=== PATIENT | female | born 1965 | race Two or more races ===

== ENCOUNTER 2023-12-12 13:18 | Outpatient (REF) | payer MEDICAID, SELFPAY ==
--- NOTE | ~2023-12-12 | CT_ITS ---
EXAMINATION: CT head/brain wo IV con CLINICAL INFORMATION: Reason for Exam tension headaches COMPARISON: None. TECHNIQUE: Contiguous axial imaging was performed from the skull base to vertex without intravenous contrast. Sagittal and coronal reformatted images were obtained. This CT examination was performed using dose optimization techniques as appropriate, variously including the following: * Automated exposure control * Adjustment of mA and/or kV according to patient size (this includes techniques or standardized protocols for targeted exams where dose is matched to indication/reason for exam; i.e. extremities or head) Use of iterative reconstruction technique DLP: 651.88 mGy-cm FINDINGS: No acute osseous or soft tissue abnormality. The mastoid air cells and visualized portions of the paranasal sinuses are well aerated. There is no evidence of acute intracranial hemorrhage or territorial infarction. No abnormal mass effect or midline shift is seen. Sandoval to white matter differentiation is well preserved. No extra-axial fluid collections are identified. No hydrocephalus. No significant volume loss. There is no abnormal attenuation within the brain parenchyma. CT/CT head/brain wo IV con IMPRESSION: Normal exam.
== END 2023-12-12 13:19 | disposition home or self-care (01) ==
LOC: HO.CT 13:18
PROVIDERS: Visit Provider Registered Nurse
DX: G44.209 Tension-type headache, unspecified, not intractable (principal)
CPT/HCPCS: 70450

== ENCOUNTER 2024-03-29 15:00 | Outpatient (AMB) | payer MEDICAID, SELFPAY ==
--- NOTE | 2024-03-29 15:05 | MHC.OFFVIS ---
Vital Signs 03/29/24 15:26 Height 5 ft 0.3 in Weight 185 lb 8 oz BMI 35.9 BP 128/70 Blood Pressure Location Lt brachial Position Sitting Respiration 16 Pulse 87 Pulse Source Pulse Oximeter Pulse Oximetry (%) 96 Oxygen Delivery Method Room Air Intake Visit Reasons: Bilateral cervical radiculopathy Intake Note: Yoana was accompanied by spouse Cisco. She comes in for initial visit was referred by primary care referred. Reports pain 7/10 Allergies No Known Allergies Allergy (Verified 03/29/24 15:11) HPI Comments Details: Leann is very pleasant 58 years old female who presents in my office with complains on pain in the cervical spine with radiation into bilateral upper extremities all the way to her wrists and fingers. She reports that this pain started 1 year ago the pain onset was gradual however now the pain is severe. She reports pain 7/10. She reports flexing had forward aggravates her pain. She reports that because of her pain she can not sleep normally can not do activities of daily living can not take care of herself can not function normally. She is on permanent disability. She needs walker or cane for ambulation. She reports today that she was placed on gabapentin 100 mg 1 tablets 3 times a day she takes medications as needed. She denies side effects of gabapentin. She was referred to MRI and MRI was done at [facility].(however when the patient was here she left me under impression when her MRI was done at [place] and I requested them to bring me the images and the copy of the report.) She never had physical therapy for her pain. She never had chiropractic manipulations. She never had any injections. Her past medical history significant for headaches history of epilepsy fatigue, diabetes, arthritis, anemia, asthma. Her past surgical history significant for right total knee replacement, breast reduction, liposuction, abdominoplasty, bariatric surgery, carpal tunnel surgery and wrist fracture surgery. Social history she is disabled individual she denies smoking cigarettes she stopped 2 years ago she denies drinking alcohol she drinks coffee but not soda she admits cannabis it helps her pain. [facility] Social History (Updated 03/29/24 @ 15:24 by Nohemi Church) Substance Use Type: Marijuana Review of Systems Const All systems reviewed & are unremarkable except as noted in HPI and below Reports no additional complaints Eyes Reports no additional complaints ENT Reports no additional complaints and Reports Normal hearing present Card Reports no additional complaints Resp Reports no additional complaints GI Reports no additional complaints Reports no additional complaints Musc Reports as per HPI Neuro Reports no additional complaints, Reports Normal hearing present, Denies Abnormal speech present, Denies confusion and Denies Sensory deficit (Neuro) Psych Reports no additional complaints and Denies confusion Physical Exam Vital Signs: Last Vital Signs Pulse 87 03/29/24 15:26 Resp 16 03/29/24 15:26 BP 128/70 03/29/24 15:26 Pulse Ox 96 03/29/24 15:26 Oxygen Delivery Method Room Air 03/29/24 15:26 BMI result Body Mass Index 35.9 Const General: no acute distress; No confusion Orientation/consciousness: patient oriented x3 and No confusion Eyes General: appearance normal, both eyes and all related structures Pupils: Equal, round and reactive pupils present EOM: EOMs intact bilaterally Neck Other: Limited range of motion cervical spine. Denies incontinence with urine and/or stool. Denies urinary retention. Denies weakness of bilateral lower extremities. Admits pain in bilateral knees and general fatigue. Tenderness on palpation in paraspinal spinal region of cervical spine. Bicep tendon reflexes and triceps tendon reflexes are brisk +2 however no clonus is observed. Neck: No full ROM and No supple Chest Chest palpation & inspection: normal inspection of the chest Resp Effort & Inspection: normal respiratory effort, able to speak in complete sentences, normal respiratory pattern, no audible wheezes and no cough Cardio Jugular venous distension: no JVD GI Inspection: Yes normal to inspection Neuro General: patient oriented x3, gait normal and No confusion Cranial nerves: Yes CN's II-XII intact bilaterally, Yes Equal, round and reactive pupils present, Yes Normal hearing present and Yes Ability to bilaterally elevate shoulders present Speech: No Abnormal speech present Gait exam (Neuro): Normal gait present Motor exam (neuro): 5/5 motor strength present throughout Sensory Exam: No Sensory deficit (Neuro) Extrem General: No pedal edema Psych Speech and movement: Normal speech and movement present Affect: normal affect Attitude: cooperative Thought process: Normal thought process present Thought content: Normal thought content present Insight: Good insight present (Psych) Judgement: Good judgement present (Psych) Results Reviewed Results Reviewed: ?MR SPINE CERVICAL without CONTRAST INDICATION: Foraminal stenosis of cervical region, pain. TECHNIQUE: Unenhanced multiplanar, multisequence MR imaging of the cervical spine. COMPARISON: None Available. FINDINGS: There is straightening of the normal cervical lordosis. Vertebral heights are well maintained. Craniocervical junction is unremarkable. There is a T2 and T1 hyperintense vertebral body lesion at the T2 vertebral level which could represent a hemangioma. Prevertebral and paraspinal soft tissues are within normal limits. Visualized portions of the posterior fossa are unremarkable. Cervical cord demonstrates normal course, caliber, and signal characteristics. No epidural fluid collection or hematoma is identified. At C2-3 there is no significant disc herniation or protrusion. No central canal or neural foraminal stenosis is demonstrated. At C3-4 there is no significant disc herniation or protrusion. Uncovertebral hypertrophy seen throughout the cervical spine. There is mild bilateral neural foraminal narrowing appreciated. No central canal stenosis is seen. At C4-5 there is slight disc bulge with uncovertebral hypertrophy. There is mild left neural foraminal narrowing and effacement of the ventral thecal sac. No central canal stenosis is seen At C5-6 there is broad-based central disc herniation with mild to moderate bilateral neural foraminal narrowing, left greater than right. Uncovertebral hypertrophy is identified. There is effacement of the ventral thecal sac. No central canal stenosis is seen. At C6-7 there is left subarticular disc protrusion is identified. There is moderate to severe left neural foraminal narrowing. Uncovertebral hypertrophy is appreciated. There is effacement of the ventral thecal sac. At C7-T1 there is central disc bulge with mild left neural foraminal narrowing. Uncovertebral hypertrophy is identified with effacement of the ventral thecal sac. IMPRESSION: Multilevel degenerative changes of the cervical spine are identified, most pronounced at C5-6 and C6-7. Uncovertebral hypertrophy is seen throughout the cervical spine. Heather Vance MD Assessment & Plan Assessment & Plan (1) Other cervical disc degeneration at C6-C7 level: Code(s): M50.323 - Other cervical disc degeneration at C6-C7 level Category: Medical (2) Radiculopathy, cervical: Code(s): M54.12 - Radiculopathy, cervical region Category: Medical (3) Chronic pain syndrome: Code(s): G89.4 - Chronic pain syndrome Category: Medical Plan When patient was in the examination room she and her boyfriend have left me with impression that she had an MRI at [facility]. However just in case I went into website of [facility] and found out that she had an MRI on 03/13/2024 results of which are dictated as above. I invited her to see me in 1 week. I may be offering her if she agrees with me interlaminar epidural steroid injection at C6-C7 interlaminar epidural steroid injection. Alternatively I can offer her neurosurgical consult because she has radiculopathic type of pain with moderate to severe left foraminal narrowing. Coding Level of Care Code New Pt Level 3 (38113) Diagnoses Other cervical disc degeneration at C6-C7 level M50.323 Radiculopathy, cervical M54.12 Chronic pain syndrome G89.4
[2024-03-29 15:26] VITALS: BP 128/70; PULSE 87; RESP 16; O2SAT 96; BMI 35.9
== END 2024-03-29 15:34 | disposition home or self-care (01) ==
PROVIDERS: PCP Physician Assistant; Referring Provider Physician Assistant; Visit Provider Anesthesiology
DX: M50.323 Other cervical disc degeneration at C6-C7 level (principal); M54.12 Radiculopathy, cervical region; G89.4 Chronic pain syndrome
CPT/HCPCS: 99203

== ENCOUNTER → 2024-03-29 15:00 | Outpatient (BNVA) | payer MEDICAID, SELFPAY | PROVIDERS: PCP Physician Assistant; Visit Provider Anesthesiology | DX: M50.323 Other cervical disc degeneration at C6-C7 level (principal); M54.12 Radiculopathy, cervical region; G89.4 Chronic pain syndrome | CPT/HCPCS: 99202 ==

== ENCOUNTER 2024-04-05 14:16 | Outpatient (AMB) | payer MEDICAID, SELFPAY ==
--- NOTE | 2024-04-05 14:24 | A.OFFVIS_ITS ---
Vital Signs 04/05/24 14:31 Height 5 ft 0.3 in Weight 185 lb 8 oz BMI 35.9 BP 130/72 Blood Pressure Location Lt brachial Position Sitting Respiration 16 Pulse 61 Pulse Source Pulse Oximeter Pulse Oximetry (%) 99 Oxygen Delivery Method Room Air Intake Visit Reasons: 1 week follow up Intake Note: Yoana was accompanied by spouse Cisco, she comes in for 1 week follow up. Reports pain 06/06. Allergies No Known Allergies Allergy (Verified 04/05/24 14:30) HPI Comments Details: Yoana is very pleasant 58 years old female who presents in my office with complains on pain in the cervical spine with radiation into bilateral upper extremities all the way to her mid forearms bilaterally. She denies radiation of the pain into wrists fingers or hands. She reports the pain mostly axial and radiation of the pain is on the background. She admits pain aggravation with flexing had backwards. She admits tenderness on palpation in paraspinal regions in the cervical spine. Therefore the pain of the patient is most likely face togenic in nature. I offered the patient diagnostic medial branch block C4-C5 C6 bilateral to help her pain. I explained the nature of diagnostic block to the patient. She had extensive physical therapy which alleviated her pain minimally. She has not satisfied with results of physical therapy. She tried OTC NSAIDs to help her pain however those medications do not help her pain. On the MRI of the cervical spine there are some changes dictated as below. All of those changes could be possible pain generators for this patient. If medial branch block diagnostic will not result in appropriate pain relief interlaminar epidural steroid injection can be offered to the patient in the attempt to alleviate her pain. Neurosurgical consult may be considered if neither diagnostic medial branch block nor epidural steroid injections will help her pain. [facility] Social History (Updated 03/29/24 @ 15:24 by Nohemi Church) Substance Use Type: Marijuana Review of Systems Const All systems reviewed & are unremarkable except as noted in HPI and below ENT Reports Normal hearing present Neuro Reports Normal hearing present, Denies Abnormal speech present, Denies confusion and Denies Sensory deficit (Neuro) Psych Denies confusion Physical Exam Vital Signs: Last Vital Signs Pulse 61 04/05/24 14:31 Resp 16 04/05/24 14:31 BP 130/72 04/05/24 14:31 Pulse Ox 99 04/05/24 14:31 Oxygen Delivery Method Room Air 04/05/24 14:31 BMI result Body Mass Index 35.9 Const General: no acute distress; No confusion Orientation/consciousness: patient oriented x3 and No confusion Eyes General: appearance normal, both eyes and all related structures Pupils: Equal, round and reactive pupils present EOM: EOMs intact bilaterally Neck Other: Limited range of motion cervical spine. Denies incontinence with urine and/or stool. Denies urinary retention. Denies weakness of bilateral lower e xtremities. Admits pain in bilateral knees and general fatigue. Tenderness on palpation in paraspinal spinal region of cervical spine. Bicep tendon reflexes and triceps tendon reflexes are brisk +2 however no clonus is observed. Neck: No full ROM and No supple Chest Chest palpation & inspection: normal inspection of the chest Resp Effort & Inspection: normal respiratory effort, able to speak in complete sentences, normal respiratory pattern, no audible wheezes and no cough Cardio Jugular venous distension: no JVD GI Inspection: Yes normal to inspection Neuro General: patient oriented x3, gait normal and No confusion Cranial nerves: Yes CN's II-XII intact bilaterally, Yes Equal, round and reactive pupils present, Yes Normal hearing present and Yes Ability to bilaterally elevate shoulders present Speech: No Abnormal speech present Gait exam (Neuro): Normal gait present Motor exam (neuro): 5/5 motor strength present throughout Sensory Exam: No Sensory deficit (Neuro) Extrem General: No pedal edema Psych Speech and movement: Normal speech and movement present Affect: normal affect Attitude: cooperative Thought process: Normal thought process present Thought content: Normal thought content present Insight: Good insight present (Psych) Judgement: Good judgement present (Psych) Results Reviewed Results Reviewed: MR SPINE CERVICAL without CONTRAST INDICATION: Foraminal stenosis of cervical region, pain. TECHNIQUE: Unenhanced multiplanar, multisequence MR imaging of the cervical spine. COMPARISON: None Available. FINDINGS: There is straightening of the normal cervical lordosis. Vertebral heights are well maintained. Craniocervical junction is unremarkable. There is a T2 and T1 hyperintense vertebral body lesion at the T2 vertebral level which could represent a hemangioma. Prevertebral and paraspinal soft tissues are within normal limits. Visualized portions of the posterior fossa are unremarkable. Cervical cord demonstrates normal course, caliber, and signal characteristics. No epidural fluid collection or hematoma is identified. At C2-3 there is no significant disc herniation or protrusion. No central canal or neural foraminal stenosis is demonstrated. At C3-4 there is no significant disc herniation or protrusion. Uncovertebral hypertrophy seen throughout the cervical spine. There is mild bilateral neural foraminal narrowing appreciated. No central canal stenosis is seen. At C4-5 there is slight disc bulge with uncovertebral hypertrophy. There is mild left neural foraminal narrowing and effacement of the ventral thecal sac. No central canal stenosis is seen At C5-6 there is broad-based central disc herniation with mild to moderate bilateral neural foraminal narrowing, left greater than right. Uncovertebral hypertrophy is identified. There is effacement of the ventral thecal sac. No central canal stenosis is seen. At C6-7 there is left subarticular disc protrusion is identified. There is moderate to severe left neural foraminal narrowing. Uncovertebral hypertrophy is appreciated. There is effacement of the ventral thecal sac. At C7-T1 there is central disc bulge with mild left neural foraminal narrowing. Uncovertebral hypertrophy is identified with effacement of the ventral thecal sac. IMPRESSION: Multilevel degenerative changes of the cervical spine are identified, most pronounced at C5-6 and C6-7. Uncovertebral hypertrophy is seen throughout the cervical spine Assessment & Plan Assessment & Plan (1) Other cervical disc degeneration at C6-C7 level: Code(s): M50.323 - Other cervical disc degeneration at C6-C7 level Category: Medical (2) Radiculopathy, cervical: Code(s): M54.12 - Radiculopathy, cervical region Category: Medical (3) Chronic pain syndrome: Code(s): G89.4 - Chronic pain syndrome Category: Medical (4) Spondylosis of cervical region without myelopathy or radiculopathy: Code(s): M47.812 - Spondylosis without myelopathy or radiculopathy, cervical region Category: Medical Plan MRI dictation as above. Spondylosis of cervical spine as well as possible radiculopathic pain could be considered. I offered this patient 1st medial branch block C4-C5 C6 bilateral diagnostic. If this will not help the patient I will offer her C5-C6 epidural steroid injection interlaminar cervical. If all of those maneuvers will not be helpful for the patient I will send her for neurosurgical consult. Patient Instructions: I here by testify that I spent 35 minutes in conversation with this patient as well as planning her care, evaluating her diagnostic studies and organizing this note. Coding Level of Care Code Est Pt Level 4 (31742) Diagnoses Other cervical disc degeneration at C6-C7 level M50.323 Radiculopathy, cervical M54.12 Chronic pain syndrome G89.4 Spondylosis of cervical region without myelopathy or radiculopathy M47.812
[2024-04-05 14:31] VITALS: BP 130/72; PULSE 61; RESP 16; O2SAT 99; BMI 35.9
== END 2024-04-05 14:58 | disposition home or self-care (01) ==
PROVIDERS: PCP Physician Assistant; Referring Provider Physician Assistant; Visit Provider Anesthesiology
DX: M50.323 Other cervical disc degeneration at C6-C7 level (principal); G89.4 Chronic pain syndrome; M47.22 Other spondylosis with radiculopathy, cervical region
CPT/HCPCS: 99214

== ENCOUNTER → 2024-04-05 14:16 | Outpatient (BNVA) | payer MEDICAID, SELFPAY | PROVIDERS: PCP Physician Assistant; Visit Provider Anesthesiology | DX: M47.812 Spondylosis without myelopathy or radiculopathy, cervical region (principal); M54.12 Radiculopathy, cervical region; M50.323 Other cervical disc degeneration at C6-C7 level; G89.4 Chronic pain syndrome | CPT/HCPCS: 99212 ==

== ENCOUNTER 2024-05-29 06:15 | Outpatient (REF) | payer MEDICAID, SELFPAY | END 2024-05-29 06:16 | disposition home or self-care (01) | LOC: CF 06:15 | PROVIDERS: Visit Provider Anesthesiology | DX: Z13.89 Encounter for screening for other disorder (principal) ==

== ENCOUNTER 2024-10-02 06:15 | Outpatient (REF) | payer MEDICAID, SELFPAY | END 2024-10-02 06:16 | disposition home or self-care (01) | LOC: CF 06:15 | PROVIDERS: Visit Provider Anesthesiology | DX: M47.812 Spondylosis without myelopathy or radiculopathy, cervical region (principal) | CPT/HCPCS: 64490; 64491; J2003; J2795; Q9967 ==

== ENCOUNTER 2024-10-02 09:26 | Outpatient (AMB) | payer MEDICAID, SELFPAY ==
--- NOTE | 2024-10-02 09:40 | MHC.OFFVIS ---
Vital Signs 10/02/24 09:46 10/02/24 11:31 Height 5 ft 0.3 in 5 ft 0.3 in Weight 185 lb 185 lb BMI 35.8 35.8 BP 138/90 H 147/83 H Blood Pressure Location Lt brachial Lt brachial Position Sitting Sitting Respiration 14 14 Pulse 84 71 Pulse Source Pulse Oximeter Pulse Oximeter Pulse Oximetry (%) 99 100 Oxygen Delivery Method Room Air Room Air Comment pre-op post-op Intake Visit Reasons: BILATERAL DIAGNOSTIC C4, C5, C6 MBB Allergies No Known Allergies Allergy (Verified 10/02/24 11:32) PFSH Social History (Updated 03/29/24 @ 15:24 by Nohemi Church) Substance Use Type: Marijuana Physical Exam Vital Signs: Last Vital Signs Pulse 71 10/02/24 11:31 Resp 14 10/02/24 11:31 BP 147/83 H 10/02/24 11:31 Pulse Ox 100 10/02/24 11:31 Oxygen Delivery Method Room Air 10/02/24 11:31 BMI result Body Mass Index 35.8 Assessment & Plan Assessment & Plan (1) Spondylosis of cervical region without myelopathy or radiculopathy: Code(s): M47.812 - Spondylosis without myelopathy or radiculopathy, cervical region Category: Medical Plan Diagnostic bilateral C4-C5 C6 MBB. Informed consent was obtained before the procedure were risks benefits and alternatives were carefully explained to the patient. All questions were answered to patient's satisfaction. Patient came to the operating room and positioned prone on the operating table. The posterior neck and upper back were prepped with ChloraPrep and draped with sterile utility towels. C-arm was brought over the operating field and sq picture of patient's cervical spine was demonstrated on the screen. Lateral masses of C4-C5 and C6 vertebras bilateral were chosen as the target of the injections. The waistline of all the lateral masses were chosen as the end point of the needle advancement. After that projection of the point of interest to the skin was injected with small amount of lidocaine 2% mixed with ropivacaine 0.5% one-to-one. After that 3 22 gauge 3 and 1/2 inch long spinal needles were driven to were the points of interest in tunnel vision fashion 1st on the right and 2nd on the left. When needle gently contacted the bones injection of the contrast was performed. . At the rest of the positions there were no intravascular spread. After that injection of the diagnostic medication comprising of ropivacaine 0.5% no more than 1 mL was injected into each needle positioned. Upon completion of the injections the needles were withdrawn and sterile band that was applied. The patient tolerated procedure well although she was slightly dizzy in the recovery room. Orders: Orders FL guidance in treatment room Today M47.812 - Spondylosis without myelopathy or radiculopathy, cervical region Coding Level of Care Code Procedure Only Diagnoses Spondylosis of cervical region without myelopathy or radiculopathy M47.812
[2024-10-02 09:46] VITALS: BP 138/90; PULSE 84; RESP 14; O2SAT 99; BMI 35.8
[2024-10-02 11:31] VITALS: BP 147/83; PULSE 71; RESP 14; O2SAT 100; BMI 35.8
== END 2024-10-02 11:57 | disposition home or self-care (01) ==
LOC: HO.PMCPRC 09:26
PROVIDERS: PCP Physician Assistant; Visit Provider Anesthesiology
DX: M47.812 Spondylosis without myelopathy or radiculopathy, cervical region (principal)
CPT/HCPCS: 64490; 64491

== ENCOUNTER 2024-10-10 10:30 | Outpatient (AMB) | payer MEDICAID, SELFPAY ==
[2024-10-10 10:55] VITALS: BP 138/88; PULSE 77; RESP 16; O2SAT 97; BMI 34.7
--- NOTE | 2024-10-10 10:55 | MHC.OFFVIS ---
Vital Signs 10/10/24 10:55 Height 5 ft 0.3 in Weight 179 lb 4 oz BMI 34.7 BP 138/88 Blood Pressure Location Lt brachial Position Sitting Respiration 16 Pulse 77 Pulse Source Pulse Oximeter Pulse Oximetry (%) 97 Oxygen Delivery Method Room Air Intake Visit Reasons: BILATERAL DIAGNOSTIC C4, C5, C6 MBB Intake Note: Patient comes in for post-op. Reports pain 3/10. Certified Nurse Aide Required: Yes Certified Nurse Aide Services: Certified Nurse Aide Offered & Declined Certified Nurse Aide Name: Spouse Cisco Accompanied by: Spouse Allergies No Known Allergies Allergy (Verified 10/10/24 10:58) HPI Comments Details: Yoana is back in my office after diagnostic medial branch block C4-C5 C6 bilateral which was performed on 10/02/2024. She reports that why she has significant discomfort from the needle stick injections she had immediate and almost complete pain relief from the discomfort of her chronic pain. She reported very good mobility restored to her neck. She record excellent activities of daily living. She is able to demonstrate improved range of motion of her cervical spine. She reports today her pain is 3/10. Her chronic pain immediately after the injection disappeared was 0/10 while she is still was experiencing some irritation and discomfort from needle injections. I offered to the patient and explained to her that I prefer to do sprint PNS for her. I explained for her details of the procedure. I will schedule her for this procedure in the injection area without sedation. Prior: very pleasant 58 years old female who presents in my office with complains on pain in the cervical spine with radiation into bilateral upper extremities all the way to her mid forearms bilaterally. She denies radiation of the pain into wrists fingers or hands. She reports the pain mostly axial and radiation of the pain is on the background. She admits pain aggravation with flexing had backwards. She admits tenderness on palpation in paraspinal regions in the cervical spine. Therefore the pain of the patient is most likely facetogenic in nature. I offered the patient diagnostic medial branch block C4-C5 C6 bilateral to help her pain. I explained the nature of diagnostic block to the patient. She had extensive physical therapy which alleviated her pain minimally. She has not satisfied with results of physical therapy. She tried OTC NSAIDs to help her pain however those medications do not help her pain. On the MRI of the cervical spine there are some changes dictated as below. All of those changes could be possible pain generators for this patient. If medial branch block diagnostic will not result in appropriate pain relief interlaminar epidural steroid injection can be offered to the patient in the attempt to alleviate her pain. Neurosurgical consult may be considered if neither diagnostic medial branch block nor epidural steroid injections will help her pain. [facility] Social History (Updated 03/29/24 @ 15:24 by Nohemi Church) Substance Use Type: Marijuana Review of Systems Const All systems reviewed & are unremarkable except as noted in HPI and below ENT Reports Normal hearing present Neuro Reports Normal hearing present, Denies Abnormal speech present, Denies confusion and Denies Sensory deficit (Neuro) Psych Denies confusion Physical Exam Vital Signs: Last Vital Signs Pulse 77 10/10/24 10:55 Resp 16 10/10/24 10:55 BP 138/88 10/10/24 10:55 Pulse Ox 97 10/10/24 10:55 Oxygen Delivery Method Room Air 10/10/24 10:55 BMI result Body Mass Index 34.7 Const General: no acute distress; No confusion Orientation/consciousness: patient oriented x3 and No confusion Eyes General: appearance normal, both eyes and all related structures Pupils: Equal, round and reactive pupils present EOM: EOMs intact bilaterally Neck Other: Limited range of motion cervical spine however with improvement today. Denies incontinence with urine and/or stool. Denies urinary retention. Denies weakness of bilateral lower extremities. Admits pain in bilateral knees and general fatigue. Tenderness on palpation in paraspinal spinal region of cervical spine. Bicep tendon reflexes and triceps tendon reflexes are brisk +2 however no clonus is observed. Neck: No full ROM and No supple Chest Chest palpation & inspection: normal inspection of the chest Resp Effort & Inspection: normal respiratory effort, able to speak in complete sentences, normal respiratory pattern, no audible wheezes and no cough Cardio Jugular venous distension: no JVD GI Inspection: Yes normal to inspection Neuro General: patient oriented x3, gait normal and No confusion Cranial nerves: Yes CN's II-XII intact bilaterally, Yes Equal, round and reactive pupils present, Yes Normal hearing present and Yes Ability to bilaterally elevate shoulders present Speech: No Abnormal speech present Gait exam (Neuro): Normal gait present Motor exam (neuro): 5/5 motor strength present throughout Sensory Exam: No Sensory deficit (Neuro) Extrem General: No pedal edema Psych Speech and movement: Normal speech and movement present Affect: normal affect Attitude: cooperative Thought process: Normal thought process present Thought content: Normal thought content present Insight: Good insight present (Psych) Judgement: Good judgement present (Psych) Results Reviewed Results Reviewed: MR SPINE CERVICAL without CONTRAST INDICATION: Foraminal stenosis of cervical region, pain. TECHNIQUE: Unenhanced multiplanar, multisequence MR imaging of the cervical spine. COMPARISON: None Available. FINDINGS: There is straightening of the normal cervical lordosis. Vertebral heights are well maintained. Craniocervical junction is unremarkable. There is a T2 and T1 hyperintense vertebral body lesion at the T2 vertebral level which could represent a hemangioma. Prevertebral and paraspinal soft tissues are within normal limits. Visualized portions of the posterior fossa are unremarkable. Cervical cord demonstrates normal course, caliber, and signal characteristics. No epidural fluid collection or hematoma is identified. At C2-3 there is no significant disc herniation or protrusion. No central canal or neural foraminal stenosis is demonstrated. At C3-4 there is no significant disc herniation or protrusion. Uncovertebral hypertrophy seen throughout the cervical spine. There is mild bilateral neural foraminal narrowing appreciated. No central canal stenosis is seen. At C4-5 there is slight disc bulge with uncovertebral hypertrophy. There is mild left neural foraminal narrowing and effacement of the ventral thecal sac. No central canal stenosis is seen At C5-6 there is broad-based central disc herniation with mild to moderate bilateral neural foraminal narrowing, left greater than right. Uncovertebral hypertrophy is identified. There is effacement of the ventral thecal sac. No central canal stenosis is seen. At C6-7 there is left subarticular disc protrusion is identified. There is moderate to severe left neural foraminal narrowing. Uncovertebral hypertrophy is appreciated. There is effacement of the ventral thecal sac. At C7-T1 there is central disc bulge with mild left neural foraminal narrowing. Uncovertebral hypertrophy is identified with effacement of the ventral thecal sac. IMPRESSION: Multilevel degenerative changes of the cervical spine are identified, most pronounced at C5-6 and C6-7. Uncovertebral hypertrophy is seen throughout the cervical spine Assessment & Plan Assessment & Plan (1) Other cervical disc degeneration at C6-C7 level: Code(s): M50.323 - Other cervical disc degeneration at C6-C7 level Category: Medical (2) Radiculopathy, cervical: Code(s): M54.12 - Radiculopathy, cervical region Category: Medical (3) Chronic pain syndrome: Code(s): G89.4 - Chronic pain syndrome Category: Medical (4) Spondylosis of cervical region without myelopathy or radiculopathy: Code(s): M47.812 - Spondylosis without myelopathy or radiculopathy, cervical region Category: Medical Plan I will schedule this patient for sprint PNS bilateral. The results of the diagnostic injection are very prominent see as above. I will see this patient in the office after the implantation of sprint PNS. With negative results of sprint PNS I will send her for neurosurgical consult. Patient Instructions: I here by testify that I spent 32 minutes in conversation with this patient as well as planning her care and organizing this note. The patient insisted on her friend interpreting today during the office visit. Coding Level of Care Code Est Pt Level 4 (60748) Diagnoses Other cervical disc degeneration at C6-C7 level M50.323 Radiculopathy, cervical M54.12 Chronic pain syndrome G89.4 Spondylosis of cervical region without myelopathy or radiculopathy M47.812
== END 2024-10-10 11:07 | disposition home or self-care (01) ==
PROVIDERS: PCP Physician Assistant; Visit Provider Anesthesiology
DX: M50.323 Other cervical disc degeneration at C6-C7 level (principal); M54.12 Radiculopathy, cervical region; G89.4 Chronic pain syndrome; M47.812 Spondylosis without myelopathy or radiculopathy, cervical region
CPT/HCPCS: 99214

== ENCOUNTER → 2024-10-10 10:30 | Outpatient (BNVA) | payer MEDICAID, SELFPAY | PROVIDERS: PCP Physician Assistant; Visit Provider Anesthesiology | DX: M50.323 Other cervical disc degeneration at C6-C7 level (principal); M54.12 Radiculopathy, cervical region; G89.4 Chronic pain syndrome; M47.812 Spondylosis without myelopathy or radiculopathy, cervical region; Z98.890 Other specified postprocedural states | CPT/HCPCS: 99212 ==

== ENCOUNTER 2024-11-30 11:38 | Outpatient (REF) | payer MEDICAID, SELFPAY ==
[2024-11-30 13:06] LABS: C Reactive Protein 1.69 mg/dL (< or = 0.50)
[2024-11-30 13:09] LABS: Erythrocyte Sedimentation Rate 11 MM/HR (0-20)
--- OUTSIDE RECORDS SUMMARY | 2024-11-30 13:28 | XMS_ITS | Continuity of Care Document ---
Author Organization [facility], [facility] Address [address] [place] [address] Care Team Providers Care Pin Or Clip Fastener Name Role Phone [facility] Primary Care Provider [phone] Assessment Encounter Date Assessment Date Assessment LastModified by Organization Details LastModified Time 10/03/2024 10/03/2024 58 year old Belarusian speaking female presents to the office for evaluation of her hearing. TMs are intact with well aerated middle ear spaces bilaterally. Brasher was midline. Audiometric testing demonstrates right moderate raising to mild sensorineural hearing loss and left mild sensorineural hearing loss raising to normal hearing at the high frequencies. Given the asymmetry we have recommended MRI IAC. Patient to follow up in the office to review MRI and receive clearance for hearing aids. Significant other was copper flotation operator Patient was seen and examined by Dr. Rowell. Adriana Donnelly PA-C functioned as a scribe for this visit. martínez Not available 10/03/2024 12:41:08 Plan of Treatment Reminders Order Date Submit Date Provider Last Modified By Organization Details Last Modified Time Details Appointments Establish ed 30 2024 01:00P M ADRIANA DONNELLY PA-C Not available Not available Not available Lab None recorded. Referral None recorded. Procedures None recorded. Surgeries None recorded. Imaging MRI, brain + internal auditory canal, w/wo contrast [address] [facility] [address] [place], [address], 10/03/2024 10:01:28 Medication Orders None recorded. Patient TargetsNo targets recorded. Patient InstructionsNo instructions recorded. Reason for Referral None Reported. Results Created Date Observation Date Name Description Value Unit Range Abnormal Flag Note LastModifiedBy Organization Detail LastModifiedTime 10/03/20 audio gram No observ ation record ed. BARCODE Not Available 2023 10:04:50 10/03/20 24 10/03/2024 audio gram No observ ation record ed. [email or web address] Not Available 04/2024 10:05:12 Result Notes None recorded. Problems Name Problem SNOMED Code Status Onset Date Resolution Date Notes Provider Name and Address Organization Details Recorded Time Sensorine ural hearing loss 97640259 Active 2019 Perceptiv e hearing loss NOS; Note: Date Diagnosed : 04/07/2020 3:18 PM (H90.5) Not Available [facility] 4 03:12:21 Sensorine ural hearing loss in right ear 18154118799 100 Active 2020 Sensorine ural hearing loss, unilatera l, right ear, with restricte d hearing on the contralat eral side; Note: Date Diagnosed : 07/13/2021 2:08 PM (H90.A21) Not Available [facility] 4 03:12:22 Lesion of oral mucosa 02291227446 43034 Active 2019 Other lesions of oral mucosa; Note: Date Diagnosed : 04/07/2020 3:09 PM (K13.79) Not Available [facility] 4 03:12:22 Dizziness and giddiness 493263724 Active 2020 Dizziness and giddiness ; Note: Date Diagnosed : 07/13/2021 2:07 PM (R42) Not Available [facility] 4 03:12:22 Sensorine ural hearing loss of bilateral ears 274507208 Active 2023 Jo miles [place] - [facility] 4 09:31:14 Problem Notes None recorded. Procedures Surgical History Date Name Laterality Status Provider Name and Address Organization Details Recorded Time 10/03/20 24 Tympanometry (01989) completed Jo Lund [place] - [facility] 10/03/2024 09:31:07 10/03/20 24 [employer] (71817) completed Jo Lund [place] - [facility] 10/03/2024 09:31:01 Imaging Results None recorded. Procedure Notes None recorded. Medical Equipment None Reported. Allergies No known drug allergies Medications Name Sig Start Date Stop Date Status Note LastModified by Organization Details LastModified Time cyclobenz aprine 10 mg tablet TOME 1 TABLETA POR V A ORAL TODOS LOS D AL ACOSTARS E 10/03 completed Not Available Not Available Not Available prednison e 10 mg tablet TOME 4 TABLETAS POR V A ORAL TODOS LOS D POR 5 D 10/03 completed Not Available Not Available Not Available ipratropi um 0.5 mg-albute rol 3 mg (2.5 mg base)/3 mL nebulizat ion soln INHALE 1 VIAL VIA NEBULIZE R TWICE DAILY 10/03 completed Not Available Not Available Not Available cetirizin e 10 mg tablet TOME 1 TABLETA POR V A ORAL TODOS LOS D active Not Available Not Available No t Available azithromy ruma 250 mg tablet TOME 2 TABLETAS V A ORAL HOY, [place] TOME 1 TABLETA DIARIAME NTE MIGUEL 4 D SEG N LAS INDICACI ONES 10/03 completed Not Available Not Available Not Available meloxicam 15 mg tablet TOME 1 TABLETA POR V A ORAL TODOS LOS D active Not Available Not Available No t Available sertralin e 100 mg tablet TOME 1 TABLETA POR V A ORAL TODOS LOS D EN LA AMBER CHECO 10/03 completed Not Available Not Available Not Available phenytoin sodium extended 100 mg capsule TOME 2 CAPSULAS POR VIA ORAL DOS VECES AL SHANDRA active Not Available Not Available No t Available fexofenad ine 180 mg tablet 10/03 completed Medicati on ID: [id number] D uration Value: 30 Brand Name: fexofena dine Sen d Method: E-Prescr ibed Sub s Allowed: subs OK Medic ationGen ericName : fexofena dine Not Available Not Available Not Available levofloxa ruma 250 mg tablet TOME EDENILSON TABLETA TODOS LOS D 10/03 completed Not Available Not Available Not Available omeprazol e 40 mg capsule,d elayed release active Medicati on ID: [id number] D uration Value: 30 Brand Name: omeprazo le Send Method: E-Prescr ibed Sub s Allowed: subs OK Medic ationGen ericName : omeprazo le Not Available Not Available Not Available butalbita l-acetami nophen-ca ffeine 50 mg-325 mg-40 mg tablet TAKE 1 TABLET BY MOUTH ONCE DAILY NEEDED FOR HEADACHE S*20/30 PER INSURANC E active Not Available Not Available No t Available pantopraz ole 20 mg tablet,de layed release TAKE 2 TABLETS BY MOUTH EVERY MORNING ON EMPTY STOMACH, WAIT 30MIN THEN EAT TO ACTIVATE THE MED 10/03 completed Not Available Not Available Not Available famotidin e 20 mg tablet TAKE 1 TABLET BY MOUTH 2 TIMES DAILY NEEDED FOR HEARTBUR N. 10/03 completed Not Available Not Available Not Available mirtazapi ne 30 mg tablet 10/03 completed Medicati on ID: [id number] D uration Value: 30 Brand Name: mirtazap ine Send Method: E-Prescr ibed Sub s Allowed: subs OK Speci al Instruct ion: TOME EDENILSON TABLETA POR V?A ORAL AL ACOSTARS E Medica tionGene ricName: mirtazap ine Not Available Not Available Not Available omeprazol e 20 mg capsule,d elayed release 10/03 completed Medicati on ID: [id number] D uration Value: 30 Brand Name: omeprazo le Send Method: E-Prescr ibed Sub s Allowed: subs OK Medic ationGen ericName : omeprazo le Not Available Not Available Not Available oxcarbaze pine 600 mg tablet TOME EDENILSON TABLETA POR VIA ORAL DOS VECES AL SHANDRA ORALLY TWICE A DAY 90 DAYS active Not Available Not Available No t Available monteluka st 10 mg tablet TOME 1 TABLETA POR V A ORAL TODOS LOS D AL ACOSTARS E active Not Available Not Available No t Available alcohol swabs USE TODOS LOS D active Not Available Not Available No t Available lisinopri l 5 mg tablet TOME 1 TABLETA POR V A ORAL TODOS LOS D AL ACOSTARS E active Not Available Not Available No t Available gabapenti n 100 mg capsule TOME 1 CAPSULA POR VIA ORAL HEMALATHA VECES AL SHANDRA active Not Available Not Available No t Available fluticaso ne propionat e 50 mcg/actua tion nasal spray,hodan pension ROCIAR 2 VECES BY NASAL ROUTE A DIARIO active Not Available Not Available No t Available Ventolin HFA 90 mcg/actua tion aerosol inhaler INHALE 2 PUFFS INTO THE LUNGS 4 TIMES DAILY NEEDED FOR COUGH OR WHEEZING . active Not Available Not Available No t Available Delmi-Lant a 200 mg-200 mg-20 mg/5 mL oral suspensio n TAKE 15 ML BY MOUTH 4 TIMES DAILY NEEDED FOR OTHER. 10/03 completed Not Available Not Available Not Available Vitamin B-12 2,500 mcg sublingua l tablet DISSOLVE 1 TABLET POR VIA ORAL TODOS LOS MORGAN active Not Available Not Available No t Available cyclobenz aprine 5 mg tablet TOME 1 TABLETA POR VIA ORAL TODOS LOS MORGAN AL ACOSTARS E CUANDO SEA NECESARI O FOR 30 DAYS active Not Available Not Available No t Available mirtazapi ne 7.5 mg tablet TOME EDENILSON TABLETA POR V A ORAL CADA NOCHE active Not Available Not Available No t Available Symbicort 160 mcg-4.5 mcg/actua tion HFA aerosol inhaler INHALE DANDO DOS SOPLIDOS INTO THE LUNGS DOS VECES AL SHANDRA 10/03 completed Not Available Not Available Not Available diclofena c 1 % topical gel APPLY 2 GRAMS TO THE AFFECTED AREA(S) BY TOPICAL ROUTE 4 TIMES PER DAY active Not Available Not Available No t Available Breo Ellipta 100 mcg-25 mcg/dose powder for inhalatio n TOME EDENILSON INHALACI N POR V A ORAL TODOS LOS D 10/03 completed Not Available Not Available Not Available Trulicity 0.75 mg/0.5 mL subcutane ous pen injector INJECT 1 PEN SUBCUTAN EOUSLY ONCE WEEKLY active Not Available Not Available No t Available Breo Ellipta 200 mcg-25 mcg/dose powder for inhalatio n TOME EDENILSON INHALACI N POR V A ORAL TODOS LOS D active Not Available Not Available No t Available baclofen 5 mg tablet 10/03 completed Medicati on ID: [id number] D uration Value: 10 Brand Name: baclofen Send Method: E-Prescr ibed Sub s Allowed: subs OK Medic ationGen ericName : baclofen Not Available Not Available Not Available Vitals Date Recorded Body height Body mass index (BMI) Body weight Provider Name and Address Organization Details Last Updated DateTime 10/03/2024 162.56 cm 31.1 kg/m2 86808.22 g Lizbet Brock [place] - [facility] 10/03/2024 09:37:32 Social History None recorded. Functional Status None recorded. Mental Status None recorded. Family History Nothing Reported. Medical History No medical history recorded. Gynecological HistoryNo gynecological history recorded. Obstetrics History GPAL:G 0 P 0 0 0 0 Past Encounters Encounter ID Performer Location Encounter Start Date Encounter Closed Date Diagnosis/Indication Diagnosis SNOMED-CT Code Diagnosis ICD10 Code [id number] ANDRES DESIR MD [facility] [address] [address] 10/03/2024 08:58:57 10/03/2024 10:04:15 Sensorineural hearing loss of bilateral ears [id number] H90.3 Health Concerns Section Related Observation LastModified by Organization Detai ls LastModified Time None Recorded Concern Status LastModified by Organization Details LastModified Time None Recorded Payers Encounter Date Sequence Insurance Name Policy Number Policy Emmanuel Covered Member ID Emmanuel Member ID Guarantor Name 10/03/2024 2 [facility] - DOS ON OR AFTER 2023 - MEDICARE ADVANTAGE [place] (MEDICARE REPLACEMENT/AD VANTAGE - PPO) Yoana Blanca [id number] Yoana Blanca 10/03/2024 1 [place] [facility] Yoana Blanca [id number] Yoana Blanca Notes Date Note Type Note Provider Name and Address Organization Details Recorded Time 10/03/2024 text/html 58 year old Belarusian speaking female presents to the office for evaluation of her hearing. She was seen over three years ago but did not receive hearing aids due to Covid. She did not end up having an MRI and was lost to follow up. She reports that her right ear has felt clogged for over a year. She notices difficulty hearing out of the right ear. She presents to the office with her boyfriend who helps translate for her. Significant other was copper flotation operator ANDRES ROWELL MD [address] [place] [address], [phone], [place] - [facility] 10/03/2024 12:41:20 OBGyn Episode No OBEpisode recorded.
== END 2024-11-30 11:39 | disposition home or self-care (01) ==
LOC: HO.LAB 11:38
PROVIDERS: PCP Physician Assistant; Visit Provider Registered Nurse
DX: G43.909 Migraine, unspecified, not intractable, without status migrainosus (principal)
CPT/HCPCS: 36415; 85652; 86140

== ENCOUNTER 2024-12-25 06:15 | Outpatient (REF) | payer MEDICAID, SELFPAY ==
--- NOTE | ~2024-12-25 | FL_ITS ---
EXAMINATION: FL GUIDANCE ONLY HISTORY: M47.812 - Spondylosis without myelopathy or radiculopathy, cervical region COMPARISON: None available. TECHNIQUE: Fluoroscopy time: 0.2 minutes. Cumulative Dose: 2.82 mGy. DAP: 0.0487 uGy-m2 (microgray-meter squared). Images: 2. FINDINGS: Images demonstrate an electrode in the right neck. FL/FL guidance in treatment room IMPRESSION: Fluoroscopy during procedure. Please see procedure report for additional information. Electronically signed by: Oscar Timmons MD 12/26/2024 07:36 AM CHRISTINE
--- OUTSIDE RECORDS SUMMARY | 2024-12-25 06:24 | XMS_ITS | Data Portability ---
Author Organization [place] - [facility], Allergy Address [address] [place] [address] Care Team Providers Care Cavalry Scout Name Role Phone [facility] Primary Care Provider Assessment Encounter Date Assessment Date Assessment LastModified by Organization Details LastModified Time 10/03/2024 10/03/2024 58 year old Vietnamese speaking female presents to the office for [...] clearance for hearing aids. Significant other was chha Patient was seen and examined by Dr. Rowell. Adriana Donnelly PA-C functioned as a scribe for this visit. martínez Not available 10/03/2024 12:41:08 Plan of Treatment Reminders Order Date Submit Date Provider Last Modified By Organization Details Last Modified Time Details Appointments Establish ed 15 2024 01:15P M ADRIANA DONNELLY PA-C Not available Not available Not available Lab None recorded. Referral None recorded. Procedures None recorded. Surgeries None recorded. Imaging MRI, brain + internal auditory canal, w/wo contrast 2023 024 [facility] [address] [place], [address], 10/03/2024 10:01:28 Medication Orders None recorded. Patient TargetsNo targets recorded. Patient InstructionsNo instructions recorded. Reason for Referral None Reported. Results Created Date Observation Date Name Description Value Unit Range Abnormal Flag Note LastModifiedBy Organization Detail LastModifiedTime 10/03/20 audio gram No observ ation record ed. BARCODE Not Available 2023 10:04:50 10/03/20 24 10/03/2024 audio gram No observ ation record ed. [email or web address] Not Available 04/2024 10:05:12 Result Notes None recorded. Problems Name Problem SNOMED Code Status Onset Date Resolution Date Notes Provider Name and Address Organization Details Recorded Time Sensorine ural hearing loss 74973634 Active 2019 Perceptiv e hearing loss NOS; Note: Date Diagnosed : 04/07/2020 3:18 PM (H90.5) Not Available [facility] 4 03:12:21 Sensorine ural hearing loss in right ear 32474756049 100 Active 2020 Sensorine ural hearing loss, unilatera l, right ear, with restricte d hearing on the contralat eral side; Note: Date Diagnosed : 07/13/2021 2:08 PM (H90.A21) Not Available [facility] 4 03:12:22 Lesion of oral mucosa 49355892151 76045 Active 2019 Other lesions of oral mucosa; Note: Date Diagnosed : 04/07/2020 3:09 PM (K13.79) Not Available [facility] 4 03:12:22 Dizziness and giddiness 554343390 Active 2020 Dizziness and giddiness ; Note: Date Diagnosed : 07/13/2021 2:07 PM (R42) Not Available [facility] 4 03:12:22 Sensorine ural hearing loss of bilateral ears 743417226 Active 2023 Jo miles [place] - [facility] 4 09:31:14 Problem Notes None recorded. Procedures Surgical History Date Name Laterality Status Provider Name and Address Organization Details Recorded Time 10/03/20 24 Tympanometry (84495) completed Jo Lund [place] - [facility] 10/03/2024 09:31:07 10/03/20 24 [employer] (28499) completed Jo Lund [place] - [facility] 10/03/2024 09:31:01 Imaging Results Imaging Date Name Status LastModified by Organiz ation Details LastModified Time 10/03/2024 audiogram completed BARCODE Information no t available 10/03/2024 10:04:50 10/03/2024 audiogram completed Information n ot available 10/03/2024 10:05:12 Procedure Notes None recorded. Medical Equipment None [...] V A ORAL TODOS LOS D EN JENNIFER KESSLER 10/03 completed Not Available Not Available Not Available phenytoin sodium extended 100 mg capsule TOME 2 CAPSULAS POR VIA ORAL DOS VECES AL SHANDRA active Not Available Not Available No t Available fexofenad ine 180 mg tablet 10/03 completed Medicati on ID: [id number] D uration Value: 30 Brand Name: fexofena dine Sen d Method: E-Prescr ibed Sub s Allowed: subs OK Medic ationGen ericName : fexofena dine Not Available Not Available Not Available levofloxa ruma 250 mg tablet TOME EDENILSON TABLETA TODOS LOS D 10/03 completed Not Available Not Available Not Available omeprazol e 40 mg capsule,d elayed release active Medicati on ID: [id number] D uration Value: 30 Brand Name: omeprazo [...] mg tablet 10/03 completed Medicati on ID: [id number] D uration Value: 30 Brand Name: mirtazap ine Send Method: E-Prescr ibed Sub s Allowed: subs OK Speci al Instruct ion: TOME EDENILSON TABLETA POR V?A ORAL AL ACOSTARS E Medica tionGene ricName: mirtazap ine Not Available Not Available Not Available omeprazol e 20 mg capsule,d elayed release 10/03 completed Medicati on ID: [id number] D uration Value: 30 Brand Name: omeprazo [...] mg tablet 10/03 completed Medicati on ID: [id number] D uration Value: 10 Brand Name: baclofen Send Method: E-Prescr ibed Sub s Allowed: subs OK Medic ationGen ericName : baclofen Not Available Not Available Not Available Vitals Date Recorded Body height Body mass index (BMI) Body weight Provider Name and Address Organization Details Last Updated DateTime 10/03/2024 162.56 cm 31.1 kg/m2 22267.22 g Lizbet Brock [place] - [facility] 10/03/2024 09:37:32 Social History None recorded. Functional Status None recorded. Mental Status None recorded. Family History Nothing Reported. Medical History No medical history recorded. Gynecological HistoryNo gynecological history recorded. Obstetrics History GPAL:G 0 P 0 0 0 0 Past Encounters Encounter ID Performer Location Encounter Start Date Encounter Closed Date Diagnosis/Indication Diagnosis SNOMED-CT Code Diagnosis ICD10 Code Diagnosis Note [id number] ANDRES DESIR MD [facility] [address] [address] 10/03/2024 08:58:57 10/03/2024 10:04:15 Sensorineural hearing loss of bilateral ears 123535485 H90.3 Audiologic al evaluation results: Right ear: {{Normal N ormal through 2 kHz Mild M oderate* M oderately- severe Sev ere Profou nd}} {{hearing sloping to a mild slopi ng to a moderate s loping to moderately severe slo ping to severe slo ping to profound f lat high frequency low frequency mid frequency cookie bite lowry curve rais ing to mild#}} {{with sen sorineural hearing loss with* cond uctive hearing loss with mixed hearing loss with}} {{excellen t good lauri r poor no measurable *}} word recognitio n. Left ear: {{Normal N ormal through 2 kHz Mild M oderate Mo derately-s evere Marva re Profoun d Mild SNHL raising to WNL#}} {{with* se nsorineura l hearing loss with condu ctive hearing loss with mixed hearing loss with}} {{excellen t good lauri r poor no measurable *}} word recognitio n. SRT and WRS could not be measured due to language barriers. Tympanomet ry: Right Ear:{{Type A Type As Type Ad Type C Type C, shallow & rounded Ty pe B* Type B with large volume Cou ld not maintain a hermetic seal}} Left Ear:{{Type A* Type As Type Ad Type C Type C, shallow & rounded Ty pe B Type B with large volume Cou ld not maintain a hermetic seal}} Health Concerns Section Related Observation LastModified by Organization Detai ls LastModified Time None Recorded Concern Status LastModified by Organization Details LastModified Time None Recorded Advance Directives Directive None Recorded Payers Encounter Date Sequence Insurance Name Policy Number Policy Emmanuel Covered Member ID Emmanuel Member ID Guarantor Name 10/03/2024 2 [facility] - DOS ON OR AFTER 2023 - MEDICARE [place]VANTAGE [place] (MEDICARE REPLACEMENT/AD VANTAGE - PPO) Yoana Blanca [id number] Yoana Blanca 10/03/2024 1 [place] [facility] Yoana Blanca [id number] Yoana Blanca Notes Date Note Type Note Provider Name and Address Organization Details Recorded Time 10/03/2024 text/html 58 year old Vietnamese speaking female presents to the office for [...] helps translate for her. Significant other was chha ANDRES ROWELL MD [address] [place] [address], [place], [address], [facility] - [facility] 10/03/2024 12:41:20 OBGyn Episode No OBEpisode recorded.
--- OUTSIDE RECORDS SUMMARY | 2024-12-25 06:24 | XMS_ITS ---
Author Organization [facility] Address [address] [address] Care Team Providers Care Track Inspecting Supervisor Name Role Phone Salud Whittaker PA-C Primary Care Provider [id number] [facility] Program Status:Enrolled (Active) Start date:08/05/2023 Enrollment date:08/05/2023 Case Team Name Relationship Phone Meg Aguilar LPN (Responsible Staff) [phone] Continued Care and Services Coordination
--- OUTSIDE RECORDS SUMMARY | 2024-12-25 06:24 | XMS_ITS | Clinical Summary ---
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 complication, without long-term current use of insulin ([facility]) Hand arthritis Essential hypertension, benign Mixed headache Left hip pain STD exposure LIPID PANEL Routine 09/26/2024 1:05 PM EDT Routine general medical examination at a [facility] facility Type 2 diabetes mellitus without complication, without long-term current use of insulin ([facility]) Hand arthritis Essential hypertension, benign Mixed headache Left hip pain STD exposure TSH W/RFLX FREE T4 Routine 09/26/2024 1: 05 PM EDT Routine general medical examination at a [facility] facility Type 2 diabetes mellitus without complication, without long-term current use of insulin ([facility]) Hand arthritis Essential hypertension, benign Mixed headache Left hip pain STD exposure HEMOGLOBIN GLYCOSYLATED A1C Routine 09/26/2024 1:05 PM EDT Routine general medical examination at a [facility] facility Type 2 diabetes mellitus without complication, without long-term current use of insulin ([facility]) Hand arthritis Essential hypertension, benign Mixed headache Left hip pain STD exposure MAMMO DIGITAL SCREEN SIERRA W CAD 3D Routine 11/12/2023 3:00 AM EST Breast cancer screening by mammogram PAP SMEAR W/HPV, ABSTRACTED Routine 03/24/2023 10:00 AM EDT MICROALBUMIN/CREATININ E RATIO, URINE, RANDOM Routine 03/08/2023 3:27 PM EDT Routine general medical examination at a [facility] facility Asthma-COPD overlap syndrome ([facility]) Essential hypertension, benign Moderate persistent asthma without complication Lower urinary tract symptoms (LUTS) HISTORIC COLONOSCOPY 02/10/2023 3:00 AM EDT from Last 3 Months or Most Recently Relevant to Health Maintenance Results * REFERRAL SCANNED DOCUMENT (10/26/2024 3:00 AM EST) Only the most recent of3 resultswithin the time period is included. 10/26/2024 3:00 AM EST us Salud Whittaker PA-C SCAN REFERRAL Final Result * RPR (DIAGNOSIS) WITH REFLEX TO TITER AND CONFIRMATORY TESTING (09/26/2024 1:05 PM EDT) Pathologist [facility] RPR (DX) W/REFL TITER AND CONFIRMATORY TESTING NON-REACT MARY LOU NON-REACT MARY LOU [employer] Comment: No laboratory evidence of syphilis. If recent exposure is suspected, submit a new sample in 2-4 weeks. Serum Blood / Unknown 09/26/2024 1 :05 PM EDT 09/26/2024 1:06 PM EDT Narrative [facility] - 10/04/2024 9:33 AM EST FASTING:NO Salud NG-C LAB - BLOOD DRAW Edited Resu lt - Final [facility] [address] [place] [address], [employer] [address] [address] * HEPATITIS C AB W/RFLX HCV RNA, QT, RT PCR (09/26/2024 1:05 PM EDT) Pathologist [facility] HEPATITIS C ANTIBODY NON-REACT MARY LOU NON-REACT MARY LOU [facility] Comment: HCV antibody was non-reactive. There is no laboratory evidence of HCV infection. In most cases, no further action is required. However, if recent HCV exposure is suspected, a test for HCV RNA (test code 78773) is suggested. For additional information please refer to http://education.[employer] [place]/faq/SVO78y0 (This link is being provided for informational/ educational purposes only.) Blood Blood / Unknown 09/26/2024 1 :05 PM EDT 09/26/2024 1:06 PM EDT Narrative [facility] - 10/04/2024 9:33 AM EST FASTING:NO Saludrosaura NG-C LAB - BLOOD DRAW Edited Resu lt - Final [facility] [address] [address], [employer] [address] [address] * (ABNORMAL) ??RHEUMATOID ARTHRITIS DIAGNOSTIC PANEL 1 (09/26/2024 1:05 PM EDT) RHEUMATOID FACTOR <10 <14 IU/mL [employer] CYCLIC CITRULLINATED PEPTIDE CCP AB IGG 29(H) 19 UNITS [employer] Comment: Reference Range Negative: ?<20 Weak Positive: ? 20-39 Moderate Positive: ?? 40-59 Strong Positive: ? >59 INTERPRETATION See Note [employer] Comment: Consistent with rheumatoid arthritis in a patient with polyarthritis. A positive anti-CCP result is frequently found in patients with early rheumatoid arthritis and may be associated with progression of joint destruction. Blood Blood / Unknown 09/26/2024 1 :05 PM EDT 09/26/2024 1:06 PM EDT Narrative [facility] - 10/04/2024 9:33 AM EST FASTING:NO Salud Whittaker PA-C LAB - BLOOD DRAW Final Resul t Performing Organization Address [facility] Co de Phone Number [facility] [address] [place] [address], [employer] [address] [address] * HIV 1/2 AG & AB W/RFLX (4TH GEN) (09/26/2024 1:05 PM EDT) Pathologist [facility] HIV AG/AB, 4TH GEN NON-REAC TIVE NON-REAC TIVE [employer] Comment: HIV-1 antigen and HIV-1/HIV-2 antibodies were not detected. There is no laboratory evidence of HIV infection. PLEASE NOTE: This information has been disclosed to you from records whose confidentiality may be protected by state law. ??If your state requires such protection, then the state law prohibits you from making any further disclosure of the information without the specific written consent of the person to whom it pertains, or as otherwise permitted by law. A general authorization for the release of medical or other information is NOT sufficient for this purpose. ?? For additional information please refer to http://[email or web address] [place]/faq/KYI083 (This link is being provided for informational/ educational purposes only.) The performance of this assay has not been clinically validated in patients less than 2 years old. Blood Blood / Unknown 09/26/2024 1 :05 PM EDT 09/26/2024 1:06 PM EDT Narrative [employer] [facility] - 10/04/2024 9:33 AM EST FASTING:NO Salud Whittaker PA-C LAB - BLOOD DRAW Final Resul t Performing Organization Address [facility] de Phone Number [email or web address] [address] [address], [employer] [address] [address] * C TRACHOMATIS/N GONORRHOEAE RNA,TMA (09/26/2024 1:05 PM EDT) Pathologist [facility] CHLAMYDIA TRACHOMATIS RNA, TMA NOT DETECTED NOT DETECTED [employer] [facility] NEISSERIA GONORRHOEAE RNA, TMA NOT DETECTED NOT DETECTED [employer] [facility] COMMENT [employer] [facility] Urine Urine specimen / Unknown 09/26/2024 1:05 PM EDT 09/26/2024 1:06 PM EDT Narrative [employer] [facility] - 10/04/2024 9:33 AM EST FASTING:NO The analytical performance characteristics of this assay, when used to test SurePath(TM) specimens have been determined by [employer]. The modifications have not been cleared or approved by the FDA. This assay has been validated pursuant to the CLIA regulations and is used for clinical purposes. For additional information, please refer to [email or web address] [place]/faq/OHE411 (This link is being provided for information/ educational purposes only.) Salud Whittaker PA-C LAB - NO BLOOD DRAW Edited R esult - Final Performing Organization Address [facility] Co de Phone Number [employer] [address] [address], [employer] [address] [address] * TSH W/RFLX FREE T4 (09/26/2024 1:05 PM EDT) Pathologist [facility] TSH W/REFLEX TO FT4 0.58 0.40 - 4.50 mIU/L [employer] [facility] Blood Blood / Unknown 09/26/2024 1 :05 PM EDT 09/26/2024 1:06 PM EDT Narrative [facility] - 10/04/2024 9:33 AM EST FASTING:NO us Salud Whittaker PA-C LAB - BLOOD DRAW Edited Resu lt - Final Performing Organization Address [facility] de Phone Number [employer] [facility] [address] [address], [employer] [address] [address] * HEPATITIS B SURFACE AG, EIA WITH REFLEX CONFIRM (09/26/2024 1:05 PM EDT) [facility] HEPATITIS B SURFACE ANTIGEN NON-REACT MARY LOU NON-REACT MARY LOU [employer] [facility] COMMENT [facility] [employer] [facility] Blood Blood / Unknown 09/26/2024 1 :05 PM EDT 09/26/2024 1:06 PM EDT Narrative [employer] [facility] - 10/04/2024 9:33 AM EST FASTING:NO For additional information, please refer to http://[email or web address] [place]/faq/CSA500 (This link is being provided for informational/ educational purposes only.) us Salud Whittaker PA-C LAB - BLOOD DRAW Edited Resu lt - Final Performing Organization Address [facility] Co de Phone Number [employer] [facility] [address] [address], [employer] [address] [address] * LYME DISEASE, IGG/IGM AB, WESTERN BLOT (09/26/2024 1:05 PM EDT) LYME DISEASE AB (IGG) WB NEGATIVE NEGATIVE [facility] 18 KD (IGG) BAND NON-REACTIVE [facility] 23 KD (IGG) BAND NON-REACTIVE [facility] 28 KD (IGG) BAND NON-REACTIVE [facility] 30 KD (IGG) BAND NON-REACTIVE [facility] 39 KD (IGG) BAND NON-REACTIVE [facility] 41 KD (IGG) BAND NON-REACTIVE [facility] 45 KD (IGG) BAND NON-REACTIVE [facility] 58 KD (IGG) BAND NON-REACTIVE [facility] 66 KD (IGG) BAND NON-REACTIVE [facility] 93 KD (IGG) BAND NON-REACTIVE [facility] LYME DISEASE AB (IGM) WB NEGATIVE NEGATIVE [facility] 23 KD (IGM) BAND NON-REACTIVE [facility] 39 KD (IGM) BAND NON-REACTIVE [facility] 41 KD (IGM) BAND NON-REACTIVE [facility] COMMENT [employer] [facility] Blood Blood / Unknown 09/26/2024 1 :05 PM EDT 09/26/2024 1:06 PM EDT Narrative [employer] [facility] - 10/04/2024 9:33 AM EST FASTING:NO Lyme immunoblot testing should only be performed on samples from patients who have had a Positive or Equivocal result in a screening assay. ?? As per CDC criteria, a Lyme disease IgG Immunoblot must show reactivity to at least 5 of 10 specific borrelial proteins to be considered positive; similarly, a positive Lyme disease IgM immunoblot requires reactivity to 2 of 3 specific borrelial proteins. Although considered negative, IgG reactivity to fewer specific borrelial proteins or IgM reactivity to only 1 protein may indicate recent B. burgdorferi infection and warrant testing of a later sample. A positive IgM but negative IgG result obtained more than a month after onset of symptoms likely represents a false- positive IgM result rather than acute Lyme disease. In rare instances, Lyme disease immunoblot reactivity may represent antibodies induced by exposure to other spirochetes. Salud Whittaker PA-C LAB - BLOOD DRAW Edited Resu lt - Final [facility] [address] [address], [facility] [address] [place] [address] * (ABNORMAL) VITAMIN B12 & FOLATE (09/26/2024 1:05 PM EDT) Pathologist [facility] VITAMIN B12 >2000(H) 200 - 1100 pg/mL [employer] FOLATE, SERUM 17.0 5.5 ng/mL [employer] Comment: ? Reference Range ? Low: ? <3.4 ? Borderline: ?3.4-5.4 ? Normal: ?>5.4 Blood Blood / Unknown 09/26/2024 1 :05 PM EDT 09/26/2024 1:06 PM EDT Narrative [facility] - 10/04/2024 9:33 AM EST FASTING:NO us Salud Whittaker PA-C LAB - BLOOD DRAW Edited Resu lt - Final [facility] [address] [address], [employer] [address] [address] * BLOOD COUNT COMPLETE AUTO&AUTO DIFRNTL WBC (09/26/2024 1:05 PM EDT) Pathologist [facility] WHITE BLOOD CELL COUNT 6.9 3.8 - 10.8 Thousand/ uL [employer] RED BLOOD CELL COUNT 4.52 3.80 - 5.10 Million/u L [employer] HEMOGLOBIN 12.9 11.7 - 15.5 g/dL [employer] HEMATOCRIT 39.8 35.0 - 45.0 % [employer] MCV 88.1 80.0 - 100.0 fL [employer] MCH 28.5 27.0 - 33.0 pg [employer] MCHC 32.4 32.0 - 36.0 g/dL [employer] Comment: For adults, a slight decrease in the calculated MCHC value (in the range of 30 to 32 g/dL) is most likely not clinically significant; however, it should be interpreted with caution in correlation with other red cell parameters and the patient's clinical condition. RDW 13.1 11.0 - 15.0 % [employer] PLATELET COUNT 361 140 - 400 Thousand/ uL [employer] MPV 9.2 7.5 - 12.5 fL [employer] ABSOLUTE NEUTROPHILS 4,016 1,500 - 7,800 cells/uL [employer] ABSOLUTE LYMPHOCYTES 1,973 850 - 3,900 cells/uL [employer] ABSOLUTE MONOCYTES 697 200 - 950 cells/uL [employer] ABSOLUTE EOSINOPHILS 131 15 - 500 cells/uL [employer] ABSOLUTE BASOPHILS 83 0 - 200 cells/uL [employer] NEUTROPHILS PCT 58.2 % [facility] LYMPHOCYTES 28.6 % [employer] MONOCYTES 10.1 % [employer] DI[facility] [employer] EOSINOPHILS 1.9 % [facility] [employer] BASOPHILS 1.2 % [employer] Blood Blood / Unknown 09/26/2024 1 :05 PM EDT 09/26/2024 1:06 PM EDT Narrative [facility] - 10/04/2024 9:33 AM EST FASTING:NO Salud Whittaker PA-C LAB - BLOOD DRAW Edited Resu lt - Final [facility] [address] [address], [employer] [address] [place] [phone] * ASSAY OF BLOOD/URIC ACID (09/26/2024 1:05 PM EDT) URIC ACID 3.5 2.5 - 7.0 mg/dL [employer] Comment: Therapeutic target for gout patients: <6.0 mg/dL ?? Blood Blood / Unknown 09/26/2024 1 :05 PM EDT 09/26/2024 1:06 PM EDT Narrative [facility] - 10/04/2024 9:33 AM EST FASTING:NO Salud Whittaker PA-C LAB - BLOOD DRAW Edited [facility] Performing Organization Address [facility] Co de Phone Number [facility] [address] [place] [address], [employer] [address] [address] * ASSAY OF MAGNESIUM (09/26/2024 1:05 PM EDT) Pathologist [facility] MAGNESIUM 2.1 1.5 - 2.5 mg/dL [employer] Blood Blood / Unknown 09/26/2024 1 :05 PM EDT 09/26/2024 1:06 PM EDT Narrative [facility] - 10/04/2024 9:33 AM EST FASTING:NO Salud Whittaker PA-C LAB - BLOOD DRAW Edited [facility] Performing Organization Address [facility] de Phone Number [email or web address] [address] [address], [employer] [address] [address] * HEMOGLOBIN GLYCOSYLATED A1C (09/26/2024 1:05 PM EDT) Pathologist [facility] HEMOGLOBIN A1C 5.4 <5.7 % of total Hgb [employer] Comment: For the purpose of screening for the presence of diabetes: <5.7% ? Consistent with the absence of diabetes 5.7-6.4% ?Consistent with increased risk for diabetes ?(prediabetes) > or =6.5% ??Consistent with diabetes This assay result is consistent with a decreased risk of diabetes. Currently, no consensus exists regarding use of hemoglobin A1c for diagnosis of diabetes in children. According to [place] Diabetes Association (ADA) guidelines, hemoglobin A1c <7.0% represents optimal control in non- diabetic patients. Different metrics may apply to specific patient populations. Standards of Medical Care in Diabetes(ADA). ?? Blood Blood / Unknown 09/26/2024 1 :05 PM EDT 09/26/2024 1:06 PM EDT Narrative [employer] [facility] - 10/04/2024 9:33 AM EST FASTING:NO us Salud Whittaker PA-C LAB - BLOOD DRAW Edited Resu lt - Final [employer] [address] [address], [employer] [address] [address] * (ABNORMAL) LIPID PANEL (09/26/2024 1:05 PM EDT) CHOLESTEROL, TOTAL 208(H) <200 mg/dL [employer] [facility] HDL CHOLESTEROL 90 > OR = 50 mg/dL [employer] [facility] TRIGLYCERIDES 117 <150 mg/dL [employer] [facility] LDL-CHOLESTEROL 97 99 mg/dL (calc) [employer] [facility] Comment: Reference range: <100 Desirable range <100 mg/dL for primary prevention; ?? <70 mg/dL for patients with CHD or diabetic patients with > or = 2 CHD risk factors. LDL-C is now calculated using the Juno-Zazueta calculation, which is a validated novel method providing better accuracy than the Friedewald equation in the estimation of LDL-C. Juno SS et al. OMAR. 2013;310(19): 6616-9553 (http://education.[employer]/faq/PWV737) CHOL/HDLC RATIO 2.3 <5.0 (calc) [facility] NON-HDL CHOLESTEROL 118 <130 mg/dL (calc) [employer] [facility] Comment: For patients with diabetes plus 1 major ASCVD risk factor, treating to a non-HDL-C goal of <100 mg/dL (LDL-C of <70 mg/dL) is considered a therapeutic option. Blood Blood / Unknown 09/26/2024 1 :05 PM EDT 09/26/2024 1:06 PM EDT Narrative [employer] [facility] - 10/04/2024 9:33 AM EST FASTING:NO us Salud Whittaker PA-C LAB - BLOOD DRAW Final Resul t [employer] [facility] [address] [address], [employer] [facility] [address] [place] [address] * (ABNORMAL) COMPREHENSIVE METABOLIC PANEL (09/26/2024 1:05 PM EDT) GLUCOSE 72 65 - 139 mg/dL [employer] Comment: ?Non-fasting reference interval UREA NITROGEN (BUN) 11 7 - 25 mg/dL [employer] [facility] CREATININE (blood) 0.53 0.50 - 1.03 mg/dL [employer] EGFR 107 > OR = 60 mL/min/1. 73m2 [facility] BUN/CREATININE RATIO SEE NOTE: [employer] Comment: ?? Not Reported: BUN and Creatinine are within ?? reference range. ? SODIUM 138 135 - 146 mmol/L [employer] [facility] POTASSIUM 4.5 3.5 - 5.3 mmol/L [employer] [facility] CHLORIDE 103 98 - 110 mmol/L [employer] CARBON DIOXIDE 27 20 - 32 mmol/L [employer] [facility] CALCIUM 9.4 8.6 - 10.4 mg/dL [employer] PROTEIN, TOTAL 6.6 6.1 - 8.1 g/dL [employer] [facility] ALBUMIN 4.0 3.6 - 5.1 g/dL [employer] [facility] GLOBULIN 2.6 1.9 - 3.7 g/dL (calc) [employer] [facility] ALBUMIN/GLOBULI N RATIO 1.5 1.0 - 2.5 (calc) [employer] [facility] BILIRUBIN, TOTAL 0.2 0.2 - 1.2 mg/dL [employer] ALKALINE PHOSPHATASE 183(H) 37 - 153 U/L [employer] [facility] AST 17 10 - 35 U/L [employer] [facility] ALT 15 6 - 29 U/L [employer] Blood Blood / Unknown 09/26/2024 1 :05 PM EDT 09/26/2024 1:06 PM EDT Narrative [facility] - 10/04/2024 9:33 AM EST FASTING:NO us Salud Whittaker PA-C LAB - BLOOD DRAW Edited Resu lt - Final Performing Organization Address City/[facility]/ZIP Co de Phone Number [facility] [address] [address], [facility] [address] [place] [address] * MAMMO DIGITAL SCREEN [facility] W CAD 3D (11/12/2023 3:00 AM EST) 11/12/2023 3:00 AM EST Salud Whittaker PA-C IMG MAMMO Edited Resul t - Final * PAP SMEAR W/HPV (03/24/2023 10:00 AM EDT) PAP SMEAR INTERPRETATION NORMAL NORMAL [facility] HPV (HUMAN PAPILLOMA) NEGATIVE NEGATIVE [facility] HPV TYPE 16 NEGATIVE NEGATIVE [facility] HPV TYPE 18 NEGATIVE NEGATIVE [facility] Swab 03/24/2023 10:0 0 AM EDT [facility] - 05/24/2023 10:31 AM EDT Negative for squamous intraepithelial lesion and malignancy High risk HPV assay: Negative Provider [facility] - NO BLOOD DRAW Final Result Performing Organization Address City/[facility]/ZIP Co de Phone Number [facility] [address] [place] [address], * MICROALBUMIN/CREATININE RATIO, URINE, RANDOM (03/08/2023 3:27 PM EDT) CREATININE, RANDOM URINE 122 20 - 275 mg/dL [facility] MICROALBUMIN 0.6 mg/dL [employer] [facility] [employer] [employer] [facility] Comment: Reference Range Not established MICROALBUMIN/CREA TININE RATIO, RANDOM URINE 5 <30 mcg/mg creat [facility] [employer] [facility] Comment: The ADA defines abnormalities in albumin excretion as follows: Albuminuria Category ?Result (mcg/mg creatinine) Normal to Mildly increased ?? <30 Moderately increased ? 30-299 Severely increased ? > OR = 300 The ADA recommends that at least two of three specimens collected within a 3-6 month period be abnormal before considering a patient to be within a diagnostic category. Urine Urine specimen / Unknown 03/08/2023 3:27 PM EDT 03/08/2023 3:28 PM EDT Salud Whittaker PA-C LAB - NO BLOOD DRAW Final Re sult [facility] [address] [address], [facility] [address] [place] [address] * HISTORIC COLONOSCOPY (02/10/2023 3:00 AM EDT) 02/10/2023 3:00 AM EDT Salud Whittaker PA-C PROCEDURES Final Result from Last 3 Months or Most Recently Relevant to Health Maintenance Insurance [id number] [facility] Care Teams Security Expert Relationship Specialty Start Date End Date Salud Whittaker PA-C [address] [place] [id number] PCP - General Internal Medicine 03/15/19
--- OUTSIDE RECORDS SUMMARY | 2024-12-25 06:24 | XMS_ITS | Clinical Summary ---
Author Organization [address] [facility] Address [address] [place] [address] Phone Care Team Providers Care Drop Wire Aliner Name Role Phone Salud Whittaker Primary Care Provider [phone] Allergies Active Allergy Reactions Criticality Noted Date Comments Amitriptyline Itching 03/19/2019 Dulaglutide 05/07/2021 No weight loss Hydromorphone Itching 03/19/2019 Orphenadrine Itching 03/19/2019 Topiramate 08/15/2023 Other reaction(s): Other (See Comments) Medications Medication Sig Dispensed Refills Start Date End Date Status albuterol HFA (Ventolin HFA) 90 mcg/actuation inhaler INHALE 2 PUFFS INTO THE LUNGS 4 TIMES DAILY NEEDED FOR COUGH OR WHEEZING. 08/01/2024 Active cetirizine (ZyrTEC) 10 mg tablet TOME EDENILSON TABLETA TODOS LOS MORGAN 07/05/2024 Active fluticasone propionate (FLONASE) 50 mcg/actuation nasal spray 2 Sprays by Nasal route daily. 05/04/2024 Active montelukast (SINGULAIR) 10 mg tablet TOME EDENILSON TABLETA TODOS LOS MORGAN AL ACOSTARSE 04/04/2024 Active fluticasone-umeclid inium-vilanterol (Trelegy Ellipta) 100-62.5-25 mcg inhaler Inhale 1 Puff into the lungs daily. Rinse mouth after administration. 04/04/2024 Active gabapentin (NEURONTIN) 100 mg capsule Take 1 Capsule by mouth. 12/19/2023 Active diclofenac (VOLTAREN) 1 % topical gel Apply 2gm qhs to shoulder 08/05/2023 Active ipratropium-albuter oL (DUONEB) 0.5-2.5 mg/3 mL nebulizer solution Inhale 3 mL into the lungs 2 times daily. 02/02/2024 Active meloxicam (MOBIC) 15 mg tablet Take 1 tablet (15 mg total) by mouth 1 (one) time each day. 08/15/2023 Active famotidine (PEPCID) 20 mg tablet Take 1 Tablet by mouth 2 times daily as needed for Heartburn. 06/23/2023 Active FREESTYLE LANCETS MISC 1 Strip 3 times daily. 11/23/2020 Active blood sugar diagnostic (FreeStyle Lite Strips) test strip TO TEST BLOOD GLUCOSE THREE TIMES DAILY 12/28/2020 Active dulaglutide (Trulicity) 0.75 mg/0.5 mL pen injector injection INJECT 1 PEN ONCE WEEKLY 05/08/2022 Active cyanocobalamin, vitamin B-12, 2,500 mcg tablet, sublingual DISSOLVE 1 TABLET POR V A ORAL TODOS LOS D 08/12/2021 Active alcohol swabs pads, medicated USE SEG N LO INDICADO HEMALATHA VECES AL D A 07/31/2021 Active lisinopriL (PRINIVIL,ZESTRIL) 5 mg tablet Take 1 tablet (5 mg total) by mouth 1 (one) time each day. Active phenytoin (DILANTIN) 100 mg ER capsule Take by mouth 2 times daily. Active OXcarbazepine (TRILEPTAL) 600 mg tablet Take 600 mg by mouth 2 times daily. Active butalbital-acetamin vyyow-zkfctzqj-irwp ine (FIORICET WITH CODEINE) 04-022-11-30 mg per capsule Take 1 capsule by mouth every 4 hours as needed. Active aluminum-magnesium hydroxide-simethico ne (Delmi-Lanta) 200-200-20 mg/5 mL suspension TAKE 15 ML BY MOUTH 4 TIMES DAILY NEEDED FOR OTHER. 769 mL 11 10/29/2024 Active pantoprazole (PROTONIX) 20 mg EC tablet TAKE 2 TABLETS BY MOUTH EVERY MORNING ON EMPTY STOMACH, WAIT 30MIN THEN EAT TO ACTIVATE THE MED 180 tablet 1 11/16/2024 Active Active Problems Problem Noted Date Diagnosed Date Asthma exacerbation 12/06/2023 Overview (09/12/2024): Last Assessment & Plan: Efe is a 58-year-old woman with 1 week of runny nose, severe wheezing and shortness of breath. After examining her I agree that she most likely has a episode of asthma exacerbation. This may have been precipitated by a virus including RSV and/or COVID. I will do the followin. Prednisone 40 mg p.o. every day for 5 days 2. Azithromycin for 5 days 3. Robitussin orally dwkq-ant-xhqliog for cough 4. Continue only with Symbicort 160 mcg 2 puffs twice a day. Breo has been discontinued 5. Advised that if she does improve in 3 to 5 days she will need to be going to the ED to be tested or urgent care. Follow-up with Regina Anemia 07/31/2022 Bipolar disorder 07/31/2022 Depression 07/31/2022 Cervical spondylosis 07/31/2022 Constipation 07/31/2022 Generalized anxiety disorder 07/31/2022 HTN (hypertension) 07/31/2022 Insomnia disorder 07/31/2022 Levoscoliosis of thoracic spine 07/31/2022 Migraines 07/31/2022 Mild intermittent asthma, uncomplicated 07/31/20 22 Other seasonal allergic rhinitis 07/31/2022 Seizure 07/31/2022 Abnormality of lung on CXR 08/21/2019 Asthma-COPD overlap syndrome 08/21/2019 Centrilobular emphysema 08/21/2019 Moderate persistent asthma without complication 08/21/2019 Encounters Date Type Department Care Team Description 10/26/2024 10:30 AM EST Office Visit Pulmonolgy - [address] [place] [address] Salud Mcgill NP [place] (Primary Dx); Witnessed episode of apnea; Asthma-COPD overlap syndrome (CMS/HCC); Centrilobular emphysema (CMS/HCC); Moderate persistent asthma without complication; Insomnia, unspecified type; Class 1 obesity without serious comorbidity in adult, unspecified BMI, unspecified obesity type from Last 3 Months Immunizations Name Administration Dates Next Due Influenza Quadravalent, MDCK , 0.5ml, preservative free (Flucelvax) 6mo and older 08/21/2019 Pfizer SARS-CoV-2 COVID-19, mRNA, LNP-S, preservative free 04/30/2021,04/09/2021 Pneumococcal conjugate 13 va lent (Prevnar 13, PCV13) 2mo and older 08/21/2019 Surgical History Surgery Date Site/Laterality Comments GASTRIC BYPASS N/A PROCEDURE: AK GASTRIC RSTCV W/BYP W/SM INT RCNSTJ LIMIT ABSRPJ KNEE SURGERY Bilateral PROCEDURE: HISTORICAL KNEE SURGERY KIDNEY STONE SURGERY PROCEDURE: AK NEPHROLITHOTOMY REMOVAL CALCULUS BREAST REDUCTION PROCEDURE: AK BREAST REDUCTION COLONOSCOPY PROCEDURE: HISTORICAL COLONOSCOPY Medical History Medical History Date Comments Bipolar disorder (CMS/HCC) DX:Bi polar disorder (HCC) Mild intermittent asthma, uncomplicated DX:Mild intermittent asthma, uncomplicated HTN (hypertension) DX:HTN (hyper tension) Seizure (CMS/HCC) DX:Seizure (HC C); COMMENT: Hx of Epilepsy. Sees Migraines DX:Migraines Hx of smoking DX:Hx of smoking Hx of multiple pulmonary nodules 2018 DX:Hx of multiple pulmonary nodules Anemia DX:Anemia Insomnia disorder DX:Insomnia di sorder Constipation DX:Constipation Depression DX:Depression Levoscoliosis of thoracic spine DX:Levoscoliosis of thoracic spine Cervical spondylosis DX:Cervical spondylosis Other seasonal allergic rhinitis DX:Other seasonal allergic rhinitis Osteoporosis DX:Osteoporosis H/O: facial fractures DX:H/O: fa cial fractures Generalized anxiety disorder DX: Generalized anxiety disorder Obesity DX:Obesity; COMM ENT: s/p bariatric surgery Diabetes mellitus type 2, co ntrolled, with complications (CMS/HCC) DX:Diabetes mellitus type 2, controlled, with complications (HCC) Esophageal reflux DX:Esophageal reflux Family History Medical History Relation Name Comments Other cancer Aunt 1 found metastati c, unknown primary Other cancer Aunt 2 skin Stomach cancer Mother Other cancer Paternal Grandmother found m etastatic, unknown primary Lung cancer Neg Hx Relation Name Status Comments Aunt 1 Alive Aunt 2 Alive Mother Paternal Grandmother Social History Tobacco Use Types Packs/Day Years Used Date Smoking Tobacco: Former Cigarettes 1.5 39.4 0 1982 - 04/23/2022 Smokeless Tobacco: Never Alcohol Use Standard Drinks/Week Comments No 0 (1 standard drink = 0.6 oz pur e alcohol) Sex and Gender Information Value Date Recorded Sex Assigned at Not on file Gender Identity Not on file Sexual Orientation Not on file Job Start Date Occupation Industry Not on file Not on file Not on file Obstetrics History Last Filed Vital Signs Vital Sign Reading Time Taken Comments Blood Pressure 126/70 10/26/2024 10:30 AM EST Pulse 86 10/26/2024 10:30 AM EST Temperature 36.3 ??C (97.4 ??F) 10/26/2024 10:[address] Respiratory Rate - - Oxygen Saturation 98% 10/26/2024 10:30 AM EST Inhaled Oxygen Concentration - - Weight 81.6 kg (180 lb) 10/26/2024 10:30 AM EST Height 162.6 cm (5' 4 ) 10/26/2024 10:30 AM EST Body Mass Index 30.9 10/26/2024 10:30 AM EST Plan of Treatment Upcoming Encounters Date Type Department Care Team (Late st Contact Info) Description 02/25/2025 2:00 PM EDT Office Visit Pulmonolgy - [place] [address] [facility] [address] [place] [phone] Salud Mcgill NP [address] [facility] [address] [place] [address] Health Maintenance Due Date Last Done Comments Diabetes: Annual Foot Exam 1975 Diabetes: Annual Retina Eye Exam 1975 Social Influencers of Health Screening 11/06/2022 DTaP,Tdap,and Td Vaccines (2 - Td or Tdap) 07/02/2023 07/02/2013 COVID-19 Vaccine ( season) 2024 04/01/2022, 04/30/2021, 04/09/2021 Influenza Vaccine (#1) 2024 , 08/21/2019, 09/15/2015, Additional history exists Diabetes: Annual Urine Albumin-Creatinine Ratio (uACR) 10/26/2024 03/08/2023, 03/08/2023 Depression Screening 12/19/2024 12/19/2023 Diabetes: Blood Sugar Control Test (HGBA1C) 03/27/2025 09/26/2024, 11/04/2023 Lung Cancer Screening (Low Dose CT) 04/17/2025 04/17/2024, 04/16/2024, 04/08/2023, Additional history exists Diabetes: Annual GFR (Glomerular Filtration Rate) 09/26/2025 09/26/2024, 11/04/2023 Hypertension/CHF/CAD Annual BMP Blood Test 09/26/2025 09/26/2024, 11/04/2023 Breast Cancer Screening 11/12/2025 11/12/2023, 08/08 Cervical Cancer Screening: HPV 03/24/2028 03/24/2023 Cholesterol Screening (Lipid Panel) 09/26/2029 09/26/2024, 09/26/2024, 11/04/2023, Additional history exists Pneumococcal Vaccine: Pediatrics (0 to 5 Years) and At-Risk Patients (6 to 64 Years) (3 of 3 - PPSV23 or PCV20) 2030 08/21/2019, 02/11/2011 Colorectal Cancer Screening: Colonoscopy 02/10/2033 02/10/2023 RSV Immunization Patients 60+ Years Old (1 - 1-dose 75+ series) 2040 Hepatitis A Vaccines Aged Out 11/13/2004, 05/15/20 04 No longer eligible based on patient's age to complete this topic Hepatitis B Vaccines Completed 11/13/2004, 06/15/2004, 05/15/2004 HIV Screening Completed 08/26/2020 Zoster Vaccines Completed 08/05/2021, 0711/2020, 05/17/2018 Hepatitis C Screening Completed 09/26/2024, 020 HIB Vaccines Aged Out No longer eligi ble based on patient's age to complete this topic HPV Vaccines Aged Out No longer eligi ble based on patient's age to complete this topic IPV Vaccines Aged Out No longer eligi ble based on patient's age to complete this topic MMR Vaccines Aged Out No longer eligi ble based on patient's age to complete this topic Meningococcal ACWY Vaccine Aged Out N o longer eligible based on patient's age to complete this topic RSV Immunization Patients Under 20 months Aged Out No longer eligible based on patient's age to complete this topic Varicella Vaccines Aged Out No longer eligible based on patient's age to complete this topic Procedures Procedure Name Priority Date/Time Associated Diagnosis Comments CT LUNG SCREENING LOW DOSE Routine 04/17/2024 4:53 PM EDT Encounter for screening for malignant neoplasm of respiratory organs ANNUAL BMP BLOOD TEST Routine 11/04/2023 HEMOGLOBIN A1C Routine 11/04/2023 LIPID PANEL Routine 11/04/2023 HPV Routine 03/24/2023 URINE ALBUMIN CREATININE RATIO Routine 03/08/2023 COLONOSCOPY Routine 02/10/2023 HEPATITIS C SCREENING Routine 08/26/2020 HIV SCREENING Routine 08/26/2020 DARIEL SCREENING DIGITAL Routine 08/08/2019 5:14 PM EDT Encounter for screening mammogram for malignant neoplasm of breast from Last 3 Months or Most Recently Relevant to Health Maintenance Results * CT LUNG SCREENING LOW DOSE (04/17/2024 4:53 PM EDT) Anatomical Region Laterality Modality Computed Tomogra phy 04/16/2024 1:57 PM EDT Narrative 04/17/2024 4:53 PM EDT [facility] Diagnostic Imaging Department [address] [place] [address] Patient: ??EFE PIERRE ?/Age/Sex: 1965 - 58 - F Unit#: ??[id number] ? Location/Status: ??SPDICATLS/REG CLI ? Mnemonic/Ordering Site: ??CTLUNGLD/SPCT Ordering Physician: ??FEDE MONTZE MD CT Lung Screening Low Dose - 04/16/24 - 1404 Report Status:Signed PROCEDURE: CT chest lung cancer screening low dose examination. INDICATION: CT lung screening. TECHNIQUE: Chest CT without intravenous contrast was performed. ??Low-dose examination was performed. ??Reformatted images were evaluated. DOSE: CTDIvol: 4.8mGy. ??Total exam DLP: 158.3mGy-cm COMPARISON: CT chest March 2023 FINDINGS: NODULES: Small nodule in the periphery of the left lower lobe is stable. ??No new nodules are identified. LUNGS: Minimal emphysematous changes. OTHER: Limited views of the upper abdomen appear normal. ??Mild degenerative changes are noted in the thoracic spine. ??Mediastinum appears within normal limits. ??No significant lymphadenopathy. ??Minimal coronary atherosclerotic disease. IMPRESSION: Stable examination with mild emphysematous disease. Lung-RADS 2. ??Follow up examination is advised in one year. Dictating Physician: ??KAREY JAIN MD Electronically Signed by: ??KAREY JAIN MD Dic Date/Time: ??04/17/24 1647 Sign date/Time: ??04/17/24 1653 Procedure Note Karey Jain MD - 07/16/2024 [facility] Diagnostic Imaging Department [address] [place], [place] [id number] Patient: EFE PIERRE/Age/Sex: 1965 - 58 - F Unit#: [id number] Location/Status: SPDICATLS/REG CLI Mnemonic/Ordering Site: [facility] Ordering Physician: FEDE MONTEZ MD CT Lung Screening Low Dose - 04/16/24 - 1404 Report Status:Signed PROCEDURE: CT chest lung cancer screening low dose examination. INDICATION: CT lung screening. TECHNIQUE: Chest CT without intravenous contrast was performed.Low-dose examination was performed. Reformatted images were evaluated. DOSE: CTDIvol: 4.8mGy. Total exam DLP: 158.3mGy-cm COMPARISON: CT chest March 2023 FINDINGS: NODULES: Small nodule in the periphery of the left lower lobe is stable.No new nodules are identified. LUNGS: Minimal emphysematous changes. OTHER: Limited views of the upper abdomen appear normal. Milddegenerative changes are noted in the thoracic spine. Mediastinum appears withinnormal limits. No significant lymphadenopathy. Minimal coronaryatherosclerotic disease. IMPRESSION: Stable examination with mild emphysematous disease. Lung-RADS 2. Follow up examination is advised in one year. Dictating Physician: KAREY JAIN MD Electronically Signed by: KAREY JAIN MD Dic Date/Time: 04/17/24 1647 Sign date/Time: 04/17/24 1653 Fede Montez MD IMG CT PROCEDURES * Annual BMP Blood Test (11/04/2023) Annual BMP Blood Test abstracted Historical Provider [facility] E * Hemoglobin A1c (11/04/2023) Hemoglobin A1C 0.0 % Comment:abstracted, no inter pretation Blood Venous blood specimen / Unknown Historical Provider LAB BLOOD ORDERAB LES * Cervical Cancer Screening: HPV (03/24/2023) [facility] Cervical Cancer Screening: HPV abstracted, no interpretation Historical Provider [facility] NAYELY E * Urine Albumin Creatinine Ratio (03/08/2023) [facility] Urine Albumin Creatinine Ratio abstracted Historical Provider [facility] * Colonoscopy (02/10/2023) [facility] Colonoscopy abstracted, no interpretation Anatomical Region Laterality Modality Other Historical Provider [facility] * HIV Screening (08/26/2020) [facility] HIV Screening abstracted Historical Provider [facility] * Hepatitis C Screening (08/26/2020) [facility] Hepatitis C Screening abstracted Historical Provider [facility] * DARIEL SCREENING DIGITAL (08/08/2019 5:14 PM EDT) Anatomical Region Laterality Modality Mammography 08/08/2019 1:51 PM EDT Narrative 08/08/2019 5:14 PM EDT [facility] Diagnostic Imaging Department [address] [place], [place] [id number] Patient: ??EFE PIERRE ?/Age/Sex: 1965 - 53 - F Unit#: ??[id number] ? Location/Status: ??SPDIMAM/REG CLI ? Mnemonic/Ordering Site: ??DIGSC/SPMAM Ordering Physician: ??MARIETTA HERNANDEZ APRN Dariel Screening Digital - 08/08/19 - 1421 EXAM: [facility] Screening Digital EXAM DATE AND TIME: 08/08/2019 2:22 PM HISTORY: ??Screening. Reduction mammoplasty in 2007. Maternal grandmother had breast carcinoma. COMPARISON: ??08/29/14, 05/24/13, 04/30/11 TECHNIQUE: CC and MLO views of both breasts were obtained using full field digital mammography. Bilateral digital breast tomosynthesis was performed in the MLO projection. Computer aided detection with the [employer] 7.2-H was employed. TISSUE DENSITY: b. There are scattered areas of fibroglandular density. FINDINGS: Reduction mammoplasty sequelae are again noted. No suspicious masses, grouped microcalcifications, or areas of architectural distortion are seen. Several benign rim calcifications are again seen. Few scattered microcalcifications are without significant change. The skin and vascularity are unremarkable. IMPRESSION: Stable mammographic appearance of the breasts. ??No evidence of malignancy is seen. A negative mammogram in the presence of a clinically suspicious palpable abnormality does not preclude the possibility of malignancy or alter the indications for biopsy. BI-RADS: ??Category 2: Benign RECOMMENDATION(S): 1: Routine screening mammogram BILATERAL in 1 year. [id number], [id number] 3342F, 7025F Dictating Physician: ??AMALIA BALLARD MD Electronically Signed by: ??AMALIA BALLARD MD Dic Date/Time: ??08/08/19 171 Sign date/Time: ??08/08/19 171 Procedure Note Amalia Ballard - 11/17/2022 [facility] Diagnostic Imaging Department [address] [place] [id number] Patient: SHYAM BERNARDEFEMILLICENT López./Age/Sex: 1965 - 53 - F Unit#: [id number] Location/Status: SPDIMAM/REG CLI Mnemonic/Ordering Site: [facility] Ordering Physician: MARIETTA HERNANDEZ APRN [facility] Screening Digital - 08/08/19 - 1421 EXAM: [facility] Screening Digital EXAM DATE AND TIME: 08/08/2019 2:22 PM HISTORY: Screening. Reduction mammoplasty in 2007. Maternal grandmotherhad breast carcinoma. COMPARISON: 08/29/14, 05/24/13, 04/30/11 TECHNIQUE: CC and MLO views of both breasts were obtained using fullfield digital mammography. Bilateral digital breast tomosynthesis was performedin the MLO projection. Computer aided detection with the [employer] 7.2-Riskonnectas employed. TISSUE DENSITY: b. There are scattered areas of fibroglandular density. FINDINGS: Reduction mammoplasty sequelae are again noted. No suspicious masses, grouped microcalcifications, or areas ofarchitectural distortion are seen. Several benign rim calcifications are again seen.Few scattered microcalcifications are without significant change. The skinand vascularity are unremarkable. IMPRESSION: Stable mammographic appearance of the breasts. No evidence of malignancyis seen. A negative mammogram in the presence of a clinically suspicious palpable abnormality does not preclude the possibility of malignancy or alter the indications for biopsy. BI-RADS: Category 2: Benign RECOMMENDATION(S): 1: Routine screening mammogram BILATERAL in 1 year. [id number], [id number] 3342F, 7025F Dictating Physician: AMALIA BALLARD MD Electronically Signed by: AMALIA BALLARD MD Dic Date/Time: 09/11/19 1713 Sign date/Time: 08/08/191713 Marietta Hernandez APN IMG BI PROCEDURE S from Last 3 Months or Most Recently Relevant to Health Maintenance Care Teams Drop Wire Aliner Relationship Specialty Start Date End Date Salud Whittaker PA [address] [place] [address] PCP - General Internal Medicine 06/05/21
== END 2024-12-25 06:16 | disposition home or self-care (01) ==
LOC: CF 06:15
PROVIDERS: Visit Provider Anesthesiology
DX: M47.812 Spondylosis without myelopathy or radiculopathy, cervical region (principal); M50.323 Other cervical disc degeneration at C6-C7 level; G89.4 Chronic pain syndrome
CPT/HCPCS: 64555; J2003

== ENCOUNTER 2024-12-25 10:03 | Outpatient (AMB) | payer MEDICAID, SELFPAY ==
[2024-12-25 10:17] VITALS: BP 118/91; PULSE 75; RESP 16; O2SAT 98
--- NOTE | 2024-12-25 10:17 | MHC.OFFVIS ---
Vital Signs 12/25/24 10:17 12/25/24 11:14 BP 118/91 H 123/81 Blood Pressure Location Rt brachial Rt brachial Position Sitting Sitting Respiration 16 16 Pulse 75 73 Pulse Source Pulse Oximeter Pulse Oximeter Pulse Oximetry (%) 98 97 Oxygen Delivery Method Room Air Room Air Intake Visit Reasons: RIGHT C4 (POSS C5, POSS C6) SPRINT PNS TRIAL [employer] Services: [employer] Offered & Declined [employer] Name: Prefers to translate Allergies No Known Allergies Allergy (Verified 12/25/24 10:17) Medication List - Last Reconciled 12/25/24 by Gudelia Stevens LPN albuterol sulfate 90 mcg/actuation (Ventolin HFA) 2 puffs inhalation QID PRN drjdixvwyb-imcteuzipoirv-dqtr 50-325-40 mg 1 tab PO DAILY PRN cyanocobalamin (vitamin B-12) (Vitamin B-12) 2,500 mcg PO DAILY dulaglutide (Trulicity) mg subcut QWEEK famotidine 20 mg PO BID PRN ipratropium-albuterol 0.5 mg-3 mg(2.5 mg base)/3 mL mL inhalation BID meloxicam 15 mg PO DAILY mirtazapine 7.5 mg PO BEDTIME montelukast 10 mg PO BEDTIME oxcarbazepine 600 mg PO BID pantoprazole 40 mg PO QAM phenytoin sodium extended 200 mg PO sertraline 100 mg PO QAM [facility] Social History (Updated 03/29/24 @ 15:24 by Nohemi Church) Substance Use Type: Marijuana Physical Exam Vital Signs: Last Vital Signs Pulse 73 12/25/24 11:14 Resp 16 12/25/24 11:14 BP 123/81 12/25/24 11:14 Pulse Ox 97 12/25/24 11:14 Oxygen Delivery Method Room Air 12/25/24 11:14 Assessment & Plan Assessment & Plan (1) Other cervical disc degeneration at C6-C7 level: Code(s): M50.323 - Other cervical disc degeneration at C6-C7 level Category: Medical (2) Radiculopathy, cervical: Code(s): M54.12 - Radiculopathy, cervical region Category: Medical (3) Chronic pain syndrome: Code(s): G89.4 - Chronic pain syndrome Category: Medical (4) Spondylosis of cervical region without myelopathy or radiculopathy: Code(s): M47.812 - Spondylosis without myelopathy or radiculopathy, cervical region Category: Medical Plan Percutaneous implantation of peripheral nerve stimulation Sprint system C5 right side. After the risks, benefits and alternatives were discussed with the patient and informed consent was obtained, patient was placed in the prone position and padded to foster comfort. Time out was performed delineating correct site and side of the procedure , name and of the patient, patient participated in time out procedure. C-arm was brought over the operating field and clear picture of the C5 lamina on the right was delineated on the screen. The upper central portion of the lamina on the left was chosen as a target of the needle tip insertion . After identifying and marking the intended target, the skin around the planned entry point and the subcutaneous tissues were injected with local anesthetic forming skin wheal.. A percutaneous sleeve and stimulating probe lead introduction system were assembled, inserted and advanced through the skin wheal to the point of interest under C-arm view C5 right lamina., the introducer needle was delivered to a location in proximity to the nerve. Multiple stimulation parameters were used to deliver stimulation to the nerve in concert with stimulating at multiple positions around the nerve. The nerve target acquisition was confirmed noting generation of in the corresponding to the nerve being stimulated. Various electrical parameter combinations were tested, and the lead location was adjusted (physically relocated) until the patient indicated overlapping the distribution of the patient?s typical region of pain. The stimulating probe was removed from the introducer and a percutaneous lead was guided through the needle and delivered to a location in similar proximity to the nerve. Final location was verified with electrical stimulation. The introducer needle was removed, and the exposed end of the percutaneous lead was attached to an external stimulator unit. At the end of the case various electrical parameter combinations were again tested until the patient indicated paresthesia or muscle tension overlapping the distribution of the patient?s typical region of pain. After confirming that lead impedance was in the normal range, the external unit was detached, the needle was removed, and the lead was anchored at the skin. The lead was threaded into the connector block and electrical continuity and desired patient response was confirmed. The connector block was attached to the external stimulator unit. The site was covered with a sterile occlusive dressing and a image was taken to document final placement. Upon completion of the procedure the patient was taken outside the OR where she recovered uneventfully she went home without immediate complications. Orders: Orders FL guidance in treatment room Today M47.812 - Spondylosis without myelopathy or radiculopathy, cervical region Coding Level of Care Code Procedure Only Diagnoses Other cervical disc degeneration at C6-C7 level M50.323 Radiculopathy, cervical M54.12 Chronic pain syndrome G89.4 Spondylosis of cervical region without myelopathy or radiculopathy M47.812
--- OUTSIDE RECORDS SUMMARY | 2024-12-25 10:49 | XMS_ITS | Clinical Summary ---
Author Organization [address] [facility] Address [address] [place] [address] Phone Care Team Providers Care Lumber Trimmer Name Role Phone Salud Whittaker Primary Care Provider [phone] Allergies Active Allergy Reactions Criticality Noted Date [...] by mouth 2 times daily. Active butalbital-acetamin gmxvs-hfvpxhxe-ymlk ine (FIORICET WITH CODEINE) 17-326-81-30 mg per capsule Take 1 capsule by [...] Azithromycin for 5 days 3. Robitussin orally phce-qar-epqyegq for cough 4. Continue only with Symbicort [...] 10:30 AM EST Office Visit Pulmonolgy - [address] [place] [address] Salud Mcgill NP [place] (Primary [...] Date Site/Laterality Comments GASTRIC BYPASS N/A PROCEDURE: ID GASTRIC RSTCV W/BYP W/SM INT RCNSTJ LIMIT ABSRPJ KNEE SURGERY Bilateral PROCEDURE: HISTORICAL KNEE SURGERY KIDNEY STONE SURGERY PROCEDURE: ID NEPHROLITHOTOMY REMOVAL CALCULUS BREAST REDUCTION PROCEDURE: ID BREAST REDUCTION COLONOSCOPY PROCEDURE: HISTORICAL COLONOSCOPY Medical [...] 2:00 PM EDT Office Visit Pulmonolgy - [place] [address] [facility] [address] [place] [id number] Salud Mcgill NP [address] [facility] [address] [place] [address] Health Maintenance Due Date Last Done Comments [...] PM EDT Narrative 04/17/2024 4:53 PM EDT [facility] Diagnostic Imaging Department [address] [place] [address] Patient: ??EFE PIERRE ?/Age/Sex: 1965 - 58 - F Unit#: ??[id number] ? Location/Status: ??SPDICATLS/REG CLI ? Mnemonic/Ordering Site: ??CTLUNGLD/SPCT Ordering Physician: ??FEDE MONTEZ MD CT Lung Screening Low Dose [...] Procedure Note Karey Jain MD - 07/16/2024 [facility] Diagnostic Imaging Department [address] [place], [place] [id number] Patient: EFE PIERRE/Age/Sex: 1965 - 58 - F Unit#: [id number] Location/Status: SPDICATLS/REG CLI Mnemonic/Ordering Site: [facility] Ordering Physician: FEDE [...] Annual BMP Blood Test abstracted Historical Provider [facility] E * Hemoglobin A1c (11/04/2023) Hemoglobin A1C 0.0 % Comment:abstracted, no inter pretation Blood Venous blood specimen / Unknown Historical Provider LAB BLOOD ORDERAB LES * Cervical Cancer Screening: HPV (03/24/2023) Pathologist [facility] Cervical Cancer Screening: HPV abstracted, no interpretation Historical Provider [facility] E * Urine Albumin Creatinine Ratio (03/08/2023) Pathologist [facility] Urine Albumin Creatinine Ratio abstracted Historical Provider [facility] E * Colonoscopy (02/10/2023) Pathologist [facility] Colonoscopy abstracted, no interpretation Anatomical Region Laterality Modality Other Historical Provider [facility] * HIV Screening (08/26/2020) [facility] HIV Screening abstracted Historical Provider [facility] E [facility] Hepatitis C Screening (08/26/2020) Pathologist [facility] Hepatitis C Screening abstracted Historical Provider [facility] * DARIEL SCREENING DIGITAL (08/08/2019 5:14 PM EDT) Anatomical Region Laterality Modality Mammography 08/08/2019 1:51 PM EDT Narrative 08/08/2019 5:14 PM EDT [facility] Diagnostic Imaging Department [address] [place], [place] [id number] Patient: ??EFE PIERRE ?/Age/Sex: 1965 - 53 - F Unit#: ??[id number] ? Location/Status: ??SPDIMAM/REG CLI ? Mnemonic/Ordering Site: ??DIGSC/SPMAM Ordering Physician: ??MARIETTA HERNANDEZ APRN Dariel Screening Digital - 08/08/19 - 1421 EXAM: [facility] Screening Digital EXAM DATE AND TIME: 08/08/2019 2:22 PM HISTORY: ??Screening. Reduction mammoplasty in 2007. Maternal grandmother had breast carcinoma. COMPARISON: ??08/29/14, 05/24/13, 04/30/11 TECHNIQUE: CC and MLO views of both breasts were obtained using full field digital mammography. Bilateral digital breast tomosynthesis was performed in the MLO projection. 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 TISSUE DENSITY: b. There [...] Routine screening mammogram BILATERAL in 1 year. [address], 47355 3342F, 7025F Dictating Physician: ??AMALIA BALLARD MD Electronically Signed by: ??AMALIA BALLARD MD Dic Date/Time: ??08/08/19 171 Sign date/Time: ??08/08/19 171 Procedure Note Amalia Ballard - 11/17/2022 [facility] Diagnostic Imaging Department [address] [place] [id number] Patient: SHYAM BERNARDEFEMILLICENT López./Age/Sex: 1965 - 53 - F Unit#: [id number] Location/Status: SPDIMAM/REG CLI Mnemonic/Ordering Site: [facility] Ordering Physician: MARIETTA HERNANDEZ APRN [facility] Screening Digital - 08/08/19 - 1421 EXAM: [facility] Screening Digital EXAM DATE AND TIME: 08/08/2019 2:22 PM HISTORY: Screening. Reduction mammoplasty in 2007. Maternal grandmotherhad breast carcinoma. COMPARISON: 08/29/14, 05/24/13, 04/30/11 TECHNIQUE: CC and MLO views of both breasts were obtained using fullfield digital mammography. Bilateral digital breast tomosynthesis was performedin the MLO projection. 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 TISSUE DENSITY: b. There are scattered [...] Routine screening mammogram BILATERAL in 1 year. 41085, 22027 3342F, 7025F Dictating Physician: AMALIA BALLARD MD Electronically Signed by: AMALIA BALLARD MD Dic Date/Time: 09/11/19 1713 Sign date/Time: 08/08/191713 Marietta Hernandez APN IMG BI PROCEDURE S from Last 3 Months or Most Recently Relevant to Health Maintenance Care Teams Lumber Trimmer Relationship Specialty Start Date End Date Salud Whittaker PA [address] [place] [address] PCP - General Internal Medicine 06/05/21
--- OUTSIDE RECORDS SUMMARY | 2024-12-25 10:49 | XMS_ITS ---
Author Organization [facility] Address [address] [address] Care Team Providers Care Real Estate Appraiser Supervisor Name Role Phone Salud Whittaker PA-C Primary Care Provider [id number] [facility] Program Status:Enrolled (Active) Start date:08/05/2023 Enrollment date:08/05/2023 Case Team Name Relationship Phone Meg Aguilar LPN (Responsible Staff) Continued Care and Services Coordination
--- OUTSIDE RECORDS SUMMARY | 2024-12-25 10:49 | XMS_ITS | Clinical Summary ---
Author Organization [facility] Address [address] [place] [address] Care Team Providers [facility] Chief Financial Officer Name Role Phone Salud Whittaker PA-C Primary Care Provider [phone] Source Comments PLEASE NOTE, if this patient [...] long-term current use of insulin ([facility]) Use qd, dx E11.9 50 Each 11 05/27/20 23 Active lancets (FREESTYLE LANCETS) 28 gaugeIndications :Type 2 diabetes mellitus without complication, without long-term current use of insulin ([facility]) Freestyle lite lancets, use QD, dx E11.9 50 Each 05/27/20 23 Active blood sugar diagnostic stripsIndication s:Type 2 diabetes mellitus without complication, without long-term current use of insulin ([facility]) 1 Each daily. Freestyle lite strips use QD, dx E11.9 50 Each 11 05/27/20 23 Active blood-glucose meter monitoring kitIndications:T ype 2 diabetes mellitus without complication, without long-term current use of insulin ([facility]) 1 Each daily. Freestyle lite meter, disp [...] mcg/dose dsdvIndications: Asthma-COPD overlap syndrome ([facility]) TOME EDENILSON INHALACI N POR V A ORAL TODOS LOS D 08/01/20 23 Active INCRUSE ELLIPTA 62.5 mcg/actuation dsdvIndications: Asthma-COPD overlap syndrome (HCC-CMS) TOME EDENILSON INHALACI N POR V A ORAL TODOS LOS D Active sertraline (ZOLOFT) 100 mg tabletIndication s:Bipolar affective disorder, remission status unspecified ([facility]) TOME EDENILSON TABLETA TODOS LOS D EN LA MA CHECO 08/09/20 23 Active phenytoin ER (DILANTIN) 100 mg ER capsuleIndicatio ns:Bipolar affective disorder, remission status unspecified ([facility]) TOME 2 C PSULAS POR V A ORAL CADA DOCE HORAS 08/09/20 23 Active lidocaine-diphen okr-lx-avj-sim (FIRST[employer]M) 886-12-346-40 mg/30 mL mouthwashIndicat ions:Aphthous ulcer Take 5 [...] complication, without long-term current use of insulin ([facility]) 03/08/2023 Bipolar disorder ([facility]) 07/31/2022 Mild intermittent asthma, uncomplicated 07/31/20 22 Seizure ([facility]) 07/31/2022 Overview (08/15/2023): Dr Chela Billings, from [facility] (neurology)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 by VEEG, but other [...] October 29, 2019 9:26 EST Encounter info: [id number], [facility], Discharged OutPatient, 10/29/2019 - 10/29/2019 Document Contains Addenda Addendum by Terrell Slater NP on November 06, 2019 14:35 EST (Verified) Received from a [facility] dated November 15 2017 through July 10, [...] Slater NP Visit Information OUTPATIENT NEUROLOGY CONSULTATION [facility] DATE: 10/29/2019 CHIEF COMPLAINT: Headaches HISTORY OF PRESENT ILLNESS: The patient is a 53-year-old female Ghanaian speaking female with past medical hx of bipolar (following with [facility] every 3 months, & psychotherapist 1x /month ) Seizures - reportedly diagnosed at [facility] > 10 yrs ( was following Amaury [...] is accompanied by her boyfriend Yoshi. A air pollution auditor is available for this visit. 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 Sensory Exam: Light touch, [...] obtain records from previous treating neurologist at [facility] for review and then we can [...] to obtain records from prior neurologist at [facility]. The patient will follow-up in our clinic in 3 months . The patient knows to call us sooner if there are any problems. Terrell Slater N.P. Department of Neurology [facility] cc: Impression and Plan Comprehensive Plan Encounter Time Total length of time of the encounter 45 minutes Time spent counseling/coordinating care 35 minutes Discussed with: Linn Cabral MD. Report sent to all consultants: Dvaid JORGENSEN, [place]. Poor historian 08/26/2020 Abnormality of [...] May 04, 2019 15:42 EDT Encounter info: [id number], [facility], Disch ES, 05/04/2019 - 05/04/2019 * [...] 489 mGy*cm. COMPARISON: CT 11/03/2018. 12/15/2018. FINDINGS: Authors Motivational View Findings, Lines and Tubes: None. Visualized [...] and I agree with this report. WSN: [id number] Signature Line Dictated By: Lynette Arevalo MD [...] June 18, 2019 13:34 EDT Encounter info: [id number], [facility], Recurring OP, 05/29/2019 - [...] secondary to radial fracture, knee operation in [place]. Repair of right tibial and fibular fracture November 28, 2017 INTERVAL HISTORY: The patient comes in today for a followup visit, with the help of a air pollution auditor. Cyndi was last seen 6 months ago. [...] July 02, 2019 11:37 EDT Encounter info: [id number], [facility], One Time OP, 07/02/2019 - 07/02/2019 * [...] in signal. The flow voids through the tolowa dee-ni' of [place] are maintained, and there is [...] represent chronic microangiopathic/small vessel ischemic change. WSN: [id number] Signature Line Dictated By: Timothy Pena MD [...] March 20, 2019 10:37 EDT Encounter info: [id number], [facility], 03/20/2019 - 03/22/2019 * [...] no focal bony lesion. 2. . WSN: [id number] Signature Line Dictated By: David Lee MD [...] October 29, 2019 9:26 EST Encounter info: [id number], [facility], Discharged OutPatient, 10/29/2019 - 10/29/2019 Document Contains Addenda Addendum by Terrell Slater NP on November 06, 2019 14:35 EST (Verified) Received from a neurological [facility] dated November 15 2017 through July 10, [...] Slater NP Visit Information OUTPATIENT NEUROLOGY CONSULTATION [facility] DATE: 10/29/2019 CHIEF COMPLAINT: Headaches HISTORY OF PRESENT ILLNESS: The patient is a 53-year-old female Ghanaian speaking female with past medical hx of bipolar (following with [facility] every 3 months, & psychotherapist 1x /month ) Seizures - reportedly diagnosed at [facility] > 10 yrs ( was following [facility] [...] is accompanied by her boyfriend Yoshi. A air pollution auditor is available for this visit. 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 Sensory Exam: Light touch, [...] obtain records from previous treating neurologist at [facility] for review and then we can [...] to obtain records from prior neurologist at [facility]. The patient will follow-up in our clinic in 3 months . The patient knows to call us sooner if there are any problems. Terrell Slater N.P. Department of Neurology [facility] cc: Impression and Plan Comprehensive Plan Encounter Time Total length of time of the encounter 45 minutes Time spent counseling/coordinating care 35 minutes Discussed with: Linn Cabral MD. Report sent to all consultants: David JORGENSEN, [place]. Encounters Date Type Department Care Team Description 09/26/2024 10:40 AM EDT Office Visit [address] [phone] Salud Whittaker PA-C Routine general medical examination at a health care facility (Primary Dx); Type 2 diabetes mellitus without complication, without long-term current use of insulin ([facility]); Hand arthritis; Essential hypertension, benign; Mixed headache; [...] 01/29/2025 4:20 PM EST Office Visit [facility] [address] [place] [address] Salud Whittaker PA-C [address] [place] [address] Health Maintenance Due Date Last Done Comments STI Counseling [address] Colonography 2010 Fecal DNA 2010 Flexible Sigmoidoscopy 2010 Imm-DTaP/Tdap/Td (1 - Tdap) 07/03/2013 07/02/2013 FIT/gFOBT 09/16/2017 09/16/2016 Diabetes Foot Exam 03/08/2024 03/08/2023 Diabetes Microalbumin (w/Creatinine) 03/08/2024 03/08/2023 [id number]-47 ( season) 2024 04/01/2022, 04/30/2021, 04/09/2021 Imm-Influenza [...] EDT Routine general medical examination at a [facility] Type 2 diabetes mellitus without complication, without long-term current use of insulin ([facility]) Hand arthritis Essential hypertension, benign Mixed headache Left hip pain STD exposure ASSAY OF BLOOD/URIC ACID Routine 09/26/2024 1:05 PM EDT Routine general medical examination at a [facility] facility Type 2 diabetes mellitus without complication, without long-term current use of insulin ([facility]) Hand arthritis Essential hypertension, benign Mixed headache Left hip pain STD exposure HIV 1/2 AG & AB W/RFLX (4TH GEN) Routine 09/26/2024 1:05 PM EDT Routine general medical examination at a [facility] facility Type 2 diabetes mellitus without complication, without long-term current use of insulin ([facility]) Hand arthritis Essential hypertension, benign Mixed headache Left hip pain STD exposure HEPATITIS C AB W/RFLX HCV RNA, QT, RT PCR Routine 09/26/2024 1:05 PM EDT Routine general medical examination at a [facility] Type 2 diabetes mellitus without complication, without long-term current use of insulin ([facility]) Hand arthritis Essential hypertension, benign Mixed headache Left hip pain STD exposure HEPATITIS B SURFACE AG, EIA WITH REFLEX CONFIRM Routine 09/26/2024 1:05 PM EDT Routine general medical examination at a [facility] Type 2 diabetes mellitus without complication, without long-term current use of insulin ([facility]) Hand arthritis Essential hypertension, benign Mixed headache Left hip pain STD exposure RPR (DIAGNOSIS) WITH REFLEX TO TITER AND CONFIRMATORY TESTING Routine 09/26/2024 1:05 PM EDT Routine general medical examination at a [facility] Type 2 diabetes mellitus without complication, without long-term current use of insulin ([facility]) Hand arthritis Essential hypertension, benign Mixed headache Left hip pain STD exposure C TRACHOMATIS/N GONORRHOEAE RNA,TMA Routine 09/26/2024 1:05 PM EDT Routine general medical examination at a [facility] Type 2 diabetes mellitus without complication, without long-term current use of insulin ([facility]) Hand arthritis Essential hypertension, benign Mixed headache Left hip pain STD exposure ASSAY OF MAGNESIUM Routine 09/26/2024 1: 05 PM EDT Routine general medical examination at a [facility] Type 2 diabetes mellitus without complication, without long-term current use of insulin ([facility]) Hand arthritis Essential hypertension, benign Mixed headache Left hip pain STD exposure VITAMIN B12 & FOLATE Routine 09/26/2024 1:05 PM EDT Routine general medical examination at a [facility] Type 2 diabetes mellitus without complication, without long-term current use of insulin ([facility]) Hand arthritis Essential hypertension, benign Mixed headache Left hip pain STD exposure LYME DISEASE, IGG/IGM AB, WESTERN BLOT Routine 09/26/2024 1:05 PM EDT Routine general medical examination at a [facility] Type 2 diabetes mellitus without complication, without long-term current use of insulin ([facility]) Hand arthritis Essential hypertension, benign Mixed headache Left hip pain STD exposure BLOOD COUNT COMPLETE AUTO&AUTO DIFRNTL WBC Routine 09/26/2024 1:05 PM EDT Routine general medical examination at a [facility] Type 2 diabetes mellitus without complication, without long-term current use of insulin ([facility]) Hand arthritis Essential hypertension, benign Mixed headache Left hip pain STD exposure COMPREHENSIVE METABOLIC PANEL Routine 09/26/2024 1:05 PM EDT Routine general medical examination at a [facility] facility Type 2 diabetes mellitus without complication, without long-term current use of insulin ([facility]) Hand arthritis Essential hypertension, benign Mixed headache Left hip pain STD exposure LIPID PANEL Routine 09/26/2024 1:05 PM EDT Routine general medical examination at a [facility] facility Type 2 diabetes mellitus without complication, without long-term current use of insulin ([facility]) Hand arthritis Essential hypertension, benign Mixed headache Left hip pain STD exposure TSH W/RFLX FREE T4 Routine 09/26/2024 1: 05 PM EDT Routine general medical examination at a [facility] facility Type 2 diabetes mellitus without complication, without long-term current use of insulin ([facility]) Hand arthritis Essential hypertension, benign Mixed headache Left hip pain STD exposure HEMOGLOBIN GLYCOSYLATED A1C Routine 09/26/2024 1:05 PM EDT Routine general medical examination at a [facility] facility Type 2 diabetes mellitus without complication, without long-term current use of insulin ([facility]) Hand arthritis Essential hypertension, benign Mixed headache Left hip pain STD exposure MAMMO DIGITAL SCREEN SIERRA W CAD 3D Routine 11/12/2023 3:00 AM EST Breast cancer screening by mammogram PAP SMEAR W/HPV, ABSTRACTED Routine 03/24/2023 10:00 AM EDT MICROALBUMIN/CREATININ E RATIO, URINE, RANDOM Routine 03/08/2023 3:27 PM EDT Routine general medical examination at a [facility] facility Asthma-COPD overlap syndrome ([facility]) Essential hypertension, benign Moderate persistent asthma without [...] CONFIRMATORY TESTING (09/26/2024 1:05 PM EDT) Pathologist [facility] RPR (DX) W/REFL TITER AND CONFIRMATORY TESTING NON-REACT MARY LOU NON-REACT MARY LOU [employer] Comment: No laboratory evidence of syphilis. If recent exposure is suspected, submit a new sample in 2-4 weeks. Serum Blood / Unknown 09/26/2024 1 :05 PM EDT 09/26/2024 1:06 PM EDT Narrative [facility] - 10/04/2024 9:33 AM EST FASTING:NO Salud NG-C LAB - BLOOD DRAW Edited Resu lt - Final [facility] [address] [place] [address], [employer] [address] [address] * HEPATITIS C AB W/RFLX HCV RNA, QT, RT PCR (09/26/2024 1:05 PM EDT) Pathologist [facility] HEPATITIS C ANTIBODY NON-REACT MARY LOU NON-REACT MARY LOU [employer] Comment: HCV antibody was non-reactive. There is no laboratory evidence of HCV infection. In most cases, no further action is required. However, if recent HCV exposure is suspected, a test for HCV RNA (test code 19742) is suggested. For additional information please refer to http://education.Computerlogy/faq/CCS85p8 (This link is being provided for informational/ educational purposes only.) Blood Blood / Unknown 09/26/2024 1 :05 PM EDT 09/26/2024 1:06 PM EDT Narrative [facility] - 10/04/2024 9:33 AM EST FASTING:NO Saludrosaura NG-C LAB - BLOOD DRAW Edited Resu lt - Final [facility] [address] [address], [employer] [address] [address] * (ABNORMAL) ??RHEUMATOID ARTHRITIS DIAGNOSTIC PANEL 1 (09/26/2024 1:05 PM EDT) RHEUMATOID FACTOR <10 <14 IU/mL [employer] CYCLIC CITRULLINATED PEPTIDE CCP AB IGG 29(H) 19 UNITS [employer] Comment: Reference Range Negative: ?<20 Weak Positive: ? 20-39 Moderate Positive: ?? 40-59 Strong Positive: ? >59 INTERPRETATION See Note [employer] Comment: Consistent with rheumatoid arthritis in a patient with polyarthritis. A positive anti-CCP result is frequently found in patients with early rheumatoid arthritis and may be associated with progression of joint destruction. Blood Blood / Unknown 09/26/2024 1 :05 PM EDT 09/26/2024 1:06 PM EDT Narrative [facility] - 10/04/2024 9:33 AM EST FASTING:NO Salud Whittaker PA-C LAB - BLOOD DRAW Final Resul t Performing Organization Address [facility] Co de Phone Number [facility] [address] [place] [address], [employer] [address] [address] * HIV 1/2 AG & AB W/RFLX (4TH GEN) (09/26/2024 1:05 PM EDT) Pathologist [facility] HIV AG/AB, 4TH GEN NON-REAC TIVE NON-REAC TIVE [employer] Comment: HIV-1 antigen and HIV-1/HIV-2 antibodies were [...] ?? For additional information please refer to http://[employer].Computerlogy/faq/TDC074 (This link is being provided for informational/ educational purposes only.) The performance of this assay has not been clinically validated in patients less than 2 years old. Blood Blood / Unknown 09/26/2024 1 :05 PM EDT 09/26/2024 1:06 PM EDT Narrative [employer] [facility] - 10/04/2024 9:33 AM EST FASTING:NO Salud Whittaker PA-C LAB - BLOOD DRAW Final Resul t Performing Organization Address [facility] de Phone Number [employer] [address] [address], [employer] [address] [address] * C TRACHOMATIS/N GONORRHOEAE RNA,TMA (09/26/2024 1:05 PM EDT) Pathologist [facility] CHLAMYDIA TRACHOMATIS RNA, TMA NOT DETECTED NOT DETECTED [facility] NEISSERIA GONORRHOEAE RNA, TMA NOT DETECTED NOT DETECTED [facility] COMMENT [employer] Urine Urine specimen / Unknown 09/26/2024 1:05 PM EDT 09/26/2024 1:06 PM EDT Narrative [facility] - 10/04/2024 9:33 AM EST FASTING:NO The analytical performance characteristics of this assay, when used to test SurePath(TM) specimens have been determined by [employer]. The modifications have not been cleared or approved by the FDA. This assay has been validated pursuant to the CLIA regulations and is used for clinical purposes. For additional information, please refer to https://Applied Nano[employer].Computerlogy/faq/AVO915 (This link is being provided for information/ educational purposes only.) Salud Whittaker PA-C LAB - NO BLOOD DRAW Edited R esult - Final Performing Organization Address [facility] Co de Phone Number [employer] [address] [address], [employer] [address] [address] * TSH W/RFLX FREE T4 (09/26/2024 1:05 PM EDT) Pathologist [facility] TSH W/REFLEX TO FT4 0.58 0.40 - 4.50 mIU/L [facility] Blood Blood / Unknown 09/26/2024 1 :05 PM EDT 09/26/2024 1:06 PM EDT Narrative [employer] - 10/04/2024 9:33 AM EST FASTING:NO us Salud Whittaker PA-C LAB - BLOOD DRAW Edited Resu lt - Final Performing Organization Address [facility] de Phone Number [employer] [address] [address], [employer] [address] [address] * HEPATITIS B SURFACE AG, EIA WITH REFLEX CONFIRM (09/26/2024 1:05 PM EDT) [facility] HEPATITIS B SURFACE ANTIGEN NON-REACT MARY LOU NON-REACT MARY LOU [employer] COMMENT [facility] [employer] [facility] Blood Blood / Unknown 09/26/2024 1 :05 PM EDT 09/26/2024 1:06 PM EDT Narrative [employer] - 10/04/2024 9:33 AM EST FASTING:NO For additional information, please refer to http://education.Computerlogy/faq/KRY500 (This link is being provided for informational/ educational purposes only.) us Salud Whittaker PA-C LAB - BLOOD DRAW Edited Resu lt - Final Performing Organization Address [facility] Co de Phone Number [employer] [facility] [address] [address], [employer] [address] [address] * LYME DISEASE, IGG/IGM AB, WESTERN BLOT (09/26/2024 1:05 PM EDT) LYME DISEASE AB (IGG) WB NEGATIVE NEGATIVE [facility] 18 KD (IGG) BAND NON-REACTIVE [facility] 23 KD (IGG) BAND NON-REACTIVE [facility] 28 KD (IGG) BAND NON-REACTIVE [facility] 30 KD (IGG) BAND NON-REACTIVE [facility] 39 KD (IGG) BAND NON-REACTIVE [facility] 41 KD (IGG) BAND NON-REACTIVE [facility] 45 KD (IGG) BAND NON-REACTIVE [facility] 58 KD (IGG) BAND NON-REACTIVE [facility] 66 KD (IGG) BAND NON-REACTIVE [facility] 93 KD (IGG) BAND NON-REACTIVE [facility] LYME DISEASE AB (IGM) WB NEGATIVE NEGATIVE [facility] 23 KD (IGM) BAND NON-REACTIVE [facility] 39 KD (IGM) BAND NON-REACTIVE [facility] 41 KD (IGM) BAND NON-REACTIVE [facility] COMMENT [facility] Blood Blood / Unknown 09/26/2024 1 :05 PM EDT 09/26/2024 1:06 PM EDT Narrative [facility] - 10/04/2024 9:33 AM EST FASTING:NO [place] [...] Edited Resu lt - Final [facility] [address] [address], [facility] [address] [place] [address] * (ABNORMAL) VITAMIN B12 & FOLATE (09/26/2024 1:05 PM EDT) Pathologist [facility] VITAMIN B12 >2000(H) 200 - 1100 pg/mL [employer] FOLATE, SERUM 17.0 5.5 ng/mL [employer] Comment: ? Reference Range ? Low: ? <3.4 ? Borderline: ?3.4-5.4 ? Normal: ?>5.4 Blood Blood / Unknown 09/26/2024 1 :05 PM EDT 09/26/2024 1:06 PM EDT Narrative [employer] - 10/04/2024 9:33 AM EST FASTING:NO us Salud Whittaker PA-C LAB - BLOOD DRAW Edited Resu lt - Final [employer] [address] [address], [employer] [address] [address] * BLOOD COUNT COMPLETE AUTO&AUTO DIFRNTL WBC (09/26/2024 1:05 PM EDT) Pathologist [facility] WHITE BLOOD CELL COUNT 6.9 3.8 - 10.8 Thousand/ uL [employer] RED BLOOD CELL COUNT 4.52 3.80 - 5.10 Million/u L [employer] HEMOGLOBIN 12.9 11.7 - 15.5 g/dL [employer] HEMATOCRIT 39.8 35.0 - 45.0 % [employer] MCV 88.1 80.0 - 100.0 fL [employer] MCH 28.5 27.0 - 33.0 pg [employer] MCHC 32.4 32.0 - 36.0 g/dL [employer] Comment: For adults, a slight decrease in the calculated MCHC value (in the range of 30 to 32 g/dL) is most likely not clinically significant; however, it should be interpreted with caution in correlation with other red cell parameters and the patient's clinical condition. RDW 13.1 11.0 - 15.0 % [employer] PLATELET COUNT 361 140 - 400 Thousand/ uL [employer] MPV 9.2 7.5 - 12.5 fL [employer] ABSOLUTE NEUTROPHILS 4,016 1,500 - 7,800 cells/uL [employer] ABSOLUTE LYMPHOCYTES 1,973 850 - 3,900 cells/uL [employer] ABSOLUTE MONOCYTES 697 200 - 950 cells/uL [employer] ABSOLUTE EOSINOPHILS 131 15 - 500 cells/uL [employer] ABSOLUTE BASOPHILS 83 0 - 200 cells/uL [employer] NEUTROPHILS PCT 58.2 % [employer] LYMPHOCYTES 28.6 % [employer] MONOCYTES 10.1 % [employer] [facility] [employer] EOSINOPHILS 1.9 % [facility] [employer] BASOPHILS 1.2 % [employer] Blood Blood / Unknown 09/26/2024 1 :05 PM EDT 09/26/2024 1:06 PM EDT Narrative [facility] - 10/04/2024 9:33 AM EST FASTING:NO Salud Whittaker PA-C LAB - BLOOD DRAW Edited Resu lt - Final [facility] [employer] [address] [address], [employer] [address] [place] [phone] * ASSAY OF BLOOD/URIC ACID (09/26/2024 1:05 PM EDT) URIC ACID 3.5 2.5 - 7.0 mg/dL [employer] Comment: Therapeutic target for gout patients: <6.0 mg/dL ?? Blood Blood / Unknown 09/26/2024 1 :05 PM EDT 09/26/2024 1:06 PM EDT Narrative [employer] - 10/04/2024 9:33 AM EST FASTING:NO Salud Whittaker PA-C LAB - BLOOD DRAW Edited [facility] Performing Organization Address [facility] Co de Phone Number [facility] [address] [place] [address], [employer] [address] [address] * ASSAY OF MAGNESIUM (09/26/2024 1:05 PM EDT) Pathologist [facility] MAGNESIUM 2.1 1.5 - 2.5 mg/dL [employer] Blood Blood / Unknown 09/26/2024 1 :05 PM EDT 09/26/2024 1:06 PM EDT Narrative [facility] - 10/04/2024 9:33 AM EST FASTING:NO Salud Whittaker PA-C LAB - BLOOD DRAW Edited [facility] Performing Organization Address [facility] de Phone Number [employer] [address] [address], [employer] [address] [address] * HEMOGLOBIN GLYCOSYLATED A1C (09/26/2024 1:05 PM EDT) Pathologist [facility] HEMOGLOBIN A1C 5.4 <5.7 % of total Hgb [employer] Comment: For the purpose of screening for the presence of diabetes: <5.7% ? Consistent with the absence of diabetes 5.7-6.4% ?Consistent with increased risk for diabetes ?(prediabetes) > or =6.5% ??Consistent with diabetes This assay result is consistent with a decreased risk of diabetes. Currently, no consensus exists regarding use of hemoglobin A1c for diagnosis of diabetes in children. According to [place] Diabetes Association (ADA) guidelines, hemoglobin A1c <7.0% represents optimal control in non- diabetic patients. Different metrics may apply to specific patient populations. Standards of Medical Care in Diabetes(ADA). ?? Blood Blood / Unknown 09/26/2024 1 :05 PM EDT 09/26/2024 1:06 PM EDT Narrative [facility] - 10/04/2024 9:33 AM EST FASTING:NO us Salud Whittaker PA-C LAB - BLOOD DRAW Edited Resu lt - Final [employer] [address] [address], [employer] [address] [address] * (ABNORMAL) LIPID PANEL (09/26/2024 1:05 PM EDT) CHOLESTEROL, TOTAL 208(H) <200 mg/dL [facility] HDL CHOLESTEROL 90 > OR = 50 mg/dL [facility] TRIGLYCERIDES 117 <150 mg/dL [facility] LDL-CHOLESTEROL 97 99 mg/dL (calc) [employer] Comment: Reference range: <100 Desirable range <100 mg/dL for primary prevention; ?? <70 mg/dL for patients with CHD or diabetic patients with > or = 2 CHD risk factors. LDL-C is now calculated using the Juno-Zazueta calculation, which is a validated novel method providing better accuracy than the Friedewald equation in the estimation of LDL-C. Juno SS et al. OMAR. 2013;310(19): 8658-7283 (http://education.Project Talents/faq/NMH964) CHOL/HDLC RATIO 2.3 <5.0 (calc) [facility] NON-HDL CHOLESTEROL 118 <130 mg/dL (calc) [employer] Comment: For patients with diabetes plus 1 major ASCVD risk factor, treating to a non-HDL-C goal of <100 mg/dL (LDL-C of <70 mg/dL) is considered a therapeutic option. Blood Blood / Unknown 09/26/2024 1 :05 PM EDT 09/26/2024 1:06 PM EDT Narrative [employer] [facility] - 10/04/2024 9:33 AM EST FASTING:NO us Salud Whittaker PA-C LAB - BLOOD DRAW Final Resul t [facility] [address] [address], [employer] [address] [place] [address] * (ABNORMAL) COMPREHENSIVE METABOLIC PANEL (09/26/2024 1:05 PM EDT) GLUCOSE 72 65 - 139 mg/dL [facility] Comment: ?Non-fasting reference interval UREA NITROGEN (BUN) 11 7 - 25 mg/dL [facility] CREATININE (blood) 0.53 0.50 - 1.03 mg/dL [facility] EGFR 107 > OR = 60 mL/min/1. 73m2 [facility] BUN/CREATININE RATIO SEE NOTE: [facility] Comment: ?? Not Reported: BUN and Creatinine are within ?? reference range. ? SODIUM 138 135 - 146 mmol/L [facility] POTASSIUM 4.5 3.5 - 5.3 mmol/L [facility] CHLORIDE 103 98 - 110 mmol/L [facility] CARBON DIOXIDE 27 20 - 32 mmol/L [facility] CALCIUM 9.4 8.6 - 10.4 mg/dL [employer] PROTEIN, TOTAL 6.6 6.1 - 8.1 g/dL [facility] ALBUMIN 4.0 3.6 - 5.1 g/dL [facility] [place] [employer] GLOBULIN 2.6 1.9 - 3.7 g/dL (calc) [facility] ALBUMIN/GLOBULI N RATIO 1.5 1.0 - 2.5 (calc) [facility] BILIRUBIN, TOTAL 0.2 0.2 - 1.2 mg/dL [facility] ALKALINE PHOSPHATASE 183(H) 37 - 153 U/L [facility] AST 17 10 - 35 U/L [facility] ALT 15 6 - 29 U/L [employer] Blood Blood / Unknown 09/26/2024 1 :05 PM EDT 09/26/2024 1:06 PM EDT Narrative [employer] [facility] - 10/04/2024 9:33 AM EST FASTING:NO us Salud Whittaker PA-C LAB - BLOOD DRAW Edited Resu lt - Final Performing Organization Address City/[facility]/ZIP Co de Phone Number [facility] [employer] [facility] [address] [address], [facility] [address] [place] [address] * MAMMO DIGITAL SCREEN SIERRA W CAD 3D (11/12/2023 3:00 AM EST) 11/12/2023 3:00 AM EST Salud Whittaker PA-C IMG MAMMO Edited Resul t - Final * PAP SMEAR W/HPV (03/24/2023 10:00 AM EDT) PAP SMEAR INTERPRETATION NORMAL NORMAL [facility] HPV (HUMAN PAPILLOMA) NEGATIVE NEGATIVE [facility] HPV TYPE [address] [facility] HPV TYPE [address] [facility] Swab 03/24/2023 10:0 0 AM EDT Impressions [facility] - 05/24/2023 10:31 AM EDT Negative for squamous intraepithelial lesion and malignancy High risk HPV assay: Negative Provider [facility] - NO BLOOD DRAW Final Result Performing Organization Address City/[facility]/ZIP Co de Phone Number [facility] [address] [place] [address], * MICROALBUMIN/CREATININE RATIO, URINE, RANDOM (03/08/2023 3:27 PM EDT) CREATININE, RANDOM URINE 122 20 - 275 mg/dL [facility] [employer] [facility] MICROALBUMIN 0.6 mg/dL [email or web address] [facility] Comment: Reference Range Not established MICROALBUMIN/CREA TININE RATIO, RANDOM URINE 5 <30 mcg/mg creat [facility] [employer] [facility] Comment: The ADA defines abnormalities in albumin [...] - NO BLOOD DRAW Final Re sult [facility] [address] [address], [facility] [address] [place] [address] * HISTORIC COLONOSCOPY (02/10/2023 3:00 AM EDT) 02/10/2023 3:00 AM EDT Salud Whittaker PA-C PROCEDURES Final Result from Last 3 Months or Most Recently Relevant to Health Maintenance Insurance [id number] [employer] Care Teams Hospital Chief Financial Officer Relationship Specialty Start Date End Date Salud Whittaker PA-C [address] [place] [address] PCP - General Internal Medicine 03/15/19
[2024-12-25 11:14] VITALS: BP 123/81; PULSE 73; RESP 16; O2SAT 97
== END 2024-12-25 11:45 | disposition home or self-care (01) ==
LOC: HO.PMCPRC 10:03
PROVIDERS: PCP Physician Assistant; Visit Provider Anesthesiology
DX: M50.323 Other cervical disc degeneration at C6-C7 level (principal); M54.12 Radiculopathy, cervical region; G89.4 Chronic pain syndrome; M47.812 Spondylosis without myelopathy or radiculopathy, cervical region
CPT/HCPCS: 64555

== ENCOUNTER 2024-12-31 10:40 | Outpatient (AMB) | payer MEDICAID, SELFPAY ==
--- NOTE | 2024-12-31 10:42 | MHC.OFFVIS ---
Vital Signs 12/31/24 10:50 Height 5 ft 0.3 in Weight 174 lb BMI 33.6 BP 144/79 H Blood Pressure Location Lt brachial Position Sitting Pulse 74 Pulse Source Pulse Oximeter Intake Visit Reasons: RIGHT C4 SPRINT PNS TRIAL/12/25/24 Intake Note: Pain today 0/10 Elevator Mechanic Required: Yes Elevator Mechanic Language: Bengali Accompanied by: Spouse Allergies No Known Allergies Allergy (Verified 12/31/24 10:50) HPI Comments Details: Yoana is back in my office after sprint PNS insertion on the right. Even with 1 electrode she already reports her pain 0/10. She reports excellent mobility very good activities of daily living great social interactions. Dressing change was performed today. There is no signs of infection or inflammation. She understands hygiene limitations. Her relative is today with her and she states that he can not change her dressing. Otherwise she is welcome to come here for nursing visits and her dressing will be changed. She needs to continue to were device for next 8 weeks. After that device will be removed but pain control will last longer after that. Prior: diagnostic medial branch block C4-C5 C6 bilateral which was performed on 10/02/2024. She reports that why she has significant discomfort from the needle stick injections she had immediate and almost complete pain relief from the discomfort of her chronic pain. She reported very good mobility restored to her neck. She record excellent activities of daily living. She is able to demonstrate improved range of motion of her cervical spine. She reports today her pain is 3/10. Her chronic pain immediately after the injection disappeared was 0/10 while she is still was experiencing some irritation and discomfort from needle injections. I offered to the patient and explained to her that I prefer to do sprint PNS for her. I explained for her details of the procedure. I will schedule her for this procedure in the injection area without sedation. Prior: very pleasant 58 years old female who presents in my office with complains on pain in the cervical spine with radiation into bilateral upper extremities all the way to her mid forearms bilaterally. She denies radiation of the pain into wrists fingers or hands. She reports the pain mostly axial and radiation of the pain is on the background. She admits pain aggravation with flexing had backwards. She admits tenderness on palpation in paraspinal regions in the cervical spine. Therefore the pain of the patient is most likely facetogenic in nature. I offered the patient diagnostic medial branch block C4-C5 C6 bilateral to help her pain. I explained the nature of diagnostic block to the patient. She had extensive physical therapy which alleviated her pain minimally. She has not satisfied with results of physical therapy. She tried OTC NSAIDs to help her pain however those medications do not help her pain. On the MRI of the cervical spine there are some changes dictated as below. All of those changes could be possible pain generators for this patient. [facility] Social History (Updated 03/29/24 @ 15:24 by Nohemi Church) Substance Use Type: Marijuana Review of Systems Const All systems reviewed & are unremarkable except as noted in HPI and below ENT Reports Normal hearing present Neuro Reports Normal hearing present, Denies Abnormal speech present, Denies confusion and Denies Sensory deficit (Neuro) Psych Denies confusion Physical Exam Vital Signs: Last Vital Signs Pulse 74 12/31/24 10:50 BP 144/79 H 12/31/24 10:50 BMI result Body Mass Index 33.6 Const General: no acute distress; No confusion Orientation/consciousness: patient oriented x3 and No confusion Eyes General: appearance normal, both eyes and all related structures Pupils: Equal, round and reactive pupils present EOM: EOMs intact bilaterally Neck Other: Limited range of motion cervical spine however with improvement today. Denies incontinence with urine and/or stool. Denies urinary retention. Denies weakness of bilateral lower extremities. Admits pain in bilateral knees and general fatigue. Tenderness on palpation in paraspinal spinal region of cervical spine. Bicep tendon reflexes and triceps tendon reflexes are brisk +2 however no clonus is observed. Neck: No full ROM and No supple Chest Chest palpation & inspection: normal inspection of the chest Resp Effort & Inspection: normal respiratory effort, able to speak in complete sentences, normal respiratory pattern, no audible wheezes and no cough Cardio Jugular venous distension: no JVD GI Inspection: Yes normal to inspection Neuro General: patient oriented x3, gait normal and No confusion Cranial nerves: Yes CN's II-XII intact bilaterally, Yes Equal, round and reactive pupils present, Yes Normal hearing present and Yes Ability to bilaterally elevate shoulders present Speech: No Abnormal speech present Gait exam (Neuro): Normal gait present Motor exam (neuro): 5/5 motor strength present throughout Sensory Exam: No Sensory deficit (Neuro) Extrem General: No pedal edema Psych Speech and movement: Normal speech and movement present Affect: normal affect Attitude: cooperative Thought process: Normal thought process present Thought content: Normal thought content present Insight: Good insight present (Psych) Judgement: Good judgement present (Psych) Results Reviewed Results Reviewed: MR SPINE CERVICAL without CONTRAST INDICATION: Foraminal stenosis of cervical region, pain. TECHNIQUE: Unenhanced multiplanar, multisequence MR imaging of the cervical spine. COMPARISON: None Available. FINDINGS: There is straightening of the normal cervical lordosis. Vertebral heights are well maintained. Craniocervical junction is unremarkable. There is a T2 and T1 hyperintense vertebral body lesion at the T2 vertebral level which could represent a hemangioma. Prevertebral and paraspinal soft tissues are within normal limits. Visualized portions of the posterior fossa are unremarkable. Cervical cord demonstrates normal course, caliber, and signal characteristics. No epidural fluid collection or hematoma is identified. At C2-3 there is no significant disc herniation or protrusion. No central canal or neural foraminal stenosis is demonstrated. At C3-4 there is no significant disc herniation or protrusion. Uncovertebral hypertrophy seen throughout the cervical spine. There is mild bilateral neural foraminal narrowing appreciated. No central canal stenosis is seen. At C4-5 there is slight disc bulge with uncovertebral hypertrophy. There is mild left neural foraminal narrowing and effacement of the ventral thecal sac. No central canal stenosis is seen At C5-6 there is broad-based central disc herniation with mild to moderate bilateral neural foraminal narrowing, left greater than right. Uncovertebral hypertrophy is identified. There is effacement of the ventral thecal sac. No central canal stenosis is seen. At C6-7 there is left subarticular disc protrusion is identified. There is moderate to severe left neural foraminal narrowing. Uncovertebral hypertrophy is appreciated. There is effacement of the ventral thecal sac. At C7-T1 there is central disc bulge with mild left neural foraminal narrowing. Uncovertebral hypertrophy is identified with effacement of the ventral thecal sac. IMPRESSION: Multilevel degenerative changes of the cervical spine are identified, most pronounced at C5-6 and C6-7. Uncovertebral hypertrophy is seen throughout the cervical spine Assessment & Plan Assessment & Plan (1) Other cervical disc degeneration at C6-C7 level: Code(s): M50.323 - Other cervical disc degeneration at C6-C7 level Category: Medical (2) Radiculopathy, cervical: Code(s): M54.12 - Radiculopathy, cervical region Category: Medical (3) Chronic pain syndrome: Code(s): G89.4 - Chronic pain syndrome Category: Medical (4) Spondylosis of cervical region without myelopathy or radiculopathy: Code(s): M47.812 - Spondylosis without myelopathy or radiculopathy, cervical region Category: Medical Plan Even with 1 electrode she reports today pain 0/10. She reports excellent mobility good activities of daily living excellent social interaction. The results of the diagnostic injection are very prominent see as above. The dressing change will be performed at home. Her relative expresses confidence of changing the dressing. Otherwise she is recommended to come here for nursing visits to change her dressing. Coding Level of Care Code Est Pt Level 3 (15139) Diagnoses Other cervical disc degeneration at C6-C7 level M50.323 Radiculopathy, cervical M54.12 Chronic pain syndrome G89.4 Spondylosis of cervical region without myelopathy or radiculopathy M47.812
[2024-12-31 10:50] VITALS: BP 144/79; PULSE 74; BMI 33.6
== END 2024-12-31 10:57 | disposition home or self-care (01) ==
PROVIDERS: PCP Physician Assistant; Visit Provider Anesthesiology
DX: M50.323 Other cervical disc degeneration at C6-C7 level (principal); M54.12 Radiculopathy, cervical region; G89.4 Chronic pain syndrome; M47.812 Spondylosis without myelopathy or radiculopathy, cervical region
CPT/HCPCS: 99024

== ENCOUNTER → 2024-12-31 10:40 | Outpatient (BNVA) | payer MEDICAID, SELFPAY | PROVIDERS: PCP Physician Assistant; Visit Provider Anesthesiology | DX: M50.323 Other cervical disc degeneration at C6-C7 level (principal); M47.812 Spondylosis without myelopathy or radiculopathy, cervical region; M54.12 Radiculopathy, cervical region; G89.4 Chronic pain syndrome | CPT/HCPCS: 99212 ==

== ENCOUNTER 2025-01-08 06:24 | Outpatient (REF) | payer MEDICAID, SELFPAY ==
--- NOTE | ~2025-01-08 | FL_ITS ---
EXAMINATION: FL GUIDANCE ONLY HISTORY: M47.812 - Spondylosis without myelopathy or radiculopathy, cervical region COMPARISON: None available. TECHNIQUE: Fluoroscopy time: 0.1 minutes. Cumulative Dose: 0.955 mGy. DAP: 0.0165 mGym2 Images: 1. FINDINGS: Images of the neck demonstrate leads in place. FL/FL guidance in treatment room IMPRESSION: Fluoroscopy during procedure. Please see procedure report for additional information. Electronically signed by: Oscar Timmons MD 01/08/2025 01:07 PM CHRISTINE GANT
--- OUTSIDE RECORDS SUMMARY | 2025-01-08 06:27 | XMS_ITS ---
Author Organization [facility] Address [address] [address] Care Team Providers Care Temp Recruiter Name Role Phone Salud Whittaker PA-C Primary Care Provider SA38 [facility] Program Status:Enrolled (Active) Start date:08/05/2023 Enrollment date:08/05/2023 Case Team Name Relationship Phone Meg Aguilar LPN (Responsible Staff) [phone] Continued Care and Services Coordination
--- OUTSIDE RECORDS SUMMARY | 2025-01-08 06:27 | XMS_ITS | Data Portability ---
Author Organization [place] - [facility], Allergy Address [address] [place] [address] Care Team Providers Care Birth Attendant Name Role Phone [facility] Primary Care Provider Assessment Encounter Date Assessment Date Assessment LastModified by Organization Details LastModified Time 10/03/2024 10/03/2024 58 year old Chadian speaking female presents to the office for [...] clearance for hearing aids. Significant other was poultry hatchery man Patient was seen and examined by Dr. [...] internal auditory canal, w/wo contrast 2023 024 [facility] [address] [place], [address], 10/03/2024 10:01:28 Medication Orders None recorded. Patient TargetsNo targets recorded. Patient InstructionsNo instructions recorded. Reason for Referral None Reported. Results Created Date Observation Date Name Description Value Unit Range Abnormal Flag Note LastModifiedBy Organization Detail LastModifiedTime 10/03/20 audio gram No observ ation record ed. BARCODE Not Available 2023 10:04:50 10/03/20 24 10/03/2024 audio gram No observ ation record ed. [email or web address] Not Available 04/2024 10:05:12 Result Notes None recorded. Problems Name Problem SNOMED Code Status Onset Date Resolution Date Notes Provider Name and Address Organization Details Recorded Time Sensorine ural hearing loss 28744617 Active 2019 Perceptiv e hearing loss NOS; Note: Date Diagnosed : 04/07/2020 3:18 PM (H90.5) Not Available [facility] 4 03:12:21 Sensorine ural hearing loss in right ear 33515260240 100 Active 2020 Sensorine ural hearing loss, unilatera l, right ear, with restricte d hearing on the contralat eral side; Note: Date Diagnosed : 07/13/2021 2:08 PM (H90.A21) Not Available [facility] 4 03:12:22 Lesion of oral mucosa [id number] 28392 Active 2019 Other lesions of oral mucosa; Note: Date Diagnosed : 04/07/2020 3:09 PM (K13.79) Not Available [facility] 4 03:12:22 Dizziness and giddiness 878687711 Active 2020 Dizziness and giddiness ; Note: Date Diagnosed : 07/13/2021 2:07 PM (R42) Not Available [facility] 4 03:12:22 Sensorine ural hearing loss of bilateral ears 826610749 Active 2023 Jo miles [place] - [facility] 4 09:31:14 Problem Notes None recorded. Procedures Surgical History Date Name Laterality Status Provider Name and Address Organization Details Recorded Time 10/03/20 24 Tympanometry (41354) completed Jo Lund [place] - [facility] 10/03/2024 09:31:07 10/03/20 24 [employer] Bone [employer] (61764) completed Jo Lund [place] - [facility] 10/03/2024 09:31:01 Imaging Results Imaging Date Name Status LastModified by Organiz ation Details LastModified Time 10/03/2024 audiogram completed BARCODE Information no t available 10/03/2024 10:04:50 10/03/2024 audiogram completed [email or web address] Information n ot available 10/03/2024 10:05:12 Procedure [...] mg tablet 10/03 completed Medicati on ID: [id number] D uration Value: 30 Brand Name: fexofena dine Sen d Method: E-Prescr ibed Sub s Allowed: subs OK Medic ationGen ericName : fexofena dine Not Available Not Available Not Available levofloxa ruma 250 mg tablet TOME EDENILSON TABLETA TODOS LOS D 10/03 completed Not Available Not Available Not Available omeprazol e 40 mg capsule,d elayed release active Medicati on ID: [id number] D uration Value: 30 Brand Name: omeprazo [...] mg tablet 10/03 completed Medicati on ID: [id number] D uration Value: 30 Brand Name: mirtazap ine Send Method: E-Prescr ibed Sub s Allowed: subs OK Speci al Instruct ion: TOME EDENILSON TABLETA POR V?A ORAL AL [employer]COSTARS E Medica tionGene ricName: mirtazap ine Not Available Not Available Not Available omeprazol e 20 mg capsule,d elayed release 10/03 completed Medicati on ID: [id number] D uration Value: 30 Brand Name: omeprazo [...] mg tablet 10/03 completed Medicati on ID: [id number] D uration Value: 10 Brand Name: baclofen Send Method: E-Prescr ibed Sub s Allowed: subs OK Medic ationGen ericName : baclofen Not Available Not Available Not Available Vitals Date Recorded Body height Body mass index (BMI) Body weight Provider Name and Address Organization Details Last Updated DateTime 10/03/2024 162.56 cm 31.1 kg/m2 58475.22 g Lizbet Brock [place] - [facility] 10/03/2024 09:37:32 Social History None recorded. Functional Status None recorded. Mental Status None recorded. Family History Nothing Reported. Medical History No medical history recorded. Gynecological HistoryNo gynecological history recorded. Obstetrics History GPAL:G 0 P 0 0 0 0 Past Encounters Encounter ID Performer Location Encounter Start Date Encounter Closed Date Diagnosis/Indication Diagnosis SNOMED-CT Code Diagnosis ICD10 Code Diagnosis Note [id number] ANDRES DESIR MD [facility] [address] [address] 10/03/2024 08:58:57 10/03/2024 10:04:15 Sensorineural hearing loss of bilateral ears [id number] H90.3 Audiologic al evaluation results: Right ear: [...] Emmanuel Member ID Guarantor Name 10/03/2024 2 [facility] - DOS ON OR AFTER 2023 - MEDICARE ADVANTAGE [place] & [place] (MEDICARE REPLACEMENT/AD VANTAGE - PPO) Yoana Blanca [id number] Yoana Blanca 10/03/2024 1 [place] [facility] Yoana Blanca [id number] Yoana Blanca Notes Date Note Type Note Provider Name and Address Organization Details Recorded Time 10/03/2024 text/html 58 year old Chadian speaking female presents to the office for [...] helps translate for her. Significant other was poultry hatchery man ANDRES ROWELL MD [address] [place] [address], [place], [address], [facility] - [facility] 10/03/2024 12:41:20 OBGyn Episode No OBEpisode recorded.
--- OUTSIDE RECORDS SUMMARY | 2025-01-08 06:27 | XMS_ITS | Clinical Summary ---
Author Organization [facility] Address [address] [place] [address] Care Team Providers Care Caddie Name Role Phone Salud Whittaker PA-C Primary Care Provider [phone] Source Comments PLEASE NOTE, if this patient [...] Comments) 08/15/2023 Medications TRELEGY ELLIPTA 100-62.5-25 mcg dsdvIndications:A cute bronchitis, unspecified organism INHALE UN SOPLIDO INTO THE LUNGS DAILY 08/13/20 21 Active cetirizine 10 mg cap Take 10 mg by mouth 04/23/20 22 Active albuterol sulfate 90 mcg/actuation inhaler Inhale 2 Puffs into the lungs 04/08/20 22 Active alcohol swabsIndications: Type 2 diabetes mellitus without complication, without long-term current use of insulin ([facility]) Use qd, dx E11.9 50 Each 11 05/27/20 23 Active lancets (FREESTYLE LANCETS) 28 gaugeIndications: Type 2 diabetes mellitus without complication, without long-term current use of insulin ([facility]) Freestyle lite lancets, use QD, dx E11.9 50 Each 05/27/20 23 Active blood sugar diagnostic stripsIndications :Type 2 diabetes mellitus without complication, without long-term current use of insulin ([facility]) 1 Each daily. Freestyle lite strips use QD, dx E11.9 50 Each 11 05/27/20 23 Active blood-glucose meter monitoring kitIndications:Ty pe 2 diabetes mellitus without complication, without long-term current use of insulin ([facility]) 1 Each daily. Freestyle lite meter, disp 1, lifetime need, dx E11.9 1 Each 05/27/20 23 Active blood pressure test kit-large Check BP 2 x weekly. 1 Kit 08/05/20 Active diclofenac sodium (VOLTAREN) 1 % gel Apply 2gm qhs to shoulder 100 g 2 08/05/20 23 Active VITAMIN B-12 2,500 mcg SL tabletIndications :Polyarthralgia DISSOLVE 1 TABLET POR VIA ORAL TODOS LOS MORGAN 07/05/20 23 Active famotidine (PEPCID) 20 mg tabletIndications :Dyspepsia Take 20 mg by mouth 06/23/20 23 Active BREO ELLIPTA 100-25 mcg/dose dsdvIndications:A sthma-COPD overlap syndrome ([facility]) TOME EDENILSON INHALACI N POR V A ORAL TODOS LOS D 08/01/20 23 Active INCRUSE ELLIPTA 62.5 mcg/actuation dsdvIndications:A sthma-COPD overlap syndrome (HCC-CMS) TOME EDENILSON INHALACI N POR V A ORAL TODOS LOS D Active sertraline (ZOLOFT) 100 mg tabletIndications :Bipolar affective disorder, remission status unspecified ([facility]) TOME EDENILSON TABLETA TODOS LOS D EN LA MA CHECO 08/09/20 23 Active phenytoin ER (DILANTIN) 100 mg ER capsuleIndication s:Bipolar affective disorder, remission status unspecified ([facility]) TOME 2 C PSULAS POR V A ORAL CADA DOCE HORAS 08/09/20 23 Active lidocaine-diphend yn-el-xvi-sim (FIRST-MOUTHWASH BLM) 525-91-002-40 mg/30 mL mouthwashIndicati ons:Aphthous ulcer Take 5 mL by mouth every 4 to 6 (four to six) hours as needed for mouth pain 237 mL 1 11/04/20 23 Active meloxicam (MOBIC) 15 mg tabletIndications :Polyarthralgia,N carmenza pain,Cervical radiculopathy TOME EDENILSON TABLETA TODOS [place] MORGAN 90 Tablet 1 02/13/20 24 Active lisinopriL 5 mg tablet TOME EDENILSON TABLETA TODOS LOS MORGAN AL ACOSTARSE 90 Tablet 3 04/18/20 24 Active dulaglutide (TRULICITY) 0.75 mg/0.5 mL pen injector INJECT 1 PEN SUBCUTANEOUSLY ONCE WEEKLY 2 mL 5 06/07/20 24 Active gabapentin (NEURONTIN) 100 mg capsuleIndication s:Chronic pain of multiple joints Take 1 Capsule by mouth 3 (three) times daily 270 Capsule 3 09/26/20 24 Active cyclobenzaprine (FLEXERIL) 10 mg tabletIndications :Chronic pain of multiple joints Take 1 Tablet by mouth nightly at bedtime 90 Tablet 1 09/26/20 24 Active butalbital-acetam inophen-caff 50-325-40 mg per tablet Take 1 Tablet by mouth once daily as needed for pain TOME 1 TABLETA POR VIA ORAL CUANDO SEA NECESARIO PARA EL DOLOR 20 Tablet 1 11/28/19 25 Active budesonide-formot David (SYMBICORT) 160-4.5 mcg/actuation inhalerIndication s:Asthma-COPD overlap syndrome ([facility]) Inhale 2 Puffs into the lungs 2 (two) times daily INHALE DANDO DOS SOPLIDOS INTO THE LUNGS DOS VECES AL SHANDRA 10.2 g 3 11/28/19 25 Active Active Problems Problem Noted Date Diagnosed Date Shoulder pain, bilateral 08/15/2023 Overview (08/15/2023): 08/2022 ORTHO eval--treated wit injections S/P AISLINN-BSO (total abdominal hysterectomy and bilateral salpingo-oophorectomy) 08/15/2023 Type 2 diabetes mellitus wit hout complication, without long-term current use of insulin ([facility]) 03/08/2023 Bipolar disorder ([facility]) 07/31/2022 Mild intermittent asthma, uncomplicated 07/31/20 Seizure ([facility]) 07/31/2022 Overview (08/15/2023): Dr Chela Billings, from [facility] (neurology)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 VEEG Dr Chela Billings, from [facility] (neurology)likely psyv=chigenic nonepileptis by VEEG, but [...] October 29, 2019 9:26 EST Encounter info: [id number], [facility], Discharged OutPatient, 10/29/2019 - 10/29/2019 Document Contains Addenda Addendum by Terrell Slater NP on November 06, 2019 14:35 EST (Verified) Received from a [facility] dated November 15 2017 through July [...] Slater NP Visit Information OUTPATIENT NEUROLOGY CONSULTATION [facility] DATE: 10/29/2019 CHIEF COMPLAINT: Headaches HISTORY OF PRESENT ILLNESS: The patient is a 53-year-old female Faroese speaking female with past medical hx of bipolar (following with [facility] every 3 months, & psychotherapist 1x /month ) Seizures - reportedly diagnosed at [facility] > 10 yrs ( was following [...] is accompanied by her boyfriend Yoshi. A vocational aide is available for this visit. 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 Sensory Exam: Light touch, [...] obtain records from previous treating neurologist at [facility] for review and then we can decide [...] to obtain records from prior neurologist at [facility]. The patient will follow-up in our clinic in 3 months . The patient knows to call us sooner if there are any problems. Terrell Slater N.P. Department of Neurology [facility] cc: Impression and Plan Comprehensive Plan Encounter Time Total length of time of the encounter 45 minutes Time spent counseling/coordinating care 35 minutes Discussed with: Marianna CABRALES, [place]. Report sent to all consultants: David JORGENSEN, [...] May 04, 2019 15:42 EDT Encounter info: [id number], [facility], Disch ES, 05/04/2019 - 05/04/2019 * [...] 489 mGy*cm. COMPARISON: CT 11/03/2018. 12/15/2018. FINDINGS: [place] Findings, Lines and Tubes: None. Visualized [...] and I agree with this report. WSN: [id number] Signature Line Dictated By: Lynette Arevalo MD [...] June 18, 2019 13:34 EDT Encounter info: [id number], [facility], Recurring OP, 05/29/2019 - [...] secondary to radial fracture, knee operation in [place]. Repair of right tibial and fibular fracture November 28, 2017 INTERVAL HISTORY: The patient comes in today for a followup visit, with the help of a vocational aide. Cyndi was last seen 6 months ago. [...] SOCIAL HISTORY: She quit smoking earlier in 2017 but went back to it again and [...] July 02, 2019 11:37 EDT Encounter info: [id number], [facility], One Time OP, 07/02/2019 - 07/02/2019 [...] in signal. The flow voids through the [place] are maintained, and there is [...] represent chronic microangiopathic/small vessel ischemic change. WSN: [id number] Signature Line Dictated By: Timothy Pena MD [...] March 20, 2019 10:37 EDT Encounter info: [id number], [facility], Disch Obv, 03/20/2019 - 03/22/2019 * Final Report [...] no focal bony lesion. 2. . WSN: [id number] Signature Line Dictated By: David Lee MD [...] October 29, 2019 9:26 EST Encounter info: [id number], [facility], Discharged OutPatient, 10/29/2019 - 10/29/2019 Document Contains Addenda Addendum by Terrell Slater NP on November 06, 2019 14:35 EST (Verified) Received from a [facility] dated November 15 2017 through July [...] Slater NP Visit Information OUTPATIENT NEUROLOGY CONSULTATION [facility] DATE: 10/29/2019 CHIEF COMPLAINT: Headaches HISTORY OF PRESENT ILLNESS: The patient is a 53-year-old female Faroese speaking female with past medical hx of bipolar (following with [facility] every 3 months, & psychotherapist 1x /month ) Seizures - reportedly diagnosed at [facility] > 10 yrs ( was following [...] is accompanied by her boyfriend Yoshi. A vocational aide is available for this visit. 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 has rec'd IV iron 2012; followed by dr cary for this H/O gastric bypass H/O nausea and vomiting Headache disorder Helicobacter pylori (H. pylori) infection Opioid dependence Postprandial epigastric pain Posttraumatic stress disorder S/P AISLINN-BSO (total abdominal hysterectomy and bilateral salpingo-oophorectomy) Seizure, followed by Dr Freida Kate [phone] Straining with stools Weight gain following gastric [...] Mouth, 2 times a day, neurologist in [facility] Phenytoin: 100 mg, 2 tabs 2 [...] was symmetric and MRC grade 5/5; Coordination: Xkubsj-xqnt-almmbq and Pnfq-gi-egqg testing was normal. Sensory Exam: Light touch, [...] obtain records from previous treating neurologist at [facility] for review and then we can decide [...] to obtain records from prior neurologist at [facility]. The patient will follow-up in our clinic in 3 months . The patient knows to call us sooner if there are any problems. Terrell Slater N.P. Department of Neurology [facility] cc: Impression and Plan Comprehensive Plan Encounter Time Total length of time of the encounter 45 minutes Time spent counseling/coordinating care 35 minutes Discussed with: Marianna CABRALES, [place]. Report sent to all consultants: David JORGENSEN, [place]. Immunizations Name Administration Dates Next Due Flu, Cell Culture based, Pre servative Free, 6m+, Flucelvax 09/01/2020,08/21/2019 Hep A, adult 11/13/2004,05/15/2004 Hep B, Adult/Adol (ENERGIX/RECOMBIVAX) 4,06/15/2004,05/15/2004 INFLUENZA, SEASONAL, INJECTABLE 09/15/20 15,12/05/2014,12/04/2007,10/14,11/13/2004 PFIZER COVID VACCINE, PURPLE CAP, 12+ 04/09/2021 PNEUMOCOCCAL CONJUGATE PCV 13 08/21/2019 PNEUMOCOCCAL POLYSACCHARIDE PPV23 02/11/2011 Td (adult) unspecified 07/02/2013 ZOSTER VACCINE, RECOMBINANT (SHINGRIX) ,05/28/2021,05/17/2018 Social History Tobacco Use Types Packs/Day Years [...] 01/29/2025 4:20 PM EST Office Visit [facility] [address] [place] [address] Salud Whittaker PA-C [address] [place] [address] Health Maintenance Due Date Last Done Comments [facility]I Counseling [address] Colonography 2010 Fecal DNA 2010 Flexible Sigmoidoscopy 2010 Imm-DTaP/Tdap/Td (1 - Tdap) 07/03/2013 07/02/2013 FIT/gFOBT 09/16/2017 09/16/2016 Diabetes Foot Exam 03/08/2024 03/08/2023 Diabetes Microalbumin (w/Creatinine) 03/08/2024 03/08/2023 [id number] ( season) 2024 04/01/2022, 04/30/2021, 04/09/2021 Imm-Influenza [...] Screen 11/28/2024 12/19/2023 Diabetes HbA1c 03/27/2025 09/26/2024, 12/0 06/2023, 11/04/2023, Additional history exists Annual Preventive Care Visit 09/26/2025, 03/08/2023, 08/26/2020, Additional history exists Lipid Screening 09/26/2025 09/26/2024, 12/06/2023, 11/04/2023, Additional history exists Serum Creatinine 09/26/2025 09/26/2024, 06/2023, 03/08/2023, Additional history exists Tobacco Screening 09/26/2025 09/26/2024 Pap Smear 05/24/2026 05/24/2023, 042 05/2023, 02/08/2007 HPV Screening 03/24/2028 03/24/2023 Cervical Cancer Screening 05/24/2028 Pap + HPV 05/24/2028 05/24/2023, 2 05/2023, 02/08/2007 Colonoscopy 02/10/2033 02/10/2023, 01/26, 09/16/2016 Colorectal Cancer Screening 02/10/2033 Imm-Zoster, Recombinant Completed 08/05/20, 05/28/2021, 05/17/2018 HIV Screening Completed 09/26/2024, 07/30, 08/26/2020 Hepatitis C Screening Completed 09/26/2024 , 09/26/2024, 08/26/2020 Cervical Ablation/Cold-Knife Conization Discontinued Cervical Cryotherapy Discontinued Colposcopy Discontinued Endometrial Biopsy Discontinued Excision/Leep Discontinued HPV Genotyping Discontinued Vaginal Pap Discontinued Vulvoscopy Discontinued Goals Goal Patient Goal Type Associated Problems Recent Progress Patient-Stated? Author Blood Pressure < 120/80 Blood Pressure 128/80( 024 10:31 AM EDT) No Meg Aguilar LPN Procedures Procedure Name Priority Date/Time Associated Diagnosis Comments REFERRAL SCANNED DOCUMENT 01/03/2025 3:00 AM EST REFERRAL SCANNED DOCUMENT 12/31/2024 3:00 AM EST REFERRAL SCANNED DOCUMENT 12/25/2024 3:00 AM EST REFERRAL SCANNED DOCUMENT 10/26/2024 3:00 AM EST REFERRAL SCANNED DOCUMENT 10/10/2024 3:00 AM EST HIV 1/2 AG & AB W/RFLX (4TH GEN) Routine 09/26/2024 1:05 PM EDT Routine general medical examination at a health care facility Type 2 diabetes mellitus without complication, without long-term current use of insulin ([facility]) Hand arthritis Essential hypertension, benign Mixed headache Left hip pain STD exposure COMPREHENSIVE METABOLIC PANEL Routine 09/26/2024 1:05 PM EDT Routine general medical examination at a [facility] Type 2 diabetes mellitus without complication, without long-term current use of insulin ([facility]) Hand arthritis Essential hypertension, benign Mixed headache Left hip pain STD exposure HEPATITIS C AB W/RFLX HCV RNA, QT, RT PCR Routine 09/26/2024 1:05 PM EDT Routine general medical examination at a [facility] Type 2 diabetes mellitus without complication, without long-term current use of insulin ([facility]) Hand arthritis Essential hypertension, benign Mixed headache Left hip pain STD exposure LIPID PANEL Routine 09/26/2024 1:05 PM EDT Routine general medical examination at a [facility] Type 2 diabetes mellitus without complication, without long-term current use of insulin ([facility]) Hand arthritis Essential hypertension, benign Mixed headache Left hip pain STD exposure HEMOGLOBIN GLYCOSYLATED A1C Routine 09/26/2024 1:05 PM EDT Routine general medical examination at a [facility] Type 2 diabetes mellitus without complication, without long-term current use of insulin ([facility]) Hand arthritis Essential hypertension, benign Mixed headache Left hip pain STD exposure MAMMO DIGITAL SCREEN SI[place] W CAD 3D Routine 11/12/2023 3:00 AM EST Breast cancer screening by mammogram PAP SMEAR W/HPV, ABSTRACTED Routine 03/24/2023 10:00 AM EDT MICROALBUMIN/CREATININ E RATIO, URINE, RANDOM Routine 03/08/2023 3:27 PM EDT Routine general medical examination at a [facility] Asthma-COPD overlap syndrome ([facility]) Essential hypertension, benign Moderate persistent asthma without complication Lower urinary tract symptoms (LUTS) HISTORIC COLONOSCOPY 02/10/2023 3:00 AM EDT from Last 3 Months or Most Recently Relevant to Health Maintenance Results * REFERRAL SCANNED DOCUMENT (01/03/2025 3:00 AM EST) Only the most recent of5 resultswithin the time period is included. 01/03/2025 3:00 AM EST Salud Whittaker PA-C SCAN REFERRAL Final Result * HEPATITIS C AB W/RFLX HCV RNA, QT, RT PCR (09/26/2024 1:05 PM EDT) HEPATITIS C ANTIBODY NON-REACT MARY LOU NON-REACT MARY LOU [facility] Comment: HCV antibody was non-reactive. There is no laboratory evidence of HCV infection. In most cases, no further action is required. However, if recent HCV exposure is suspected, a test for HCV RNA (test code 90665) is suggested. For additional information please refer to http://education.Wellocities/faq/SQQ00x9 (This link is being provided for informational/ educational purposes only.) Blood Blood / Unknown 09/26/2024 1 :05 PM EDT 09/26/2024 1:06 PM EDT Narrative [facility] - 10/04/2024 9:33 AM EST FASTING:NO Salud Whittaker PA-C LAB - BLOOD DRAW Edited Resu lt - Final [facility] [address] [place] [address], [facility] [address] [address] * HIV 1/2 AG & AB W/RFLX (4TH GEN) (09/26/2024 1:05 PM EDT) HIV AG/AB, 4TH GEN NON-REAC TIVE NON-REAC TIVE [facility] Comment: HIV-1 antigen and HIV-1/HIV-2 antibodies were [...] ?? For additional information please refer to http://education.[employer]ane.[employer]/faq/BNU120 (This link is being provided for informational/ educational purposes only.) The performance of this assay has not been clinically validated in patients less than 2 years old. Blood Blood / Unknown 09/26/2024 1 :05 PM EDT 09/26/2024 1:06 PM EDT Narrative [facility] - 10/04/2024 9:33 AM EST FASTING:NO Salud Whittaker PA-C LAB - BLOOD DRAW Final Resul t Performing Organization Address [facility] de Phone Number [facility] [address] [place] [address], [facility] [address] [address] * HEMOGLOBIN GLYCOSYLATED A1C (09/26/2024 1:05 PM EDT) HEMOGLOBIN A1C 5.4 <5.7 % of total Hgb [facility] P[facility] Comment: For the purpose of screening for the presence of diabetes: <5.7% ? Consistent with the absence of diabetes 5.7-6.4% ?Consistent with increased risk for diabetes ?(prediabetes) > or =6.5% ??Consistent with diabetes This assay result is consistent with a decreased risk of diabetes. Currently, no consensus exists regarding use of hemoglobin A1c for diagnosis of diabetes in children. According to [place] Diabetes Association (ADA) guidelines, hemoglobin A1c <7.0% represents optimal control in non- diabetic patients. Different metrics may apply to specific patient populations. Standards of Medical Care in Diabetes(ADA). ?? Blood Blood / Unknown 09/26/2024 1 :05 PM EDT 09/26/2024 1:06 PM EDT Narrative [facility] - 10/04/2024 9:33 AM EST FASTING:NO Salud Whittaker PA-C LAB - BLOOD DRAW Edited Resu lt - Final Performing Organization Address City/[facility]/ZIP Co de Phone Number [facility] [address] [address], [facility] [address] [address] * (ABNORMAL) LIPID PANEL (09/26/2024 1:05 PM EDT) CHOLESTEROL, TOTAL 208(H) <200 mg/dL [facility] HDL CHOLESTEROL 90 > OR = 50 mg/dL [facility] TRIGLYCERIDES 117 <150 mg/dL [facility] LDL-CHOLESTEROL 97 99 mg/dL (calc) [facility] Comment: Reference range: <100 Desirable range <100 mg/dL for primary prevention; ?? <70 mg/dL for patients with CHD or diabetic patients with > or = 2 CHD risk factors. LDL-C is now calculated using the Ricky calculation, which is a validated novel method providing better accuracy than the Friedewald equation in the estimation of LDL-C. Juno TRIANA et al. OMAR. 2013;310(19): 3199-6876 (http://education.[employer]/faq/IHU443) CHOL/HDLC RATIO 2.3 <5.0 (calc) [facility] NON-HDL CHOLESTEROL 118 <130 mg/dL (calc) [facility] Comment: For patients with diabetes plus 1 major ASCVD risk factor, treating to a non-HDL-C goal of <100 mg/dL (LDL-C of <70 mg/dL) is considered a therapeutic option. Blood Blood / Unknown 09/26/2024 1 :05 PM EDT 09/26/2024 1:06 PM EDT Narrative [facility] - 10/04/2024 9:33 AM EST FASTING:NO us Salud Whittaker PA-C LAB - BLOOD DRAW Final Resul t [facility] [address] [address], [facility] [address] [place] [address] * (ABNORMAL) COMPREHENSIVE METABOLIC PANEL (09/26/2024 1:05 PM EDT) GLUCOSE 72 65 - 139 mg/dL [facility] Comment: ?Non-fasting reference interval UREA NITROGEN (BUN) 11 7 - 25 mg/dL [facility] CREATININE (blood) 0.53 0.50 - 1.03 mg/dL [facility] EGFR 107 > OR = 60 mL/min/1. 73m2 [facility] BUN/CREATININE RATIO SEE NOTE: [facility] Comment: ?? Not Reported: BUN and Creatinine are within ?? reference range. ? SODIUM 138 135 - 146 mmol/L [facility] POTASSIUM 4.5 3.5 - 5.3 mmol/L [facility] CHLORIDE 103 98 - 110 mmol/L [facility] CARBON DIOXIDE 27 20 - 32 mmol/L [facility] CALCIUM 9.4 8.6 - 10.4 mg/dL [facility] PROTEIN, TOTAL 6.6 6.1 - 8.1 g/dL [facility] ALBUMIN 4.0 3.6 - 5.1 g/dL [facility] GLOBULIN 2.6 1.9 - 3.7 g/dL (calc) [facility] ALBUMIN/GLOBULI N RATIO 1.5 1.0 - 2.5 (calc) [facility] BILIRUBIN, TOTAL 0.2 0.2 - 1.2 mg/dL [facility] ALKALINE PHOSPHATASE 183(H) 37 - 153 U/L [facility] AST 17 10 - 35 U/L [facility] ALT 15 6 - 29 U/L [facility] Blood Blood / Unknown 09/26/2024 1 :05 PM EDT 09/26/2024 1:06 PM EDT Narrative [facility] - 10/04/2024 9:33 AM EST FASTING:NO us Salud Whittaker PA-C LAB - BLOOD DRAW Edited Resu lt - Final [facility] [address] [address], [facility] [address] [place] [address] * MAMMO DIGITAL SCREEN [facility] W CAD 3D (11/12/2023 3:00 AM EST) 11/12/2023 3:00 AM EST Salud Whittaker PA-C IMG MAMMO Edited Resul t - Final * PAP SMEAR W/HPV (03/24/2023 10:00 AM EDT) PAP SMEAR INTERPRETATION NORMAL NORMAL [facility] HPV (HUMAN PAPILLOMA) NEGATIVE NEGATIVE [facility] HPV TYPE [address] [facility] HPV TYPE [address] [facility] Swab 03/24/2023 10:0 0 AM EDT Impressions [facility] - 05/24/2023 10:31 AM EDT Negative for squamous intraepithelial lesion and malignancy High risk HPV assay: Negative Provider [facility] - NO BLOOD DRAW Final Result Performing Organization Address City/State/[facility] Co de Phone Number [facility] [address] [place] [address], * MICROALBUMIN/CREATININE RATIO, URINE, RANDOM (03/08/2023 3:27 PM EDT) CREATININE, RANDOM URINE 122 20 - 275 mg/dL [facility] MICROALBUMIN 0.6 mg/dL [facility] [employer] [facility] Comment: Reference Range Not established MICROALBUMIN/CREA TININE RATIO, RANDOM URINE 5 <30 mcg/mg creat [facility] [employer] [facility] Comment: The ADA defines abnormalities in albumin [...] - NO BLOOD DRAW Final Re sult [facility] [address] [address], [facility] [address] [place] [address] * HISTORIC COLONOSCOPY (02/10/2023 3:00 AM EDT) 02/10/2023 3:00 AM EDT Salud Whittaker PA-C PROCEDURES Final Result from Last 3 Months or Most Recently Relevant to Health Maintenance Insurance [employer] Care Teams Caddie Relationship Specialty Start Date End Date Salud Whittaker PA-C [address] [place] [phone] PCP - General Internal Medicine 03/15/19
--- OUTSIDE RECORDS SUMMARY | 2025-01-08 06:27 | XMS_ITS | Clinical Summary ---
Author Organization 175 [facility] Address [address] [place] [address] Phone Care Team Providers Care Mold Designer Name Role Phone Salud Whittaker Primary Care Provider [phone] Allergies Active Allergy Reactions Criticality Noted Date Comments Amitriptyline Itching 03/19/2019 Dulaglutide 05/07/2021 No weight loss Hydromorphone Itching 03/19/2019 Orphenadrine Itching 03/19/2019 Topiramate 08/15/2023 Other reaction(s): Other (See Comments) Medications albuterol HFA (Ventolin HFA) 90 mcg/actuation inhaler INHALE 2 PUFFS INTO THE LUNGS 4 TIMES DAILY NEEDED FOR COUGH OR WHEEZING. 4 Active cetirizine (ZyrTEC) 10 mg tablet TOME EDENILSON TABLETA TODOS LOS MORGAN 4 Active fluticasone propionate (FLONASE) 50 mcg/actuation nasal spray 2 Sprays by Nasal route daily. 4 Active montelukast (SINGULAIR) 10 mg tablet TOME EDENILSON TABLETA TODOS LOS MORGAN AL ACOSTARSE 4 Active fluticasone-ume clidinium-vilan terol (Trelegy Ellipta) 100-62.5-25 mcg inhaler Inhale 1 Puff into the lungs daily. Rinse mouth after administration . 4 Active gabapentin (NEURONTIN) 100 mg capsule Take 1 Capsule by mouth. 4 Active diclofenac (VOLTAREN) 1 % topical gel Apply 2gm qhs to shoulder 3 Active ipratropium-alb uteroL (DUONEB) 0.5-2.5 mg/3 mL nebulizer solution Inhale 3 mL into the lungs 2 times daily. 4 Active meloxicam (MOBIC) 15 mg tablet Take 1 tablet (15 mg total) by mouth 1 (one) time each day. 3 Active famotidine (PEPCID) 20 mg tablet Take 1 Tablet by mouth 2 times daily as needed for Heartburn. 3 Active FREESTYLE LANCETS MISC 1 Strip 3 times daily. 0 Active blood sugar diagnostic (FreeStyle Lite Strips) test strip TO TEST BLOOD GLUCOSE THREE TIMES DAILY 1 Active dulaglutide (Trulicity) 0.75 mg/0.5 mL pen injector injection INJECT 1 PEN ONCE WEEKLY 2 Active cyanocobalamin, vitamin B-12, 2,500 mcg tablet, sublingual DISSOLVE 1 TABLET POR V A ORAL TODOS LOS D 1 Active alcohol swabs pads, medicated USE SEG N LO INDICADO HEMALATHA VECES AL D A 1 Active lisinopriL (PRINIVIL,ZESTR IL) 5 mg tablet Take 1 tablet (5 mg total) by mouth 1 (one) time each day. Active phenytoin (DILANTIN) 100 mg ER capsule Take by mouth 2 times daily. Active OXcarbazepine (TRILEPTAL) 600 mg tablet Take 600 mg by mouth 2 times daily. Active butalbital-acet aminophen-caffe ine-codeine (FIORICET WITH CODEINE) 31-317-59-30 mg per capsule Take 1 capsule by mouth every 4 hours as needed. Active aluminum-magnes ium hydroxide-simet hicone (Delmi-Lanta) 200-200-20 mg/5 mL suspension TAKE 15 ML BY MOUTH 4 TIMES DAILY NEEDED FOR OTHER. 769 mL 11 4 Active pantoprazole (PROTONIX) 20 mg EC tablet TAKE 2 TABLETS BY MOUTH EVERY MORNING ON EMPTY STOMACH, WAIT 30MIN THEN EAT TO ACTIVATE THE MED 180 tablet 1 4 Active Active Problems Problem Noted Date Diagnosed [...] Azithromycin for 5 days 3. Robitussin orally toxw-ivl-gfpadnx for cough 4. Continue only with Symbicort [...] 10:30 AM EST Office Visit Pulmonolgy - [address] [place] [address] Salud Mcgill NP [place] (Primary [...] Date Site/Laterality Comments GASTRIC BYPASS N/A PROCEDURE: SD GASTRIC RSTCV W/BYP W/SM INT RCNSTJ LIMIT ABSRPJ KNEE SURGERY Bilateral PROCEDURE: HISTORICAL KNEE SURGERY KIDNEY STONE SURGERY PROCEDURE: SD NEPHROLITHOTOMY REMOVAL CALCULUS BREAST REDUCTION PROCEDURE: SD BREAST REDUCTION COLONOSCOPY PROCEDURE: HISTORICAL COLONOSCOPY Medical [...] DX:Diabetes mellitus type 2, controlled, with complications ([facility]) Esophageal reflux DX:Esophageal reflux Family History Medical [...] drink = 0.6 oz pur e alcohol) Comments Unknown Sex and Gender Information Value Date Recorded Sex Assigned at Not on file Legal Sex Female 1:45 AM EST Gender Identity Not on file Sexual Orientation Not on file Obstetrics History Last Filed [...] 2:00 PM EDT Office Visit Pulmonolgy - [place] [address] [facility] [address] [place] [phone] Salud Mcgill, JAMEEL 175 [facility] [address] [place] [address] Health Maintenance Due Date Last Done Comments [...] SCREENING Routine 08/26/2020 HIV SCREENING Routine 08/26/2020 LEILA SCREENING DIGITAL Routine 08/08/2019 5:14 PM EDT Encounter for screening mammogram for malignant neoplasm of breast from Last 3 Months or Most Recently Relevant to Health Maintenance Results * CT LUNG SCREENING LOW DOSE (04/17/2024 4:53 PM EDT) Anatomical Region Laterality Modality Computed Tomogra phy 04/16/2024 1:57 PM EDT Narrative 04/17/2024 4:53 PM EDT [facility] Diagnostic Imaging Department [address] [place], [place] [id number] Patient: ??EFE PIERRE ?/Age/Sex: 1965 - 58 - F Unit#: ??[id number] ? Location/Status: ??SPDICATLS/REG CLI ? Mnemonic/Ordering Site: [...] Procedure Note Karey Jain MD - 07/16/2024 [facility] Diagnostic Imaging Department [address] [place] [id number] Patient: EFE PIERRE/Age/Sex: 1965 - 58 - F Unit#: [id number] Location/Status: SPDICATLS/REG CLI Mnemonic/Ordering Site: [facility] [place] Order[place] Physician: FEDE MONTEZ MD CT Lung [...] 1653 Fede Montez MD IMG CT PROCEDURES Final Result * Annual BMP Blood Test (11/04/2023) Annual BMP Blood Test abstracted Historical Provider HEALTH MAINTENANCE Final Result * Hemoglobin A1c (11/04/2023) Hemoglobin A1C 0.0 % Comment:abstracted, no inter pretation Blood Venous blood specimen / Unknown Result [facility] Provider LAB BLOOD ORDERABLES Vianca l Result * Lipid panel (11/04/2023) [facility] Triglycerides 0 mg/dL Comment:abstracted, no inter pretation Cholesterol 0 mg/dL Comment:abstracted, no inter pretation HDL 0 mg/dL Comment:abstracted, no inter pretation LDL Cholesterol 0 mg/dL Comment:abstracted, no inter pretation Blood Venous blood specimen / Unknown Result [facility] Provider LAB BLOOD ORDERABLES Vianca l Result * Cervical Cancer Screening: HPV (03/24/2023) [facility] Cervical Cancer Screening: HPV abstracted, no interpretation Result [facility] Provider HEALTH MAINTENANCE Final Result * Urine Albumin Creatinine Ratio (03/08/2023) [facility] Urine Albumin Creatinine Ratio abstracted Result [facility] Provider HEALTH MAINTENANCE Final Result * Colonoscopy (02/10/2023) [facility] Colonoscopy abstracted, no interpretation Anatomical Region Laterality Modality Other Result [facility] Provider HEALTH MAINTENANCE Final Result * HIV Screening (08/26/2020) [facility] HIV Screening abstracted Result [facility] Provider HEALTH MAINTENANCE Final Result * Hepatitis C Screening (08/26/2020) [facility] Hepatitis C Screening abstracted Result [facility] Provider HEALTH MAINTENANCE Final Result * LEILA SCREENING DIGITAL (08/08/2019 5:14 PM EDT) Anatomical Region Laterality Modality Mammography 08/08/2019 1:51 PM EDT Narrative 08/08/2019 5:14 PM EDT [facility] Diagnostic Imaging Department [address] [place] [id number] Patient: ??EFE PIERRE ?/Age/Sex: 1965 - 53 - F Unit#: ??[id number] ? Location/Status: ??SPDIMAM/REG CLI ? Mnemonic/Ordering Site: ??[facility]AM Ordering Physician: ??MARIETTA HERNANDEZ APRN [facility] Screening Digital - 08/08/19 - 1421 EXAM: [facility] Screening Digital EXAM DATE AND TIME: 08/08/2019 2:22 PM HISTORY: ??Screening. Reduction mammoplasty in 2007. Maternal grandmother had breast carcinoma. COMPARISON: ??08/29/14, 05/24/13, 04/30/11 TECHNIQUE: CC and MLO views of both breasts were obtained using full field digital mammography. Bilateral digital breast tomosynthesis was performed in the MLO projection. Computer aided detection with the aaTag 7.2-H was employed. TISSUE DENSITY: b. There [...] Routine screening mammogram BILATERAL in 1 year. [address], [address] 4742F, 5225F Dictating Physician: ??AMALIA BALLARD MD Electronically Signed by: ??AMALIA BALLARD MD Dic Date/Time: ??08/08/191712 Sign date/Time: ??08/08/191713 Procedure Note Amalia Ballard - 11/17/2022 [facility] Diagnostic Imaging Department [address] [place] [address] Patient: HOWE EFE BERNARD./Age/Sex: 1965 - 53 - F Unit#: [id number] Location/Status: [facility] CLI Mnemonic/Ordering Site: [facility] Ordering Physician: MARIETTA HERNANDEZ APRN [facility] Screening Digital - 08/08/19 - 1421 EXAM: [facility] Screening Digital EXAM DATE AND TIME: 08/08/2019 2:22 PM HISTORY: Screening. Reduction mammoplasty in 2007. Maternal grandmotherhad breast carcinoma. COMPARISON: 08/29/14, 05/24/13, 04/30/11 TECHNIQUE: CC and MLO views of both breasts were obtained using fullfield digital mammography. Bilateral digital breast tomosynthesis was performedin the MLO projection. Computer aided detection with the aaTag 7.2-Hwas employed. TISSUE DENSITY: b. There are scattered [...] Routine screening mammogram BILATERAL in 1 year. [address], [address]851 3342F, 7025F Dictating Physician: AMALIA BALLARD MD Electronically Signed by: AMALIA BALLARD MD Dic Date/Time: 08/08/191712 Sign date/Time: 08/08/191713 Marietta Hernandez APN IM BI PROCEDURES Final Result from Last 3 Months or Most Recently Relevant to Health Maintenance Insurance MEDICAID - [place] Care Teams Mold Designer Relationship Specialty Start Date End Date Salud Whittaker PA [address] [place] [address] PCP - General Internal Medicine 06/05/21
== END 2025-01-08 06:25 | disposition home or self-care (01) ==
LOC: CF 06:24
PROVIDERS: Visit Provider Anesthesiology
DX: M47.812 Spondylosis without myelopathy or radiculopathy, cervical region (principal); M50.323 Other cervical disc degeneration at C6-C7 level; M54.12 Radiculopathy, cervical region; G89.4 Chronic pain syndrome
CPT/HCPCS: 64555; J2003

== ENCOUNTER 2025-01-17 11:02 | Outpatient (AMB) | payer MEDICAID, SELFPAY ==
--- NOTE | 2025-01-17 11:09 | A.OFFVIS_ITS ---
Vital Signs 01/17/25 11:32 Height 5 ft 0.3 in Weight 178 lb 6 oz BMI 34.5 BP 130/86 Blood Pressure Location Lt brachial Position Sitting Pulse 85 Pulse Source Pulse Oximeter Pulse Oximetry (%) 97 Oxygen Delivery Method Room Air Intake Visit Reasons: LEFT C4 SPRINT TRIAL/01/08/25 Allergies No Known Allergies Allergy (Verified 01/17/25 11:35) HPI Comments Details: Yoana is back in my office after sprint PNS insertion completion bilaterally. She reports today very good pain relief. She reports that pain is 3/10. She reports better mobility better activities of daily living better social interactions. Her significant other is changing her dressings at home. I recommended her to schedule appointment with me in 6 weeks. We will pull out the electrodes. Prior: diagnostic medial branch block C4-C5 C6 bilateral which was performed on 10/02/2024. Prior: very pleasant 58 years old female who presents in my office with complains on pain in the cervical spine with radiation into bilateral upper extremities all the way to her mid forearms bilaterally. She denies radiation of the pain into wrists fingers or hands. She reports the pain mostly axial and radiation of the pain is on the background. She admits pain aggravation with flexing had backwards. She admits tenderness on palpation in paraspinal regions in the cervical spine. Therefore the pain of the patient is most likely facetogenic in nature. I offered the patient diagnostic medial branch block C4- C5 C6 bilateral to help her pain. I explained the nature of diagnostic block to the patient. She had extensive physical therapy which alleviated her pain minimally. She has not satisfied with results of physical therapy. She tried OTC NSAIDs to help her pain however those medications do not help her pain. On the MRI of the cervical spine there are some changes dictated as below. All of those changes could be possible pain generators for this patient. [facility] Social History (Updated 03/29/24 @ 15:24 by Nohemi Church) Substance Use Type: Marijuana Review of Systems Const All systems reviewed & are unremarkable except as noted in HPI and below ENT Reports Normal hearing present Neuro Reports Normal hearing present, Denies Abnormal speech present, Denies confusion and Denies Sensory deficit (Neuro) Psych Denies confusion Physical Exam Vital Signs: Last Vital Signs Pulse 85 01/17/25 11:32 BP 130/86 01/17/25 11:32 Pulse Ox 97 02/20/25 11:32 Oxygen Delivery Method Room Air 01/17/25 11:32 BMI result Body Mass Index 34.5 Const General: no acute distress; No confusion Orientation/consciousness: patient oriented x3 and No confusion Eyes General: appearance normal, both eyes and all related structures Pupils: Equal, round and reactive pupils present EOM: EOMs intact bilaterally Neck Other: Limited range of motion cervical spine however with improvement today. Denies incontinence with urine and/or stool. Denies urinary retention. Denies weakness of bilateral lower extremities. Admits pain in bilateral knees and general fatigue. Tenderness on palpation in paraspinal spinal region of cervical spine. Bicep tendon reflexes and triceps tendon reflexes are brisk +2 however no clonus is observed. Neck: No full ROM and No supple Chest Chest palpation & inspection: normal inspection of the chest Resp Effort & Inspection: normal respiratory effort, able to speak in complete sentences, normal respiratory pattern, no audible wheezes and no cough Cardio Jugular venous distension: no JVD GI Inspection: Yes normal to inspection Neuro General: patient oriented x3, gait normal and No confusion Cranial nerves: Yes CN's II-XII intact bilaterally, Yes Equal, round and reactive pupils present, Yes Normal hearing present and Yes Ability to bilaterally elevate shoulders present Speech: No Abnormal speech present Gait exam (Neuro): Normal gait present Motor exam (neuro): 5/5 motor strength present throughout Sensory Exam: No Sensory deficit (Neuro) Extrem General: No pedal edema Psych Speech and movement: Normal speech and movement present Affect: normal affect Attitude: cooperative Thought process: Normal thought process present Thought content: Normal thought content present Insight: Good insight present (Psych) Judgement: Good judgement present (Psych) Assessment & Plan Assessment & Plan (1) Other cervical disc degeneration at C6-C7 level: Code(s): M50.323 - Other cervical disc degeneration at C6-C7 level Category: Medical (2) Radiculopathy, cervical: Code(s): M54.12 - Radiculopathy, cervical region Category: Medical (3) Chronic pain syndrome: Code(s): G89.4 - Chronic pain syndrome Category: Medical (4) Spondylosis of cervical region without myelopathy or radiculopathy: Code(s): M47.812 - Spondylosis without myelopathy or radiculopathy, cervical region Category: Medical Plan Patient is doing very good after implantation of the completion of the systems sprint PNS. She will be seen in 6 weeks for removal of the electrodes. She was explained that sprint procedure can not be repeated once in 6 months. Coding Level of Care Code Est Pt Level 3 (62474) Diagnoses Other cervical disc degeneration at C6-C7 level M50.323 Radiculopathy, cervical M54.12 Chronic pain syndrome G89.4 Spondylosis of cervical region without myelopathy or radiculopathy M47.812
[2025-01-17 11:32] VITALS: BP 130/86; PULSE 85; O2SAT 97; BMI 34.5
--- OUTSIDE RECORDS SUMMARY | 2025-01-17 12:22 | XMS_ITS | Data Portability ---
Author Organization [place] - [facility], Allergy Address [address] [facility] [address] [place] [address] Care Team Providers Care Grocery Packer Name Role Phone [facility] Primary Care Provider Assessment Encounter Date Assessment Date Assessment LastModified by Organization Details LastModified Time 10/03/2024 10/03/2024 58 year old New Zealander speaking female presents to the office for [...] clearance for hearing aids. Significant other was translator and interpreter Patient was seen and examined by Dr. [...] canal, w/wo contrast [address] [facility] [address] [place], [address], 10/03/2024 10:01:28 Medication Orders None recorded. Patient TargetsNo targets recorded. Patient InstructionsNo instructions recorded. Reason for Referral None Reported. Results Created Date Observation Date Name Description Value Unit Range Abnormal Flag Note LastModifiedBy Organization Detail LastModifiedTime 10/03/20 audio gram No observ ation record ed. BARCODE Not Available 2023 10:04:50 10/03/20 24 10/03/2024 audio gram No observ ation record ed. [email or web address] Not Available 04/2024 10:05:12 Result Notes None recorded. Problems Name Problem SNOMED Code Status Onset Date Resolution Date Notes Provider Name and Address Organization Details Recorded Time Sensorine ural hearing loss 03105451 Active 2019 Perceptiv e hearing loss NOS; Note: Date Diagnosed : 04/07/2020 3:18 PM (H90.5) Not Available [facility] 4 03:12:21 Sensorine ural hearing loss in right ear 37378851175 100 Active 2020 Sensorine ural hearing loss, unilatera l, right ear, with restricte d hearing on the contralat eral side; Note: Date Diagnosed : 07/13/2021 2:08 PM (H90.A21) Not Available [facility] 4 03:12:22 Lesion of oral mucosa 83529644363 68957 Active 2019 Other lesions of oral mucosa; Note: Date Diagnosed : 04/07/2020 3:09 PM (K13.79) Not Available [facility] 4 03:12:22 Dizziness and giddiness 400931128 Active 2020 Dizziness and giddiness ; Note: Date Diagnosed : 07/13/2021 2:07 PM (R42) Not Available [facility] 4 03:12:22 Sensorine ural hearing loss of bilateral ears 075347097 Active 2023 Jo miles [place] - [facility] 4 09:31:14 Problem Notes None recorded. Procedures Surgical History Date Name Laterality Status Provider Name and Address Organization Details Recorded Time 10/03/20 24 Tympanometry (60369) completed Jo Lund [place] - [facility] 10/03/2024 09:31:07 10/03/20 24 [employer] (06307) completed Jo Lund [place] - [facility] 10/03/2024 09:31:01 Imaging Results Imaging Date Name Status LastModified by Organiz ation Details LastModified Time 10/03/2024 audiogram completed BARCODE Information no t available 10/03/2024 10:04:50 10/03/2024 audiogram completed [email or web address] Information n ot available 10/03/2024 10:05:12 Procedure [...] mg tablet 10/03 completed Medicati on ID: [id number] D uration Value: 30 Brand Name: fexofena dine Sen d Method: E-Prescr ibed Sub s Allowed: subs [place] Medic ationGen ericName : fexofena dine Not Available Not Available Not Available levofloxa ruma 250 mg tablet TOME EDENILSON TABLETA TODOS LOS D 10/03 completed Not Available Not Available Not Available omeprazol e 40 mg capsule,d elayed release active Medicati on ID: [id number] D uration Value: 30 Brand Name: omeprazo [...] mg tablet 10/03 completed Medicati on ID: [id number] D uration Value: 30 Brand Name: mirtazap ine Send Method: E-Prescr ibed Sub s Allowed: subs [place] Speci al Instruct ion: TOME EDENILSON TABLETA POR V?A ORAL AL ACOSTARS E Medica tionGene ricName: mirtazap ine Not Available Not Available Not Available omeprazol e 20 mg capsule,d elayed release 10/03 completed Medicati on ID: [id number] D uration Value: 30 Brand Name: omeprazo [...] 1 TABLET POR VIA ORAL TODOS LOS OMRGAN active Not Available Not Available No t [...] mg tablet 10/03 completed Medicati on ID: [id number] D uration Value: 10 Brand Name: baclofen Send Method: E-Prescr ibed Sub s Allowed: subs [place] Medic ationGen ericName : baclofen Not Available Not Available Not Available Vitals Date Recorded Body height Body mass index (BMI) Body weight Provider Name and Address Organization Details Last Updated DateTime 10/03/2024 162.56 cm 31.1 kg/m2 33611.22 g Lizbet Brock [place] - [facility] 10/03/2024 09:37:32 Social History None recorded. Functional Status None recorded. Mental Status None recorded. Family History Nothing Reported. Medical History No medical history recorded. Gynecological HistoryNo gynecological history recorded. Obstetrics History GPAL:G 0 P 0 0 0 0 Past Encounters Encounter ID Performer Location Encounter Start Date Encounter Closed Date Diagnosis/Indication Diagnosis SNOMED-CT Code Diagnosis ICD10 Code Diagnosis Note [id number] ANDRES DESIR MD [facility] [address] [phone] 10/03/2024 08:58:57 10/03/2024 10:04:15 Sensorineural hearing loss of bilateral ears 042050283 H90.3 Audiologic al evaluation results: Right ear: [...] Emmanuel Member ID Guarantor Name 10/03/2024 2 [facility] - DOS ON OR AFTER 2023 - MEDICARE ADVANTAGE [place] & [place] (MEDICARE REPLACEMENT/AD VANTAGE - PPO) Yoana Blanca [id number] Yoana Blanca 10/03/2024 1 [place] [facility] Yoana Blanca [id number] Yoana Blanca Notes Date Note Type Note Provider Name and Address Organization Details Recorded Time 10/03/2024 text/html 58 year old [place] Zealander speaking female presents to the office for [...] helps translate for her. Significant other was translator and interpreter ANDRES ROWELL MD [address] [place] [address], [place], [address], [facility] - [facility] 10/03/2024 12:41:20 OBGyn Episode No OBEpisode recorded.
--- OUTSIDE RECORDS SUMMARY | 2025-01-17 12:23 | XMS_ITS ---
Author Organization [facility] Address [address] [address] Care Team Providers Care Wind Energy Mechanic Name Role Phone Salud Whittaker PA-C Primary Care Provider [phone] [id number] [id number] Program Status:Enrolled (Active) Start date:08/05/2023 Enrollment date:08/05/2023 Case Team Name Relationship Phone Meg Aguilar LPN (Responsible Staff) [phone] Continued Care and Services Coordination
--- OUTSIDE RECORDS SUMMARY | 2025-01-17 12:23 | XMS_ITS | Clinical Summary ---
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 Name Role Phone Salud Whittaker PA-C Primary Care Provider [phone] Source Comments PLEASE NOTE, if this patient [...] complication, without long-term current use of insulin ([facility]) Use qd, dx E11.9 50 Each 11 05/27/20 23 Active lancets (FREESTYLE LANCETS) 28 gaugeIndications: Type 2 diabetes mellitus without complication, without long-term current use of insulin ([facility]) Freestyle lite lancets, use QD, dx E11.9 50 Each 05/27/20 23 Active blood sugar diagnostic stripsIndications :Type 2 diabetes mellitus without complication, without long-term current use of insulin ([facility]) 1 Each daily. Freestyle lite strips use QD, dx E11.9 50 Each 11 05/27/20 23 Active blood-glucose meter monitoring kitIndications:Ty pe 2 diabetes mellitus without complication, without long-term current use of insulin ([facility]) 1 Each daily. Freestyle lite meter, disp [...] ELLIPTA 100-25 mcg/dose dsdvIndications:A sthma-COPD overlap syndrome ([facility]) TOME EDENILSON INHALACI N POR V A ORAL TODOS LOS D 08/01/20 23 Active INCRUSE ELLIPTA 62.5 mcg/actuation dsdvIndications:A sthma-COPD overlap syndrome (HCC-CMS) TOME EDENILSON INHALACI N POR V A ORAL TODOS LOS D Active sertraline (ZOLOFT) 100 mg tabletIndications :Bipolar affective disorder, remission status unspecified ([facility]) TOME EDENILSON TABLETA TODOS LOS D EN LA MA CHECO 08/09/20 23 Active phenytoin ER (DILANTIN) 100 mg ER capsuleIndication s:Bipolar affective disorder, remission status unspecified ([facility]) TOME 2 C PSULAS POR V A ORAL CADA DOCE HORAS 08/09/20 23 Active lidocaine-diphend hv-qk-upf-sim (FIRST[employer]) 508-21-171-40 mg/30 mL mouthwashIndicati ons:Aphthous ulcer Take 5 [...] (SYMBICORT) 160-4.5 mcg/actuation inhalerIndication s:Asthma-COPD overlap syndrome ([facility]) Inhale 2 Puffs into the [...] complication, without long-term current use of insulin ([facility]) 03/08/2023 Bipolar disorder ([facility]) 07/31/2022 Mild intermittent asthma, uncomplicated 07/31/20 Seizure ([facility]) 07/31/2022 Overview (08/15/2023): Dr Chela Billings, from [facility] (neurology)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 by VEEG, [...] October 29, 2019 9:26 EST Encounter info: [id number], [facility], Discharged OutPatient, 10/29/2019 - 10/29/2019 Document Contains Addenda Addendum by Terrell Slater NP on November 06, 2019 14:35 EST (Verified) Received from a neurological Associates [facility] dated November 15 2017 through July 10, [...] Slater NP Visit Information OUTPATIENT NEUROLOGY CONSULTATION [facility] DATE: 10/29/2019 CHIEF COMPLAINT: Headaches HISTORY OF PRESENT ILLNESS: The patient is a 53-year-old female Lithuanian speaking female with past medical hx of bipolar (following with [facility] every 3 months, & psychotherapist 1x /month ) Seizures - reportedly diagnosed at [facility] > 10 yrs ( was following [...] is accompanied by her boyfriend Yoshi. A finish cleaner is available for this visit. 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 Sensory Exam: Light touch, [...] obtain records from previous treating neurologist at [facility] for review and then we can decide [...] to obtain records from prior neurologist at [facility]. The patient will follow-up in our clinic in 3 months . The patient knows to call us sooner if there are any problems. Terrell Slater N.P. Department of Neurology [facility] cc: Impression and Plan Comprehensive Plan [...] May 04, 2019 15:42 EDT Encounter info: [id number], [facility], Disch ES, 05/04/2019 - 05/04/2019 * [...] 489 mGy*cm. COMPARISON: CT 11/03/2018. 12/15/2018. FINDINGS: Developer Prover Mechanical View Findings, Lines and Tubes: None. Visualized [...] and I agree with this report. WSN: [id number] Signature Line Dictated By: Lynette Arevalo MD [...] June 18, 2019 13:34 EDT Encounter info: [id number], [facility], Recurring OP, 05/29/2019 - [...] secondary to radial fracture, knee operation in [place]. Repair of right tibial and fibular fracture November 28, 2017 INTERVAL HISTORY: The patient comes in today for a followup visit, with the help of a finish cleaner. Cyndi was last seen 6 months ago. [...] July 02, 2019 11:37 EDT Encounter info: [id number], [facility], One Time OP, 07/02/2019 - 07/02/2019 [...] in signal. The flow voids through the [place] of [place] are maintained, and there is [...] represent chronic microangiopathic/small vessel ischemic change. WSN: [id number] Signature Line Dictated By: Timothy Pena MD Dictated Date/Time: 07/02/19 11:37 a Reviewed By: Timothy Pena MD Signed By: Timohty Pena MD Signed Date/Time: 07/02/19 11:37 am [...] March 20, 2019 10:37 EDT Encounter info: [id number], [facility], Disch Obv, 03/20/2019 - 03/22/2019 * [...] no focal bony lesion. 2. . WSN: [id number] Signature Line Dictated By: David Lee MD [...] October 29, 2019 9:26 EST Encounter info: [id number], [facility], Discharged OutPatient, 10/29/2019 - 10/29/2019 Document Contains Addenda Addendum by Terrell Slater NP on November 06, 2019 14:35 EST (Verified) Received from a [facility] dated November 15 2017 through July 10, [...] Slater NP Visit Information OUTPATIENT NEUROLOGY CONSULTATION [facility] DATE: 10/29/2019 CHIEF COMPLAINT: Headaches HISTORY OF PRESENT ILLNESS: The patient is a 53-year-old female Lithuanian speaking female with past medical hx of bipolar (following with [facility] every 3 months, & psychotherapist 1x /month ) Seizures - reportedly diagnosed at [facility] > 10 yrs ( was following [...] is accompanied by her boyfriend Yoshi. A finish cleaner is available for this visit. 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 Sensory Exam: Light touch, [...] obtain records from previous treating neurologist at [facility] for review and then we can decide [...] to obtain records from prior neurologist at [facility]. The patient will follow-up in our clinic in 3 months . The patient knows to call us sooner if there are any problems. Terrell Slater N.P. Department of Neurology [facility] cc: Impression and Plan Comprehensive Plan [...] EST Office Visit [facility] [address] [place] [address] Salud Whittaker PA-C [address] [place] [address] Health Maintenance Due Date Last Done Comments [facility] Counseling [address] Colonography 2010 Fecal DNA 2010 Flexible Sigmoidoscopy 2010 Imm-DTaP/Tdap/Td (1 - Tdap) 07/03/2013 07/02/2013 FIT/gFOBT 09/16/2017 09/16/2016 Diabetes Foot Exam 03/08/2024 03/08/2023 Diabetes Microalbumin (w/Creatinine) 03/08/2024 03/08/2023 [id number] ( season) 2024 04/01/2022, 04/30/2021, 04/09/2021 Imm-Influenza [...] Screening 09/26/2025 09/26/2024 Pap Smear 05/24/2026 05/24/2023, 2 05/2023, 02/08/2007 HPV Screening 03/24/2028 03/24/2023 Cervical [...] Date/Time Associated Diagnosis Comments REFERRAL SCANNED DOCUMENT 01/09/2025 3:00 AM EST REFERRAL SCANNED DOCUMENT 01/08/2025 3:00 AM EST REFERRAL SCANNED DOCUMENT 01/03/2025 3:00 AM EST REFERRAL SCANNED DOCUMENT 12/31/2024 3:00 AM EST REFERRAL SCANNED DOCUMENT 12/25/2024 3:00 AM EST REFERRAL SCANNED DOCUMENT 10/26/2024 3:00 AM EST HIV 1/2 AG & AB W/RFLX (4TH GEN) Routine 09/26/2024 1:05 PM EDT Routine general medical examination at a health care facility Type 2 diabetes mellitus without complication, without long-term current use of insulin ([facility]) Hand arthritis Essential hypertension, benign Mixed headache Left hip pain STD exposure COMPREHENSIVE METABOLIC PANEL Routine 09/26/2024 1:05 PM EDT Routine general medical examination at a [facility] Type 2 diabetes mellitus without complication, without long-term current use of insulin ([facility]) Hand arthritis Essential hypertension, benign Mixed headache Left hip pain STD exposure HEPATITIS C AB W/RFLX HCV RNA, QT, RT PCR Routine 09/26/2024 1:05 PM EDT Routine general medical examination at a [facility] Type 2 diabetes mellitus without complication, without long-term current use of insulin ([facility]) Hand arthritis Essential hypertension, benign Mixed headache Left hip pain STD exposure LIPID PANEL Routine 09/26/2024 1:05 PM EDT Routine general medical examination at a [facility] Type 2 diabetes mellitus without complication, without long-term current use of insulin ([facility]) Hand arthritis Essential hypertension, benign Mixed headache Left hip pain STD exposure HEMOGLOBIN GLYCOSYLATED A1C Routine 09/26/2024 1:05 PM EDT Routine general medical examination at a [facility] Type 2 diabetes mellitus without complication, without long-term current use of insulin ([facility]) Hand arthritis Essential hypertension, benign Mixed headache Left hip pain STD exposure MAMMO DIGITAL SCREEN [facility] W CAD 3D Routine 11/12/2023 3:00 AM EST Breast cancer screening by mammogram PAP SMEAR W/HPV, ABSTRACTED Routine 03/24/2023 10:00 AM EDT MICROALBUMIN/CREATININ E RATIO, URINE, RANDOM Routine 03/08/2023 3:27 PM EDT Routine general medical examination at a [facility] Asthma-COPD overlap syndrome ([facility]) Essential hypertension, benign Moderate persistent asthma without complication Lower urinary tract symptoms (LUTS) HISTORIC COLONOSCOPY 02/10/2023 3:00 AM EDT from Last 3 Months or Most Recently Relevant to Health Maintenance Results * REFERRAL SCANNED DOCUMENT (01/09/2025 3:00 AM EST) Only the most recent of6 resultswithin the time period is included. 01/09/2025 3:00 AM EST Salud Whittaker PA-C SCAN REFERRAL Final Result * HEPATITIS C AB W/RFLX HCV RNA, QT, RT PCR (09/26/2024 1:05 PM EDT) HEPATITIS C ANTIBODY NON-REACT MARY LOU NON-REACT MARY LOU [facility] Comment: HCV antibody was non-reactive. There is no laboratory evidence of HCV infection. In most cases, no further action is required. However, if recent HCV exposure is suspected, a test for HCV RNA (test code 48791) is suggested. For additional information please refer to http://education.YoungCracks/faq/UDH73y7 (This link is being provided for informational/ educational purposes only.) Blood Blood / Unknown 09/26/2024 1 :05 PM EDT 09/26/2024 1:06 PM EDT Narrative [facility] - 10/04/2024 9:33 AM EST FASTING:NO Salud Whittaker PA-C LAB - BLOOD DRAW Edited Resu lt - Final [facility] [address] [place] [id number], [facility] [address] [place] [phone] * HIV 1/2 AG & AB W/RFLX (4TH GEN) (09/26/2024 1:05 PM EDT) HIV AG/AB, 4TH GEN NON-REAC TIVE NON-REAC TIVE [facility] Comment: HIV-1 antigen and HIV-1/HIV-2 antibodies were [...] ?? For additional information please refer to http://education.Mapluck.Eagle-i Music/faq/DPL697 (This link is being provided for informational/ educational purposes only.) The performance of this assay has not been clinically validated in patients less than 2 years old. Blood Blood / Unknown 09/26/2024 1 :05 PM EDT 09/26/2024 1:06 PM EDT Narrative [facility] - 10/04/2024 9:33 AM EST FASTING:NO us Salud Whittaker PA-C LAB - BLOOD DRAW Final Resul t Performing Organization Address [facility] de Phone Number [facility] [address] [place] [phone], [facility] [address] [place] [phone] * HEMOGLOBIN GLYCOSYLATED A1C (09/26/2024 1:05 PM EDT) HEMOGLOBIN A1C 5.4 <5.7 % of total Hgb [facility] Comment: For the purpose of screening for the presence of diabetes: <5.7% ? Consistent with the absence of diabetes 5.7-6.4% ?Consistent with increased risk for diabetes ?(prediabetes) > or =6.5% ??Consistent with diabetes This assay result is consistent with a decreased risk of diabetes. Currently, no consensus exists regarding use of hemoglobin A1c for diagnosis of diabetes in children. According to [place] [employer] (ADA) guidelines, hemoglobin A1c <7.0% represents optimal control in non- diabetic patients. Different metrics may apply to specific patient populations. Standards of Medical Care in Diabetes(ADA). ?? Blood Blood / Unknown 09/26/2024 1 :05 PM EDT 09/26/2024 1:06 PM EDT Narrative [facility] - 10/04/2024 9:33 AM EST FASTING:NO us Salud Whittaker PA-C LAB - BLOOD DRAW Edited Resu lt - Final Performing Organization Address City/[facility] Co de Phone Number [facility] [address] [address], [facility] [address] [phone] * (ABNORMAL) LIPID PANEL (09/26/2024 1:05 PM EDT) CHOLESTEROL, TOTAL 208(H) <200 mg/dL [facility] HDL CHOLESTEROL 90 > OR = 50 mg/dL [facility] TRIGLYCERIDES 117 <150 mg/dL [facility] LDL-CHOLESTEROL 97 99 mg/dL (calc) [facility] Comment: Reference range: <100 Desirable range <100 mg/dL for primary prevention; ?? <70 mg/dL for patients with CHD or diabetic patients with > or = 2 CHD risk factors. LDL-C is now calculated using the Ricky calculation, which is a validated novel method providing better accuracy than the Friedewald equation in the estimation of LDL-C. Juno SS et al. OMAR. 2013;310(19): 9847-2514 (http://education.CV-Sight/faq/OZL403) CHOL/HDLC RATIO 2.3 <5.0 (calc) [facility] NON-HDL CHOLESTEROL 118 <130 mg/dL (calc) [facility] Comment: For patients with diabetes plus 1 major ASCVD risk factor, treating to a non-HDL-C goal of <100 mg/dL (LDL-C of <70 mg/dL) is considered a therapeutic option. Blood Blood / Unknown 09/26/2024 1 :05 PM EDT 09/26/2024 1:06 PM EDT Narrative [facility] - 10/04/2024 9:33 AM EST FASTING:NO us Salud Whittaker PA-C LAB - BLOOD DRAW Final Resul t Performing Organization Address City/[facility]/ZIP Co de Phone Number [facility] [address] [address], [facility] [address] [phone] * (ABNORMAL) COMPREHENSIVE METABOLIC PANEL (09/26/2024 1:05 PM EDT) GLUCOSE 72 65 - 139 mg/dL [facility] Comment: ?Non-fasting reference interval UREA NITROGEN (BUN) 11 7 - 25 mg/dL [facility] CREATININE (blood) 0.53 0.50 - 1.03 mg/dL [facility] EGFR 107 > OR = 60 mL/min/1. 73m2 [facility] BUN/CREATININE RATIO SEE NOTE: [facility] Comment: ?? Not Reported: BUN and Creatinine are within ?? reference range. ? SODIUM 138 135 - 146 mmol/L [facility] POTASSIUM 4.5 3.5 - 5.3 mmol/L [facility] CHLORIDE 103 98 - 110 mmol/L [facility] CARBON DIOXIDE 27 20 - 32 mmol/L [facility] CALCIUM 9.4 8.6 - 10.4 mg/dL [facility] PROTEIN, TOTAL 6.6 6.1 - 8.1 g/dL [facility] ALBUMIN 4.0 3.6 - 5.1 g/dL [facility] GLOBULIN 2.6 1.9 - 3.7 g/dL (calc) [facility] ALBUMIN/GLOBULI N RATIO 1.5 1.0 - 2.5 (calc) [facility] BILIRUBIN, TOTAL 0.2 0.2 - 1.2 mg/dL [facility] ALKALINE PHOSPHATASE 183(H) 37 - 153 U/L [facility] AST 17 10 - 35 U/L [facility] ALT 15 6 - 29 U/L [facility] Blood Blood / Unknown 09/26/2024 1 :05 PM EDT 09/26/2024 1:06 PM EDT Narrative [facility] - 10/04/2024 9:33 AM EST FASTING:NO us Salud Whittaker PA-C LAB - BLOOD DRAW Edited Resu lt - Final [facility] [address] [address], [facility] [address] [phone] * MAMMO DIGITAL SCREEN [facility] W CAD 3D (11/12/2023 3:00 AM EST) 11/12/2023 3:00 AM EST Salud Whittaker PA-C IMG MAMMO Edited Resul t - Final * PAP SMEAR W/HPV (03/24/2023 10:00 AM EDT) PAP SMEAR INTERPRETATION NORMAL NORMAL [facility] HPV (HUMAN PAPILLOMA) NEGATIVE NEGATIVE [facility] HPV TYPE 16 NEGATIVE NEGATIVE [facility] HPV TYPE 18 NEGATIVE NEGATIVE [facility] Swab 03/24/2023 10:0 0 AM EDT Impressions [facility] - 05/24/2023 10:31 AM EDT Negative for squamous intraepithelial lesion and malignancy High risk HPV assay: Negative Provider [facility] - NO BLOOD DRAW Final Result Performing Organization Address City/State/[facility] [place] [address], * MICROALBUMIN/CREATININE RATIO, URINE, RANDOM (03/08/2023 3:27 PM EDT) CREATININE, RANDOM URINE 122 20 - 275 mg/dL [facility] MICROALBUMIN 0.6 mg/dL [employer] [facility] Comment: Reference Range Not established MICROALBUMIN/CREA TININE RATIO, RANDOM URINE 5 <30 mcg/mg creat 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
--- OUTSIDE RECORDS SUMMARY | 2025-01-17 12:23 | XMS_ITS | Clinical Summary ---
Author Organization [address] [facility] Address [address] [place] [address] Phone Care Team Providers Care Mining Analyst Name Role Phone Slaud Whittaker Primary Care Provider [phone] Allergies Active Allergy Reactions Criticality Noted Date [...] Active butalbital-acet aminophen-caffe ine-codeine (FIORICET WITH CODEINE) [id number] mg per capsule Take 1 capsule by [...] Azithromycin for 5 days 3. Robitussin orally [id number] for cough 4. Continue only with Symbicort [...] 10:30 AM EST Office Visit Pulmonolgy - [address] [place] [address] Salud Mcgill NP [place] (Primary [...] DX:Diabetes mellitus type 2, controlled, with complications ([facility]) Esophageal reflux DX:Esophageal reflux Family History Medical [...] 2:00 PM EDT Office Visit Pulmonolgy - [place] [address] [facility] [address] [place] [id number] Salud Mcgill, JAMEEL [address] [facility] [address] [place] [address] Health Maintenance Due Date Last Done Comments Diabetes: Annual Foot Exam 1975 Diabetes: Annual Retina Eye Exam 1975 Social Influencers of Health Screening 11/06/2022 DTaP,Tdap,and Td Vaccines (2 - Td or Tdap) 07/02/2023 07/02/2013 COVID-19 Vaccine ( season) 2024 04/01/2022, 04/30/2021, 04/09/2021 Influenza Vaccine (#1) 2024 , 08/21/2019, 09/15/2015, Additional history exists Pneumococcal Vaccine: 50+ Years (3 of 3 - PCV20 or PCV21) 08/21/2024 08/21/2019, 02/11/2011 Pneumococcal Vaccine: Pediatrics (0 to 5 Years) and At-Risk Patients (6 to 64 Years) (3 of 3 - PCV20 or PCV21) 08/21/2024 08/21/2019, 02/11/2011 Diabetes: Annual Urine Albumin-Creatinine Ratio (uACR) 10/26/2024 [...] 09/26/2029 09/26/2024, 09/26/2024, 11/04/2023, Additional history exists Colorectal Cancer Screening: Colonoscopy 02/10/2033 02/10/2023 RSV Immunization Patients 60+ Years Old (1 - 1-dose 75+ series) 2040 Hepatitis A Vaccines Aged Out 11/13/2004, 05/15/20 04 No longer eligible based on patient's age to complete this topic Hepatitis B Vaccines Completed 11/13/2004, 06/15/2004, 05/15/2004 HIV Screening Completed 08/26/2020 Zoster Vaccines Completed 08/05/2021, 07/0 11/2020, 05/17/2018 Hepatitis C Screening Completed 09/26/2024, 020 [...] patient's age to complete this topic Meningococcal B Vacine Aged Out No lo nger eligible based on patient's age to complete [...] EDT Narrative 04/17/2024 4:53 PM EDT [facility] Diagnostic Imaging Department [address] [place] [address] Patient: ??EFE PIERRE ?/Age/Sex: 1965 - 58 - F Unit#: ??[id number] ? Location/Status: ??SPDICATLS/REG CLI ? Mnemonic/Ordering Site: [...] advised in one year. Dictating Physician: ??KAREY JIAN MD Electronically Signed by: ??KAREY JAIN MD Dic Date/Time: ??04/17/24 1647 Sign date/Time: ??04/17/24 1653 Procedure Note Karey Jain MD - 07/16/2024 [facility] Diagnostic Imaging Department [address] [place], [place] [id number] Patient: EFE PIERRE /Age/Sex: 1965 - 58 - F Unit#: [id number] Location/Status: SPDICATLS/REG CLI Mnemonic/Ordering Site: [facility] Ordering Physician: FEDE MONTEZ MD CT Lung [...] Sign date/Time: 04/17/24 1653 Fede Montez MD [facility] CT PROCEDURES Final Result * Annual BMP Blood Test (11/04/2023) Annual BMP Blood Test abstracted us Historical Provider HEALTH MAINTENANCE Final Result * Hemoglobin A1c (11/04/2023) [facility] Hemoglobin A1C 0.0 % Comment:abstracted, no inter pretation Blood Venous blood specimen / Unknown [facility] Provider LAB BLOOD ORDERABLES Vianca l Result * Lipid panel (11/04/2023) [facility] Triglycerides 0 mg/dL Comment:abstracted, no inter pretation Cholesterol 0 mg/dL Comment:abstracted, no inter pretation HDL 0 mg/dL Comment:abstracted, no inter pretation LDL Cholesterol 0 mg/dL Comment:abstracted, no inter pretation Blood Venous blood specimen / Unknown [facility] Provider LAB BLOOD ORDERABLES Vianca l Result * Cervical Cancer Screening: HPV (03/24/2023) [facility] Cervical Cancer Screening: HPV abstracted, no interpretation [facility] Provider HEALTH MAINTENANCE Final Result * Urine Albumin Creatinine Ratio (03/08/2023) [facility] Urine Albumin Creatinine Ratio abstracted [facility] HEALTH MAINTENANCE Final Result * Colonoscopy (02/10/2023) [facility] Colonoscopy abstracted, no interpretation Anatomical Region Laterality Modality Other [facility] HEALTH MAINTENANCE Final Result * HIV Screening (08/26/2020) [facility] HIV Screening abstracted [facility] Provider HEALTH MAINTENANCE Final Result * Hepatitis C Screening (08/26/2020) [facility] Hepatitis C Screening abstracted [facility] Provider HEALTH MAINTENANCE Final Result * DARIEL SCREENING DIGITAL (08/08/2019 5:14 PM EDT) Anatomical Region Laterality Modality Mammography 08/08/2019 1:51 PM EDT Narrative 08/08/2019 5:14 PM [facility] Diagnostic Imaging Department [address] [place] [id number] Patient: ??EFE PIERRE ?/Age/Sex: 1965 - 53 - F Unit#: ??[id number] ? Location/Status: ??SPDIMAM/REG CLI ? Mnemonic/Ordering Site: ??DIGSC/SPMAM Ordering Physician: ??MARIETTA HERNANDEZ APRN Dariel Screening Digital - 08/08/19 - 1421 EXAM: [facility] Screening Digital EXAM DATE AND TIME: 08/08/2019 2:22 PM HISTORY: ??Screening. Reduction mammoplasty in 2007. Maternal grandmother had breast carcinoma. COMPARISON: ??08/29/14, 05/24/13, 04/30/11 TECHNIQUE: CC and MLO views of both breasts were obtained using full field digital mammography. Bilateral digital breast tomosynthesis was performed in the MLO projection. 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 TISSUE DENSITY: b. There [...] Routine screening mammogram BILATERAL in 1 year. 22382, 43533 3342F, 7039F Dictating Physician: ??AMALIA BALLARD MD Electronically Signed by: ??AMALIA BALALRD MD Dic Date/Time: ??08/08/191712 Sign date/Time: ??08/08/191713 Procedure Note Amalia Ballard - 11/17/2022 [facility] Diagnostic Imaging Department [address] [place] [address] Patient: EFE PIERRE/Age/Sex: 1965 - 53 - F Unit#: [id number] Location/Status: [facility] Mnemonic/Ordering Site: [facility] Ordering Physician: MARIETTA HERNANDEZ APRN [facility] Screening Digital - 08/08/19 - 1421 EXAM: [facility] Screening Digital EXAM DATE AND TIME: 08/08/2019 2:22 PM HISTORY: Screening. Reduction mammoplasty in 2007. Maternal grandmotherhad breast carcinoma. COMPARISON: 08/29/14, 05/24/13, 04/30/11 TECHNIQUE: CC and MLO views of both breasts were obtained using fullfield digital mammography. Bilateral digital breast tomosynthesis was performedin the MLO projection. Computer aided detection with the [employer] 7.2-Hwas employed. TISSUE DENSITY: b. There are [...] Routine screening mammogram BILATERAL in 1 year. 76552, 53065 3342F, 7025F Dictating Physician: AMALIA BALLARD MD Electronically Signed by: AMALIA BALLARD MD Dic Date/Time: 08/08/191712 Sign date/Time: 08/08/191713 Marietta Hernandez APN IM BI PROCEDURES Final Result from Last 3 Months or Most Recently Relevant to Health Maintenance Insurance MEDICAID - [place] Care Teams Mining Analyst Relationship Specialty Start Date End Date Salud Whittaker PA [address] [place] [address] PCP - General Internal Medicine 06/05/21
== END 2025-01-17 11:42 | disposition home or self-care (01) ==
PROVIDERS: PCP Physician Assistant; Visit Provider Anesthesiology
DX: M50.323 Other cervical disc degeneration at C6-C7 level (principal); M54.12 Radiculopathy, cervical region; G89.4 Chronic pain syndrome; M47.812 Spondylosis without myelopathy or radiculopathy, cervical region
CPT/HCPCS: 99024

== ENCOUNTER → 2025-01-17 11:02 | Outpatient (BNVA) | payer MEDICAID, SELFPAY | PROVIDERS: PCP Physician Assistant; Visit Provider Anesthesiology | DX: M50.323 Other cervical disc degeneration at C6-C7 level (principal); M54.12 Radiculopathy, cervical region; M47.812 Spondylosis without myelopathy or radiculopathy, cervical region; G89.4 Chronic pain syndrome | CPT/HCPCS: 99212 ==

== ENCOUNTER 2025-02-18 10:36 | Outpatient (AMB) | payer MEDICAID, SELFPAY ==
[2025-02-18 11:01] VITALS: BP 132/82; PULSE 80; O2SAT 95; BMI 32.1
--- NOTE | 2025-02-18 11:01 | A.OFFVIS_ITS ---
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 Raw Stock Required: No Allergies No Known Allergies Allergy (Verified 02/18/25 11:02) Medication List - Last Reconciled 02/18/25 by Armida Pichardo, VICE PRESIDENT OF ADVERTISING albuterol sulfate 90 mcg/actuation (Ventolin HFA) 2 puffs inhalation QID PRN fszclqyzcb-rxqelfniqbseo-mnzg 50-325-40 mg 1 tab PO DAILY PRN cetirizine 10 mg PO DAILY cyanocobalamin (vitamin B-12) (Vitamin B-12) 2,500 mcg PO DAILY cyclobenzaprine 5 mg PO BEDTIME PRN cyclobenzaprine 10 mg PO BEDTIME dulaglutide (Trulicity) mg subcut QWEEK famotidine 20 mg PO BID PRN gabapentin 100 mg PO TID ipratropium-albuterol 0.5 mg-3 mg(2.5 mg base)/3 mL mL inhalation BID lisinopril 5 mg PO BEDTIME meloxicam 15 mg PO DAILY mirtazapine 7.5 mg PO BEDTIME montelukast 10 mg PO BEDTIME ondansetron HCl 4 mg PO DAILY oxcarbazepine 600 mg PO BID pantoprazole 40 mg PO QAM phenytoin sodium extended 200 mg PO sertraline 100 mg PO QAM topiramate 25 mg PO DAILY HPI Comments Details: Yoana is back in my office after sprint PNS completion therapy. She reports excellent pain relief. She reports great mobility good activities of daily living very good social interactions. She reports today that her pain level is 0 to 1/10. This is very good results of sprint PNS. I told the patient that it should last about 6-8 months from now. Patient is very happy about her treatment here. The dressing was removed and sites were prepped with ChloraPrep. Gentle tracking was applied to the PNS wires and they were removed. Tips were intact. No pathological discharge no redness no swelling were observed. Sterile dressings were applied. Prior: diagnostic medial branch block C4-C5 C6 bilateral which was performed on 10/02/2024. Prior: very pleasant 58 years old female who presents in my office with complains on pain in the cervical spine with radiation into bilateral upper extremities all the way to her mid forearms bilaterally. She denies radiation of the pain into wrists fingers or hands. She reports the pain mostly axial and radiation of the pain is on the background. She admits pain aggravation with flexing had backwards. She admits tenderness on palpation in paraspinal regions in the cervical spine. Therefore the pain of the patient is most likely facetogenic in nature. I offered the patient diagnostic medial branch block C4- C5 C6 bilateral to help her pain. I explained the nature of diagnostic block to the patient. She had extensive physical therapy which alleviated her pain minimally. She has not satisfied with results of physical therapy. She tried OTC NSAIDs to help her pain however those medications do not help her pain. On the MRI of the cervical spine there are some changes dictated as below. All of those changes could be possible pain generators for this patient. [facility] Social History (Updated 03/29/24 @ 15:24 by Nohemi Church) Substance Use Type: Marijuana Review of Systems Const All systems reviewed & are unremarkable except as noted in HPI and below ENT Reports Normal hearing present Neuro Reports Normal hearing present, Denies Abnormal speech present, Denies confusion and Denies Sensory deficit (Neuro) Psych Denies confusion Physical Exam Vital Signs: Last Vital Signs Pulse 80 02/18/25 11:01 BP 132/82 02/18/25 11:01 Pulse Ox 95 02/18/25 11:01 Oxygen Delivery Method Room Air 02/18/25 11:01 BMI result Body Mass Index 32.1 Const General: no acute distress; No confusion Orientation/consciousness: patient oriented x3 and No confusion Eyes General: appearance normal, both eyes and all related structures Pupils: Equal, round and reactive pupils present EOM: EOMs intact bilaterally Neck Other: Limited range of motion cervical spine however with improvement today. Denies incontinence with urine and/or stool. Denies urinary retention. Denies weakness of bilateral lower extremities. Admits pain in bilateral knees and general fatigue. Tenderness on palpation in paraspinal spinal region of cervical spine. Bicep tendon reflexes and triceps tendon reflexes are brisk +2 however no clonus is observed. Neck: No full ROM and No supple Chest Chest palpation & inspection: normal inspection of the chest Resp Effort & Inspection: normal respiratory effort, able to speak in complete sentences, normal respiratory pattern, no audible wheezes and no cough Cardio Jugular venous distension: no JVD GI Inspection: Yes normal to inspection Neuro General: patient oriented x3, gait normal and No confusion Cranial nerves: Yes CN's II-XII intact bilaterally, Yes Equal, round and reactive pupils present, Yes Normal hearing present and Yes Ability to bilaterally elevate shoulders present Speech: No Abnormal speech present Gait exam (Neuro): Normal gait present Motor exam (neuro): 5/5 motor strength present throughout Sensory Exam: No Sensory deficit (Neuro) Extrem General: No pedal edema Psych Speech and movement: Normal speech and movement present Affect: normal affect Attitude: cooperative Thought process: Normal thought process present Thought content: Normal thought content present Insight: Good insight present (Psych) Judgement: Good judgement present (Psych) Results Reviewed Results Reviewed: MR SPINE CERVICAL without CONTRAST INDICATION: Foraminal stenosis of cervical region, pain. TECHNIQUE: Unenhanced multiplanar, multisequence MR imaging of the cervical spine. COMPARISON: None Available. FINDINGS: There is straightening of the normal cervical lordosis. Vertebral heights are well maintained. Craniocervical junction is unremarkable. There is a T2 and T1 hyperintense vertebral body lesion at the T2 vertebral level which could represent a hemangioma. Prevertebral and paraspinal soft tissues are within normal limits. Visualized portions of the posterior fossa are unremarkable. Cervical cord demonstrates normal course, caliber, and signal characteristics. No epidural fluid collection or hematoma is identified. At C2-3 there is no significant disc herniation or protrusion. No central canal or neural foraminal stenosis is demonstrated. At C3-4 there is no significant disc herniation or protrusion. Uncovertebral hypertrophy seen throughout the cervical spine. There is mild bilateral neural foraminal narrowing appreciated. No central canal stenosis is seen. At C4-5 there is slight disc bulge with uncovertebral hypertrophy. There is mild left neural foraminal narrowing and effacement of the ventral thecal sac. No central canal stenosis is seen At C5-6 there is broad-based central disc herniation with mild to moderate bilateral neural foraminal narrowing, left greater than right. Uncovertebral hypertrophy is identified. There is effacement of the ventral thecal sac. No central canal stenosis is seen. At C6-7 there is left subarticular disc protrusion is identified. There is moderate to severe left neural foraminal narrowing. Uncovertebral hypertrophy is appreciated. There is effacement of the ventral thecal sac. At C7-T1 there is central disc bulge with mild left neural foraminal narrowing. Uncovertebral hypertrophy is identified with effacement of the ventral thecal sac. IMPRESSION: Multilevel degenerative changes of the cervical spine are identified, most pronounced at C5-6 and C6-7. Uncovertebral hypertrophy is seen throughout the cervical spine Assessment & Plan Assessment & Plan (1) Other cervical disc degeneration at C6-C7 level: Code(s): M50.323 - Other cervical disc degeneration at C6-C7 level Category: Medical (2) Radiculopathy, cervical: Code(s): M54.12 - Radiculopathy, cervical region Category: Medical (3) Chronic pain syndrome: Code(s): G89.4 - Chronic pain syndrome Category: Medical (4) Spondylosis of cervical region without myelopathy or radiculopathy: Code(s): M47.812 - Spondylosis without myelopathy or radiculopathy, cervical region Category: Medical Plan Patient is doing very good after completion of the therapy with sprint PNS. Reports excellent mobility good activities of daily living good social interactions. We would expect continuation of pain relief for 6-8 months from now. Next appointment is as needed. Coding Level of Care Code Est Pt Level 3 (21881) Diagnoses Other cervical disc degeneration at C6-C7 level M50.323 Radiculopathy, cervical M54.12 Chronic pain syndrome G89.4 Spondylosis of cervical region without myelopathy or radiculopathy M47.812
== END 2025-02-18 11:04 | disposition home or self-care (01) ==
LOC: HO.PMC 10:37
PROVIDERS: PCP Physician Assistant; Visit Provider Anesthesiology
DX: M50.323 Other cervical disc degeneration at C6-C7 level (principal); M54.12 Radiculopathy, cervical region; G89.4 Chronic pain syndrome; M47.812 Spondylosis without myelopathy or radiculopathy, cervical region
CPT/HCPCS: 99213

== ENCOUNTER → 2025-02-18 10:36 | Outpatient (BNVA) | payer MEDICAID, SELFPAY | PROVIDERS: PCP Physician Assistant; Visit Provider Anesthesiology | DX: M50.323 Other cervical disc degeneration at C6-C7 level (principal); M54.12 Radiculopathy, cervical region; M47.812 Spondylosis without myelopathy or radiculopathy, cervical region; G89.4 Chronic pain syndrome | CPT/HCPCS: 99212 ==

== ENCOUNTER → 2025-03-04 10:34 | Outpatient (BNVA) | payer MEDICAID, SELFPAY | PROVIDERS: PCP Physician Assistant; Visit Provider Anesthesiology ==